=== PATIENT | female | born 1950 | race Caucasian/White ===

== ENCOUNTER 2019-05-01 14:57 | Emergency (ER) | payer MEDICARE ==
[~2019-05-01] VITALS: Ht 172.7 cm; Wt 107.0 kg
--- NOTE | 2019-05-01 15:51 | ED General ---
General Stated Complaint: ALTERED MENTAL STATUS Source of Information: Patient, Family Exam Limitations: Other (difficulty thinking of words) History of Present Illness Date Seen by Provider: May 01, 2019 Time Seen by Provider: 15:30 Initial Comments The patient is a very pleasant 68-year-old female who presents for evaluation of difficulty speaking and confusion. She states that her symptoms started yesterday morning. She states that she had an appointment with her PCP yesterday for the confusion. Today the patient had a phone call with her daughter who lives out of state and the daughter called the patient's sister who lives locally. The patient's sister had not seen the patient for about 2 or 3 weeks. The patient denies headache, acute visual changes, neck pain, nausea or vomiting, focal weakness or focal numbness, chest pain or shortness of breath, abdominal or back pain, difficulty walking, or syncope. The patient's sister noted some slurred speech at home but feels that it is better now. The patient is able to tell me her name and the year but she struggles to tell me the president's name and where she is. She appears frustrated and realizes that she is having difficulty with word finding. She mentions that she had a small stroke years ago but that there was no treatment recommended and that it was incidentally found. Severity: Moderate Associated Systoms: Denies Symptoms Allergies and Home Medications Patient Home Medication List Home Medication List Reviewed: Yes Review of Systems Review of Systems Constitutional: no symptoms reported EENTM: no symptoms reported Respiratory: no symptoms reported Cardiovascular: no symptoms reported Gastrointestinal: no symptoms reported Genitourinary: no symptoms reported Musculoskeletal: no symptoms reported Skin: no symptoms reported Psychiatric/Neurological: Other (confusion, difficulty speaking) Hematologic/Lymphatic: No Symptoms Reported Immunological/Allergic: no symptoms reported All Other Systems Reviewed Negative Unless Noted: Yes Past Klnklcj-Fwpjzp-Itpkno Hx Past Med/Social Hx: Reviewed Nursing Past Med/Soc Hx Physical Exam Vital Signs Capillary Refill : Height, Weight, BMI Height: '" Weight: lbs. oz. kg; BMI Method: General Appearance: No Apparent Distress, WD/WN Eyes: Bilateral Eye Normal Inspection, Bilateral Eye PERRL, Bilateral Eye EOMI HEENT: PERRL/EOMI, TMs Normal Neck: Full Range of Motion, Normal Inspection, Non Tender, Supple Respiratory: Chest Non Tender, Lungs Clear, Normal Breath Sounds, No Accessory Muscle Use, No Respiratory Distress Cardiovascular: Regular Rate, Rhythm, No Edema, No Murmur Gastrointestinal: Normal Bowel Sounds, No Organomegaly, No Pulsatile Mass, Soft Extremity: Normal Capillary Refill, Non Tender Neurologic/Psychiatric: Alert, Oriented x3, No Motor/Sensory Deficits, Normal Mood/Affect, 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 Norm as Tested, Other (no facial droop or dysphasia noted, excellent strength in all extremities, normal gait, difficulty finding words and mild confusion, NIH: 2 (aphasia, slurred speech)) Skin: Normal Color, Warm/Dry Progress/Results/Core Measures Suspected Sepsis SIRS Temperature: Pulse: Respiratory Rate: Laboratory Tests 05/01/19 16:24: White Blood Count 10.0 Blood Pressure / Mean: Laboratory Tests 05/01/19 16:24: Creatinine 0.90, INR Comment 1.0, Platelet Count 245, Total Bilirubin 0.2 Results/Orders Lab Results Laboratory Tests Test 05/01/19 16:24 Range/Units White Blood Count 10.0 4.3-11.0 10^3/uL Red Blood Count 4.11 L 4.35-5.85 10^6/uL Hemoglobin 13.4 11.5-16.0 G/DL Hematocrit 40 35-52 % Mean Corpuscular Volume 98 80-99 FL Mean Corpuscular Hemoglobin 33 25-34 PG Mean Corpuscular Hemoglobin Concent 33 32-36 G/DL Red Cell Distribution Width 12.8 10.0-14.5 % Platelet Count 245 130-400 10^3/uL Mean Platelet Volume 9.1 7.4-10.4 FL Neutrophils (%) (Auto) 58 42-75 % Lymphocytes (%) (Auto) 31 12-44 % Monocytes (%) (Auto) 8 0-12 % Eosinophils (%) (Auto) 2 0-10 % Basophils (%) (Auto) 1 0-10 % Neutrophils # (Auto) 5.8 1.8-7.8 X 10^3 Lymphocytes # (Auto) 3.1 1.0-4.0 X 10^3 Monocytes # (Auto) 0.8 0.0-1.0 X 10^3 Eosinophils # (Auto) 0.2 0.0-0.3 10^3/uL Basophils # (Auto) 0.1 0.0-0.1 10^3/uL Prothrombin Time 13.5 12.2-14.7 SEC INR Comment 1.0 0.8-1.4 Activated Partial Thromboplast Time 28 24-35 SEC Sodium Level 144 135-145 MMOL/L Potassium Level 4.1 3.6-5.0 MMOL/L Chloride Level 104 98-107 MMOL/L Carbon Dioxide Level 28 21-32 MMOL/L Anion Gap 12 5-14 MMOL/L Blood Urea Nitrogen 18 7-18 MG/DL Creatinine 0.90 0.60-1.30 MG/DL Estimat Glomerular Filtration Rate > 60 BUN/Creatinine Ratio 20 Glucose Level 139 H 70-105 MG/DL Calcium Level 8.9 8.5-10.1 MG/DL Corrected Calcium 8.8 8.5-10.1 MG/DL Magnesium Level 1.9 1.6-2.4 MG/DL Total Bilirubin 0.2 0.1-1.0 MG/DL Aspartate Amino Transf (AST/SGOT) 16 5-34 U/L Alanine Aminotransferase (ALT/SGPT) 10 0-55 U/L Alkaline Phosphatase 66 40-136 U/L Troponin I < 0.30 <0.30 NG/ML Total Protein 6.9 6.4-8.2 GM/DL Albumin 4.1 3.2-4.5 GM/DL My Orders Orders - LIZETH RUDOLPH DO Cbc With Automated Diff (05/01/19 15:28) Comprehensive Metabolic Panel (05/01/19 15:28) Creatine Kinase (05/01/19 15:28) Creatine Kinase Mb (05/01/19 15:28) Magnesium (05/01/19 15:28) Protime With Inr (05/01/19 15:28) Partial Thromboplastin Time (05/01/19 15:28) Ua Culture If Indicated (05/01/19 15:28) Ct Head Wo (05/01/19 15:28) Ekg Tracing (05/01/19 15:59) Troponin I (05/01/19 15:59) Therapy Coordinator (05/01/19 15:59) Vital Signs/I&O Capillary Refill : Progress Note : Progress Note @1710 - patient and family updated on lab and imaging results. I'm still convinced the patient is having stroke-like symptoms and feel that she needs additional imaging of her brain and possible MRI and neurologic workup and evaluation. The patient and her family agree. [facility] does not have an MRI or neurology ability so the patient was given a choice between the next closest hospitals and either [facility] or the [facility]. She prefers to go to [place]. Jennifer Baltazar's transfer line was called at this time. They will get a hospitalist on the line and call back. @1720 - Dr. Walter Lechuga at [facility] [place] accepts the pt for transfer. He is agreeable to private vehicle (as the patient originally preferred) or ambulance transport. ECG Comment @1625 - Sinus bradycardia., Rate of 54, no acute ischemic findings noted, no STEMI, reviewed and interpreted by myself Diagnostic Imaging Comments [facility], [place] NAME: PATRICIA CURRAN [facility] REC#: [id number] PT STATUS: REG ER : 1950 PHYSICIAN: LIZETH RUDOLPH DO ADMIT DATE: 05/01/19/ER FS Draft Date of Exam:05/01/19 CT HEAD WO PROCEDURE: CT head without contrast. TECHNIQUE: Multiple contiguous axial images were obtained through the brain without the use of intravenous contrast. Auto Exposure Controls were utilized during the CT exam to meet ALARA standards for radiation dose reduction. INDICATION: Altered mental status. Confusion. COMPARISON: None. FINDINGS: BRAIN: No parenchymal hemorrhage, midline shift, or mass effect. Focal hypodensities in the region of both caudate heads are compatible with old lacunar infarcts. Adrian-white matter differentiation is adequately preserved, without evidence of acute territorial infarct. Moderate periventricular and subcortical low-density white matter changes. Mild prominence of the ventricles and sulci consistent with cortical and cerebellar parenchymal volume loss. EXTRA-AXIAL SPACES: No subdural or epidural collections. ORBITS AND PARANASAL SINUSES: Visualized orbits and globes are intact. Visualized paranasal sinuses and mastoid air cells are clear. CALVARIUM AND SOFT TISSUES: The calvarium is intact. No fractures or suspicious bony lesions. The extracranial soft tissues are unremarkable. IMPRESSION: No acute intracranial pathology. Chronic changes consisting of old lacunar infarcts, age-related volume loss, and nonspecific white matter disease, most commonly attributed to small vessel ischemic change. Dictated on workstation # [id number] Dict: 05/01/19 1605 Trans: 05/01/19 1608 [id number] Interpreted by: MIGUEL MORENO DO Electronically signed by: Departure Impression Primary Impression: Stroke-like symptoms Additional Impressions: Aphasia Slurred speech Disposition: XFER SHT-TRM HOSP Condition: Stable Transfer Time Spoke to Accepting Phy: 17:[address] Walter Lechuga at [facility] accepts the transfer Transfer Time: 17:30 Transfer Facility: [facility] Departure-Patient Inst. Referrals: NO,LOCAL PHYSICIAN (PCP/Family) Primary Care Physician LIZETH RUDOLPH DO May 01, 2019 15:51
--- NOTE | 2019-05-01 16:09 | Diagnostic Imaging Report ---
PROCEDURE: CT head without contrast. TECHNIQUE: Multiple contiguous axial images were obtained through the brain without the use of intravenous contrast. Auto Exposure Controls were utilized during the CT exam to meet ALARA standards for radiation dose reduction. INDICATION: Altered mental status. Confusion. COMPARISON: None. FINDINGS: BRAIN: No parenchymal hemorrhage, midline shift, or mass effect. Focal hypodensities in the region of both caudate heads are compatible with old lacunar infarcts. Adrian-white matter differentiation is adequately preserved, without evidence of acute territorial infarct. Moderate periventricular and subcortical low-density white matter changes. Mild prominence of the ventricles and sulci consistent with cortical and cerebellar parenchymal volume loss. EXTRA-AXIAL SPACES: No subdural or epidural collections. ORBITS AND PARANASAL SINUSES: Visualized orbits and globes are intact. Visualized paranasal sinuses and mastoid air cells are clear. CALVARIUM AND SOFT TISSUES: The calvarium is intact. No fractures or suspicious bony lesions. The extracranial soft tissues are unremarkable. IMPRESSION: No acute intracranial pathology. Chronic changes consisting of old lacunar infarcts, age-related volume loss, and nonspecific white matter disease, most commonly attributed to small vessel ischemic change. Dictated by: Dictated on workstation # [id number]
[2019-05-01 16:32] LABS: BASOPHILS # (AUTO) 0.1 10^3/uL (0.0-0.1); BASOPHILS % (AUTO) 1 % (0-10); EOSINOPHILS # (AUTO) 0.2 10^3/uL (0.0-0.3); EOSINOPHILS % (AUTO) 2 % (0-10); HEMATOCRIT 40 % (35-52); HEMOGLOBIN 13.4 G/DL (11.5-16.0); LYMPHOCYTES # (AUTO) 3.1 X 10^3 (1.0-4.0); LYMPHOCYTES % (AUTO) 31 % (12-44); MEAN CORPUSCULAR HEMOGLOBIN 33 PG (25-34); MEAN CORPUSCULAR HGB CONC 33 G/DL (32-36); MEAN CORPUSCULAR VOLUME 98 FL (80-99); MEAN PLATELET VOLUME 9.1 FL (7.4-10.4); MONOCYTES # (AUTO) 0.8 X 10^3 (0.0-1.0); MONOCYTES % (AUTO) 8 % (0-12); NEUTROPHILS # (AUTO) 5.8 X 10^3 (1.8-7.8); NEUTROPHILS % (AUTO) 58 % (42-75); PLATELET COUNT 245 10^3/uL (130-400); RED CELL DISTRIBUTION WIDTH 12.8 % (10.0-14.5)
[2019-05-01 16:45] LABS: PROTHROMBIN TIME PATIENT 13.5 SEC (12.2-14.7)
[2019-05-01 16:52] LABS: SODIUM 144 MMOL/L (135-145)
[2019-05-01 16:53] LABS: ALANINE AMINOTRANSFERASE 10 U/L (0-55); ALKALINE PHOSPHATASE 66 U/L (40-136); BUN/CREATININE RATIO 20; CALCIUM 8.9 MG/DL (8.5-10.1); CARBON DIOXIDE 28 MMOL/L (21-32); CHLORIDE 104 MMOL/L (98-107); GFR ESTIMATED > 60; GLUCOSE 139 MG/DL (70-105); MAGNESIUM 1.9 MG/DL (1.6-2.4); POTASSIUM 4.1 MMOL/L (3.6-5.0); TOTAL PROTEIN 6.9 GM/DL (6.4-8.2)
[2019-05-01 16:54] LABS: ALBUMIN 4.1 GM/DL (3.2-4.5); BILIRUBIN,TOTAL 0.2 MG/DL (0.1-1.0)
[2019-05-01 18:20] VITALS: BP 122/71
[2019-05-02 09:25] LABS: CREATINE KINASE 64 U/L (29-168)
[2019-05-02 09:31] LABS: CREATINE KINASE MB 1.3 NG/ML (<6.6)
== END 2019-05-01 18:20 | disposition short-term general hospital (02) ==
LOC: EDUNIT# 14:57 → ER FS 14:58
DX: R29.818 Other symptoms and signs involving the nervous system (principal); R47.01 Aphasia; R47.81 Slurred speech; Z86.73 Personal history of transient ischemic attack (TIA), and cerebral infarction without residual deficits
CPT/HCPCS: 36415; 70450; 80053; 82550; 82553; 83735; 84484; 85025; 85610; 85730; 93005

== ENCOUNTER → 2020-02-18 | Outpatient (CLI) | payer MEDICARE ==
--- NOTE | 2020-02-18 16:26 | Diagnostic Imaging Report ---
EXAMINATION: CT Lung Screening. INDICATION: History of tobacco use with a 51 pack year history. Currently smoking one half pack to one pack a day. Cough and shortness of air. TECHNIQUE: Noncontrast, low-dose CT imaging performed according to lung cancer screening protocol. Auto Exposure Controls were utilized during the CT exam to meet ALARA standards for radiation dose reduction. COMPARISON: None. FINDINGS: HEART/MEDIASTINUM: The heart size normal. Scattered mildly prominent coronary artery calcification. Thoracic aortic contour appearing unremarkable with mild wall calcification. There are a few prominent mediastinal lymph nodes present. The majority of these have a short axis dimension of less than 1 cm. The largest in the right precarinal region measures 14 x 12 mm. LUNGS/MEASURED PULMONARY NODULES: There are scattered areas of peribronchial thickening. There are multiple areas of endobronchial filling defect. Marker lesions are as follow: Image 86 series 2, 8 mm endobronchial lesion, left upper lobe. Image 102 series 2, 3 mm filling defect in the superior segment of the left lower lobe. Image 135 series 2, 4 mm filling defect centrally in the left lower lobe. Image 149 series 2, central right lower lobe 6 mm filling defect. Image 166 series 2, 6 mm filling defect. There is a solid nodule along the undersurface of the right major fissure, right lower lobe. This measures 8 x 6 x 4 mm. OTHER: The visualized portions of the upper abdomen are unremarkable. The thoracic spine is with mildly advanced degenerative change. IMPRESSION: 1. Multiple endobronchial filling defects. Given additional scattered peribronchial thickening and multiplicity, these likely reflect mucus secretions, perhaps owing to chronic bronchitis. Developing true endobronchial nodules would not be excluded on this baseline study. 2. Nodular density along the fissure plane right lower lobe. Given location, this favors a likely benign process. 3. Scattered coronary artery calcification. LUNG-RADS CATEGORY: 4 A-S. LUNG SCREENING MANAGEMENT/RECOMMENDATIONS: 3 month followup low-dose CT study. Please note that this is a low dose CT examination, intended for lung cancer screening of high risk patients. As a technical result, the examination is limited in diagnostic quality compared to a conventional CT examination of the chest. Dictated by: Dictated on workstation # [id number]
== END ==
LOC: RAD 12:46
PROVIDERS: ATTEND Nurse Practitioner Family
DX: Z12.2 Encounter for screening for malignant neoplasm of respiratory organs (principal); F17.210 Nicotine dependence, cigarettes, uncomplicated; R91.8 Other nonspecific abnormal finding of lung field; I25.10 Atherosclerotic heart disease of native coronary artery without angina pectoris

== ENCOUNTER → 2020-06-02 | Outpatient (CLI) | payer MEDICARE | LOC: CARD 12:14 | PROVIDERS: ATTEND Internal Medicine Cardiovascular Disease | DX: I25.10 Atherosclerotic heart disease of native coronary artery without angina pectoris (principal); I10 Essential (primary) hypertension; E11.9 Type 2 diabetes mellitus without complications; E78.2 Mixed hyperlipidemia | CPT/HCPCS: 93306 ==

== ENCOUNTER → 2020-06-16 | Outpatient (CLI) | payer MEDICARE ==
[~2020-06-16] VITALS: Ht 175 cm; Wt 109.0 kg
[~2020-06-16] MED LIST: CATHETER FLUSH 10 ML SYR IV PRN; REGADENOSON 0.4 MG/5 ML SYR (LEXISCAN) IV ONE
[2020-06-16 10:50] VITALS: BP 174/94
== END ==
LOC: CARD 08:45
PROVIDERS: ATTEND Internal Medicine Cardiovascular Disease
DX: I25.10 Atherosclerotic heart disease of native coronary artery without angina pectoris (principal); E11.9 Type 2 diabetes mellitus without complications; I10 Essential (primary) hypertension; E78.2 Mixed hyperlipidemia
CPT/HCPCS: 78452; 93017; A9502

== ENCOUNTER 2020-06-23 13:00 | Day surgery (SDC) | payer MEDICARE ==
[~2020-06-23] VITALS: Ht 175 cm; Wt 109.0 kg
[2020-06-23] VITALS (12 sets, daily range): BP systolic 121–149; BP diastolic 53–87
[2020-06-23] MEDS ORDERED: NS IV 1000 ML 1,000 ML IV SCH ×2 (13:15→14:53)
[2020-06-23] MEDS ORDERED: HEParin (CATH LAB) 2,000 ML IV ONE (13:17)
[2020-06-23] MEDS ORDERED: NS IV 1000 ML 1,000 ML ONE (13:17)
[2020-06-23] MEDS ORDERED: LIDOCAINE 1% INJ 20 ML 20 ML VIAL ONE (13:17)
[2020-06-23 13:35] LABS: HEMOGLOBIN 14.2 g/dL (11.5-16.0); MEAN PLATELET VOLUME 9.1 fL (9.0-12.2)
--- NOTE | 2020-06-23 13:46 | Diagnostic Imaging Report ---
INDICATION: Coronary artery disease. EXAMINATION: Frontal chest obtained at 1:37 PM. FINDINGS: The heart is borderline in size. There is mild central vascular congestion. There are chronic appearing increased interstitial markings. There is no acute infiltrate, pneumothorax, or pleural fluid. IMPRESSION: Borderline cardiomegaly with central vascular prominence and chronic appearing increased markings. No acute infiltrate or pleural fluid. Dictated by: Dictated on workstation # [id number]
[2020-06-23 13:48] LABS: ALBUMIN 4.4 GM/DL (3.2-4.5); POTASSIUM 4.2 MMOL/L (3.6-5.0)
[2020-06-23 13:49] LABS: CALCIUM 9.6 MG/DL (8.5-10.1); PROTHROMBIN TIME PATIENT 13.3 SEC (12.2-14.7)
[2020-06-23 13:51] LABS: TOTAL PROTEIN 7.5 GM/DL (6.4-8.2)
[2020-06-23 13:52] LABS: BILIRUBIN,TOTAL 0.5 MG/DL (0.1-1.0)
[2020-06-23 13:54] LABS: CREATININE SERUM 0.93 MG/DL (0.60-1.30)
[2020-06-23] MEDS ORDERED: fentaNYL INJECTION 100 MCG/2 ML AMP ONE (14:03)
[2020-06-23] MEDS ORDERED: MIDAZOLAM 5 MG/5 ML (VERSED) VIAL ONE (14:03)
[2020-06-23] MEDS ORDERED: [UNRECOGNIZED DRUG - OTHER] PO (14:13)
[2020-06-23] MEDS ORDERED: METO-333 PO (14:13)
[2020-06-23] MEDS ORDERED: BIOT5000 PO (14:13)
[2020-06-23] MEDS ORDERED: ESTR1TAB24 PO (14:13)
[2020-06-23] MEDS ORDERED: ASPI-1238 PO (14:13)
[2020-06-23] MEDS ORDERED: FEXO-14 PO (14:13)
[2020-06-23] MEDS ORDERED: MULT-1029 PO (14:13)
[2020-06-23] MEDS ORDERED: LEVO125T6 PO (14:13)
[2020-06-23] MEDS ORDERED: ROSU20TA32 PO (14:13)
[2020-06-23] MEDS ORDERED: PRIM50TA33 PO (14:13)
[2020-06-23] MEDS ORDERED: BETA15CR4 TP (14:13)
[2020-06-23] MEDS ORDERED: CITA40TA11 PO (14:13)
[2020-06-23] MEDS ORDERED: CHOL100048 PO (14:13)
[2020-06-23] MEDS ORDERED: MELO15TA39 PO (14:13)
[2020-06-23] MEDS ORDERED: CYAN-23 PO (14:13)
[2020-06-23] MEDS ORDERED: METF-397 PO (14:13)
--- NOTE | 2020-06-23 14:14 | NUR ---
I SPOKE WITH THE PATIENT, WENT THROUGH HER MEDICATIONS BROUGHT FROM HOME AND SPOKE WITH APOLINAR IN [place] TO COMPLETE THIS MED REC. PRIMIDONE 50MG LAST FILLED 04/06/20 #90/90DS METFORMIN 500MG LAST FILLED 04/06/20 #180/90DS ROSUVASTATIN 20MG LAST FILLED 04/06/20 #90/90DS LEVOTHYROXINE 0.125MG LAST FILLED 04/06/20 #90/90DS CITALOPRAM 40MG LAST FILLED 06/07/20 #90/90DS MELOXICAM 15MG LAST FILLED 06/08/20 #90/90DS ESTRADIOL 1MG LAST FILLED 04/06/20 #90/90DS [id number] TARTRATE 25MG LAST FILLED 06/21/20 #90/90DS OTC: VITAMIN B-12 ASPIRIN EC 81MG COMPLETE KETO DIET PILL BIOTIN 5000MCG CENTRUM SILVER VITAMIN D3 [place]
--- NOTE | 2020-06-23 14:53 | Cardiac Procedure Note-CS/ASA ---
Pre-Procedure Note Pre-Op Procedure Note H&P Reviewed The H&P was reviewed, patient examined and no changes noted. Date H&P Reviewed: Jun 23, 2020 Time H&P Reviewed: 14:52 Conscious Sedation Pre-Proced Time 14:52 ASA Score 3 For ASA 3 and 4: Consider anesthesia and medical clearance. Also, for patients with a history of failed moderate sedation consider anesthesia. Airway Lungs Heart ASA score ASA 1: a normal healthy patient ASA 2: a patient with a mild systemic disease (mid diabetes, controlled hypertension, obesity x ASA 3: a patient with a severe systemic disease that limits activity (angina, COPD, prior Myocardial infarction) ASA 4: a patient with an incapacitating disease that is a constant threat to life (CHF, renal failure) ASA 5: a moribund patient not expected to survive 24 hrs. (ruptured aneurysm) ASA 6: a declared brain- patient whose organs are being harvested. For emergent operations, add the letter E after the classification Mallampati Classification Grade 3 Sedation Plan Analgesia, Amnesia, Plan communicated to team members, Discussed options with patient/fam, Discussed risks with patient/fam The patient is an appropriate candidate to undergo the planned procedure, sedation, and anesthesia. The patient immediately re-assessed prior to indication. YAIRTZA LOPEZ MD Jun 23, 2020 2:53 pm
--- NOTE | 2020-06-23 14:54 | Discharge Inst-Post CATH ---
Discharge Inst-CATH/EP Problems Reviewed?: Yes Post Cardiac Cath/EP D/C Inst Follow Up/Plan Appointment with Dr. Murrieta's office in 4 weeks <b>CARDIAC CATH/EP PROCEDURE DISCHARGE INSTRUCTIONS</b> ACTIVITY * Go Home directly and rest. * Limit activity of the leg (or wrist if it was used) for 7 days including aerobics, swimming, jogging, bicycling, etc. * Restrict stair-climbing for 7 days if possible, if not, climb up with your non-cath leg, then bring together on the same step. * Avoid lifting, pushing, pulling or excessive movement of the affected extremity for 7 days. * Customary sexual activity may be resumed after 2 days-use caution not to use a position that strains or causes pain to the affected extremity. * No driving for 24 hours. * NO SMOKING. * Avoid straining for bowel movements for 7 days. * Gentle walking on level ground is allowed. * Returning to work will depend on the type of procedure and the results. Your doctor will discuss this with you. CALL YOUR DOCTOR FOR ANY OF THE FOLLOWING: *If bleeding from the puncture site occurs- Apply gentle pressure to site with clean cloth and call your doctor or EMS. * If a knot or lump forms under the skin, increases in size, or causes pain. * If bruising appears to be worsening or moving further down your leg instead of disappearing. * Temperature above 101 F. CARE OF YOUR GROIN INCISION; * Bruising or purple discoloration of the skin near the puncture site is common. * You may shower only, no bathtub bathing for 5 days. Be careful to avoid slipping as your leg may feel stiff. * If a closure device was used on your femoral artery, please see the attached guide regarding care of the device and your leg. * Leave dressing on FOR 24 hours. CARE OF YOUR WRIST INCISION; * Bruising or purple discoloration of the skin near the puncture site is common. * You may shower. * DO NOT submerge wrist. * Leave dressing on FOR 24 hours. YARITZA MURRIETA MD Jun 23, 2020 2:54 pm
--- NOTE | 2020-06-23 14:58 | Cardiac Cath Report ---
Cardiac Cath Report Physician (s)/Software Publisher (s) Physician YARITZA LOPEZ MD Pre-Procedure Diagnosis Pre-Procedure Diagnosis: coronary artery disease Post-Procedure Note Procedure Start Date: Jun 23, 2020 Name of Procedure: Left heart catheterization Findings/Procedure Note PROCEDURE NOTE: 69 years old lady with history of hypertension, hyperlipidemia, has been having chest pain, had an abnormal stress test, recommended cardiac catheterization possible PTCA. After explaining the procedure to the patient, all pros and cons were explained, all questions were answered. The patient signed the consent and then she was placed on the cardiac catheterization laboratory. Groin was prepped SL fashion local anesthesia was used. Sheath placed in the right femoral artery. Eddy right and left catheter were used to access the coronary system. Pigtail was used to access the left ventricular cavity. Left ventriculogram was done At the end of the procedure the sheath was removed. Closure device was used FINDINGS: Hemodynamics LV 133/14, end-diastolic pressure 14 Aorta 144/47 mean of 82 ANATOMY: Left Main is free of obstructive disease Left Anterior Descending is tortuous with mild disease nonobstructive disease Left Circumflex has mild disease nonobstructive disease Right Coronory Artery is totally occluded at the midportion getting filled by collaterals from the left system LV Gram is prominent with akinesia of the inferior wall, systolic function is reduced estimated ejection fraction 40 percent CONCLUSION: 1. 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 Tortuous LAD with mild disease nonobstructive disease 3. Prominent left ventricle with akinesia of the inferior wall, ejection fraction 40 percent DISCUSSION AND RECOMMENDATION: Patient is asymptomatic at this time, medical therapy is recommended, if the patient becomes symptomatic we will consider high risk intervention at a tertiary care center for the right coronary artery Anesthesia Type: Conscious Sedation Estimated blood loss (mL): 25 ml Contrast Amount: 47 ml Total Radiation Dose: 594 mGy Post-Procedure Diagnosis Post-operative diagnosis: Coronary artery disease Congestive heart failure, chronic compensated left ventricular systolic dysfunction, ischemic cardiomyopathy Hypertension Hyperlipidemia YARITZA LOPEZ MD Jun 23, 2020 2:58 pm
[2020-06-23] MEDS ORDERED: PATIENT MAY USE OWN MEDS, ALL PO SCH (15:00)
== END 2020-06-23 18:30 | disposition home or self-care (01) ==
LOC: CATH 13:00
PROVIDERS: ATTEND Internal Medicine Cardiovascular Disease
DX: I25.10 Atherosclerotic heart disease of native coronary artery without angina pectoris (principal); I11.0 Hypertensive heart disease with heart failure; I50.22 Chronic systolic (congestive) heart failure; R94.39 Abnormal result of other cardiovascular function study; E78.2 Mixed hyperlipidemia; E11.9 Type 2 diabetes mellitus without complications; F17.210 Nicotine dependence, cigarettes, uncomplicated; Z79.899 Other long term (current) drug therapy; Z86.73 Personal history of transient ischemic attack (TIA), and cerebral infarction without residual deficits; Z88.2 Allergy status to sulfonamides; Z88.5 Allergy status to narcotic agent; Z82.3 Family history of stroke
CPT/HCPCS: 71045; 80053; 80061; 85027; 85610; 85730; 87081; 93458; C1760; C1894; 36415

== ENCOUNTER → 2020-08-03 | Outpatient (CLI) | payer MEDICARE ==
[~2020-08-03] MED LIST changes: +ASPI-1238 PO; +BETA15CR4 TP; +BIOT5000 PO; -CATHETER FLUSH 10 ML SYR IV PRN; +CHOL100048 PO; +CITA40TA11 PO; +CYAN-23 PO; +ESTR1TAB24 PO; +FEXO-14 PO; +LEVO125T6 PO; +MELO15TA39 PO; +METF-397 PO; +METO-333 PO; +MULT-1029 PO; +PRIM50TA33 PO; -REGADENOSON 0.4 MG/5 ML SYR (LEXISCAN) IV ONE; +ROSU20TA32 PO; +[UNRECOGNIZED DRUG - OTHER] PO
--- NOTE | 2020-08-03 15:30 | Diagnostic Imaging Report ---
EXAMINATION: CT Chest without contrast (lung screening). TECHNIQUE: Multiple contiguous axial images were obtained through the chest without the use of intravenous contrast according to lung cancer screening protocol. All CT scans use one or more of the following dose optimizing techniques: automated exposure control, MA and/or KvP adjustment based on a patient size and exam type, or iterative reconstruction. HISTORY: 51 pack year history of smoking. COMPARISON: None available. FINDINGS: There is no edema or pneumonia. No pleural effusion. No pneumothorax. Stable perifissural lymph node is seen along the major fissure on the right measuring 7 mm. Previously seen endobronchial filling defect in the lingula is resolved. A few areas of mucous plugging are seen. No suspicious nodules. There is no axillary or supraclavicular lymphadenopathy. There is no mediastinal lymphadenopathy. Heart size is normal. There are mild coronary artery calcifications. No pericardial effusion. Aorta is normal in caliber. Limited views of the upper abdomen are unremarkable. There are no suspicious osseus lesions. IMPRESSION: 1. No suspicious pulmonary nodules. LUNG-RADS CATEGORY: 2 MODIFIER: None. Dictated by: Dictated on workstation # [id number]
== END ==
LOC: RAD FS 12:53
PROVIDERS: ATTEND Nurse Practitioner Family
DX: R91.8 Other nonspecific abnormal finding of lung field (principal); Z87.891 Personal history of nicotine dependence
CPT/HCPCS: 71250

== ENCOUNTER 2020-11-21 13:17 | Emergency (ER) | payer MEDICARE ==
[2020-11-21 13:37] LABS: BASOPHILS % (AUTO) 1 % (0-10); EOSINOPHILS % (AUTO) 3 % (0-10); HEMATOCRIT 40 % (35-52); HEMOGLOBIN 13.7 G/DL (11.5-16.0); LYMPHOCYTES # (AUTO) 2.8 X 10^3 (1.0-4.0); LYMPHOCYTES % (AUTO) 30 % (12-44); MEAN CORPUSCULAR HEMOGLOBIN 32 PG (25-34); MEAN CORPUSCULAR HGB CONC 34 G/DL (32-36); MEAN CORPUSCULAR VOLUME 95 FL (80-99); MEAN PLATELET VOLUME 9.2 FL (7.4-10.4); MONOCYTES # (AUTO) 0.7 X 10^3 (0.0-1.0); MONOCYTES % (AUTO) 7 % (0-12); NEUTROPHILS # (AUTO) 5.4 X 10^3 (1.8-7.8); NEUTROPHILS % (AUTO) 59 % (42-75); PLATELET COUNT 245 10^3/uL (130-400); WHITE BLOOD COUNT 9.2 10^3/uL (4.3-11.0)
[2020-11-21 13:38] LABS: BASOPHILS # (AUTO) 0.1 10^3/uL (0.0-0.1); EOSINOPHILS # (AUTO) 0.3 10^3/uL (0.0-0.3)
[2020-11-21] MEDS ORDERED: ORPHENADRINE 60 MG/2 ML (NORFLEX) AMP (ED ONLY) IVP STA (13:39)
[2020-11-21] MEDS ORDERED: KETOROLAC 30 MG/ML VIAL IVP STA (13:39)
[2020-11-21 13:51] LABS: INR 0.9 (0.8-1.4); PROTHROMBIN TIME PATIENT 12.9 SEC (12.2-14.7)
[2020-11-21 13:55] LABS: SODIUM 136 MMOL/L (135-145)
--- NOTE | 2020-11-21 13:55 | ED Chest Pain ---
General Chief Complaint: Chest Pain Stated Complaint: CHEST PAIN | TINGLING IN ARMS | LIGHT HEADED Nursing Triage Note: Started having R sided chest pain earlier this morning. Is also dizzy and having neck. Also felt a little dizzy yesterday and had soreness in her chest. Nursing Sepsis Screen: No Definite Risk Source: patient, old records (heart cath Jun 2020) History of Present Illness Date Seen by Provider: Nov 21, 2020 Time Seen by Provider: 13:21 Initial Comments 70-year-old female presenting with complaints of right-sided chest pain since yesterday. She also feels that she is having some dizziness and pain going into her neck. She states that this started yesterday and she has not tried taking anything for pain. She was not doing anything when the pain came on. She denies any recent fall or injury. She states it feels like muscle pain in her chest. She is a smoker and has some wheezing. She does have an extensive cardiac history with a heart cath and June after an abnormal stress test showing that she had coronary artery disease that they decided to treat medically. However it was stated in the report that if she had need for further intervention she would need to go to a tertiary center as she might need bypass or something more than just a stent. She states that she was not having any pain or symptoms at the time of the heart cath. She denies having symptoms like this in her chest in the past. She felt that the pain was worse today so she came to the emergency department to be evaluated. Timing/Duration: getting worse, 1 day Severity/Quality: sharp (muscle pain right anterior chest wall) Radiation: neck (right side) Activities at Onset: none (reports sitting in chair) Prior CP/Workup: angina, cardiac cath, stress test ASA po MARINE CONSULTANT: Yes (81 mg) NTG SL MARINE CONSULTANT: No Associated Symptoms: No abdominal pain, No back pain, No diaphoresis; dizziness; No edema; fatigue; No fever/chills, No headache, No heartburn, No nausea/vomiting, No rash; shortness of breath (chronic); No swelling/lump in chest, No syncope, No weakness Allergies and Home Medications Allergies Coded Allergies: Sulfa (Sulfonamide Antibiotics) (Verified Allergy, Unknown, 05/01/19) aspirin (Verified Allergy, Unknown, 05/01/19) Home Medications Aspirin 81 Mg Tablet.dr, 81 MG PO DAILY, (Reported) Baclofen 5 Mg Tablet, 5 MG PO BID PRN for chest wall pain/muscle spasm Prescribed by: OMAR BACH on 11/21/20 151 Biotin 5,000 Mcg Tab.rapdis, 5,000 MCG PO HS, (Reported) Cholecalciferol (Vitamin D3) 25 Mcg Capsule, 25 MCG PO HS, (Reported) Citalopram Hydrobromide 40 Mg Tablet, 40 MG PO HS, (Reported) Cyanocobalamin (Vitamin B-12) 1,000 Mcg Capsule, 1,000 MCG PO HS, (Reported) Estradiol 1 Mg Tablet, 1 MG PO HS, (Reported) Fexofenadine HCl 60 Mg Tablet, 60 MG PO HS, (Reported) Levothyroxine Sodium 125 Mcg Tablet, 125 MCG PO DAILY, (Reported) TAKES 1 HOUR BEFORE EATING BREAKFAST Meloxicam 15 Mg Tablet, 15 MG PO HS, (Reported) Metformin HCl 500 Mg Tablet, 500 MG PO BID, (Reported) Metoprolol Tartrate 25 Mg Tablet, 25 MG PO DAILY, (Reported) Multivit-Min/FA/Lycopene/Lut 1 Each Tablet, 1 EACH PO DAILY, (Reported) Prednisone 20 Mg Tab, 40 MG PO DAILY Prescribed by: OMAR BACH on 11/21/201516 Primidone 50 Mg Tablet, 50 MG PO HS, (Reported) Rosuvastatin Calcium 20 Mg Tablet, 20 MG PO HS, (Reported) [Complete Keto] , 1 EA PO HS, (Reported) Patient Home Medication List Home Medication List Reviewed: Yes Review of Systems Review of Systems Constitutional: No chills, No diaphoresis; dizziness; No fever; malaise EENTM: No Symptoms Reported Respiratory: Cough (intermittent smoker's cough), Shortness of Air (tightness in chest) Cardiovascular: See HPI Gastrointestinal: Denies Abdominal Pain, Denies Nausea, Denies Vomiting Genitourinary: No Symptoms Reported Musculoskeletal: other (tender to palpation right parasternal chest wall pain) Skin: no symptoms reported Psychiatric/Neurological: Anxiety Endocrine: No Symptoms Reported Hematologic/Lymphatic: No Symptoms Reported Past Kbivzlq-Xwjnfc-Vxfsae Hx Past Med/Social Hx: Reviewed Nursing Past Med/Soc Hx Patient Social History Alcohol Use: Denies Use Number of Drinks Today: BB Alcohol Beverage of Choice: Beer, [place] Smoking Status: Current Everyday Smoker Type Used: Cigarettes 2nd Hand Smoke Exposure: No Recent Infectious Disease Expo: No Recent Hopitalizations: No Immunizations Up To Date Tetanus Booster (TDap): Unknown Seasonal Allergies Seasonal Allergies: No Past Medical History Surgeries: Yes (hernia repair; ) Hysterectomy, Orthopedic Respiratory: No Cardiac: Yes High Cholesterol, Hypertension Neurological: Yes Stroke Genitourinary: No Gastrointestinal: No Musculoskeletal: No Endocrine: Yes Diabetes, Non-Insulin dep HEENT: No Cancer: No Psychosocial: No Integumentary: No Physical Exam Vital Signs Vital Signs - First Documented 11/21/20 13:22 Temp 36.6 Pulse 62 Resp 16 B/P (MAP) 150/67 (94) Pulse Ox 97 Capillary Refill : Less Than 3 Seconds Height, Weight, BMI Height: 5'8.00" Weight: 236lbs. oz. [id number]; 35.59 BMI Method:Stated General Appearance: No Apparent Distress, WD/WN HEENT: Pharynx Normal Neck: Full Range of Motion, Non Tender, Supple; No Carotid Bruit Respiratory: Lungs Clear, No Accessory Muscle Use, No Respiratory Distress, Wheezing (end expiratory wheezing diffusely), Other (tender to palpation on right parasternal chest wall) Cardiovascular: Regular Rate, Rhythm, No Edema, No JVD, No Murmur, Normal Peripheral Pulses Gastrointestinal: Normal Bowel Sounds, No Pulsatile Mass, Non Tender, Soft Rectal: Deferred Extremity: Normal Capillary Refill, No Pedal Edema Neurologic/Psychiatric: Alert, Oriented x3, 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-XII Norm as Tested Skin: Normal Color, Warm/Dry Progress/Results/Core Measures Results/Orders Lab Results Laboratory Tests Test 11/21/20 13:30 Range/Units White Blood Count 9.2 4.3-11.0 10^3/uL Red Blood Count 4.23 L 4.35-5.85 10^6/uL Hemoglobin 13.7 11.5-16.0 G/DL Hematocrit 40 35-52 % Mean Corpuscular Volume 95 80-99 FL Mean Corpuscular Hemoglobin 32 25-34 PG Mean Corpuscular Hemoglobin Concent 34 32-36 G/DL Red Cell Distribution Width 12.6 10.0-14.5 % Platelet Count 245 130-400 10^3/uL Mean Platelet Volume 9.2 7.4-10.4 FL Immature Granulocyte % (Auto) 0 % Neutrophils (%) (Auto) 59 42-75 % Lymphocytes (%) (Auto) 30 12-44 % Monocytes (%) (Auto) 7 0-12 % Eosinophils (%) (Auto) 3 0-10 % Basophils (%) (Auto) 1 0-10 % Neutrophils # (Auto) 5.4 1.8-7.8 X 10^3 Lymphocytes # (Auto) 2.8 1.0-4.0 X 10^3 Monocytes # (Auto) 0.7 0.0-1.0 X 10^3 Eosinophils # (Auto) 0.3 0.0-0.3 10^3/uL Basophils # (Auto) 0.1 0.0-0.1 10^3/uL Immature Granulocyte # (Auto) 0.0 0.0-0.1 10^3/uL Prothrombin Time 12.9 12.2-14.7 SEC INR Comment 0.9 0.8-1.4 Activated Partial Thromboplast Time 29 24-35 SEC Sodium Level 136 135-145 MMOL/L Potassium Level 4.3 3.6-5.0 MMOL/L Chloride Level 102 98-107 MMOL/L Carbon Dioxide Level 26 21-32 MMOL/L Anion Gap 8 5-14 MMOL/L Blood Urea Nitrogen 17 7-18 MG/DL Creatinine 0.76 0.60-1.30 MG/DL Estimat Glomerular Filtration Rate > 60 BUN/Creatinine Ratio 22 Glucose Level 121 H 70-105 MG/DL Calcium Level 9.5 8.5-10.1 MG/DL Corrected Calcium 9.3 8.5-10.1 MG/DL Magnesium Level 1.7 1.6-2.4 MG/DL Total Bilirubin 0.2 0.1-1.0 MG/DL Aspartate Amino Transf (AST/SGOT) 14 5-34 U/L Alanine Aminotransferase (ALT/SGPT) 11 0-55 U/L Alkaline Phosphatase 68 40-136 U/L Troponin I < 0.30 <0.30 NG/ML Pro-B-Type Natriuretic Peptide 496.8 H <75.0 PG/ML Total Protein 7.1 6.4-8.2 GM/DL Albumin 4.3 3.2-4.5 GM/DL Lipase 61 8-78 U/L My Orders Orders - OMAR BACH MD Ekg Tracing (11/21/20 13:23) Cbc With Automated Diff (11/21/20 13:24) Magnesium (11/21/20 13:24) Chest 1 View Ap/Pa Only (11/21/20 13:24) Comprehensive Metabolic Panel (11/21/20 13:24) Protime With Inr (11/21/20 13:24) Partial Thromboplastin Time (11/21/20 13:24) O2 (11/21/20 13:24) Monitor-Rhythm Ecg Trace Only (11/21/20 13:24) Ed Iv/Invasive Line Start (11/21/20 13:24) Lipase (11/21/20 13:24) Troponin I Fs (11/21/20 13:24) Probnp Fs (11/21/20 13:24) Ketorolac Injection (Toradol Injection) (11/21/20 13:39) Orphenadrine Inj (Ed Only) (Norflex Inje (11/21/20 13:39) Vital Signs/I&O 11/21/20 11/21/20 13:22 15:33 Temp 36.6 Pulse 62 70 Resp 16 19 B/P (MAP) 150/67 (94) 156/64 Pulse Ox 97 97 Blood Pressure Mean: 94 Progress Progress Note #1: Progress Note Check labs, ECG, coags, CXR. 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 Initial telemetry monitoring shows sinus rhythm with a heart rate of 60 without ectopy. With her having some reproducible anterior chest wall pain we will try a dose of Toradol and Norflex. With her pain present since yesterday a single set of cardiac enzymes should be enough to tell if this is cardiac in nature since it would be over 6 hours of pain. Patient reports that she cannot take more than 81 mg of aspirin because of GI upset so she did not want to take more than the baby aspirin she is already taking at home. Differential diagnosis would include acute coronary syndrome, myocardial infarction, non-STEMI, chest wall pain, COPD exacerbation, GERD with esophageal spasms. Progress Note #2: Progress Note Initial electrocardiogram shows sinus rhythm without ST elevation. She does have some premature atrial complexes. Appears similar to prior tracing from 2019. Progress Note #3: Progress Note labs are all stable without acute significant abnormality and no elevation of troponin considering worse pain for over 6 hours today. Improved pain with treatment in ED. Will treat with 3 days steroid burst, baclofen for muscle relaxer and check with clinic for continued concerns. seems to be more musculoskeletal or chest wall instead of cardiac or pulmonary. Initial ECG Impression Date: Nov 21, 2020 Initial ECG Impression Time: 13:21 Initial ECG Rate: 61 Initial ECG Rhythm: Normal Sinus Initial ECG Comparisson: Unchanged Comment Sinus rhythm with a heart rate of 61 bpm. MI interval 178 ms. QT interval 459 ms with a QTc interval 463 ms. There are premature atrial complexes. Q waves in II, III, and aVF consistent with an old inferior infarct. No acute ST elevation. Appears similar to tracings from 2019. Diagnostic Imaging Diagonstic Imaging: Xray Plain Films/CT/US/NM/MRI: chest Comments [facility], [place] NAME: PATRICIA CURRAN [facility] REC#: [id number] PT STATUS: REG ER : 1950 PHYSICIAN: OMAR BACH MD ADMIT DATE: 11/21/20/ER FS Draft Date of Exam:11/21/20 CHEST 1 VIEW AP/PA ONLY Indication: Chest pain. Comparison made with prior CT chest 08/03/2020 and prior radiographs of the chest from 06/23/2020. Findings: There are some chronic interstitial changes within the lungs. There is flattening of the diaphragms suggesting air trapping. There is no new infiltrate or consolidation evident. There are no findings of an effusion or pneumothorax. Heart size prominent. The central pulmonary vascularity appears appropriate. IMPRESSION: Stable radiographic appearance of the chest. There are chronic pulmonary interstitial changes which are not appreciably changed from June 2020. There is no new infiltrate or consolidation evident. There is stable enlargement of the cardiac silhouette but pulmonary vascularity currently appears appropriate without evidence of edema or failure. Dictated on workstation # [id number] Dict: 11/21/20 1355 Trans: 11/21/20 1358 [facility] [id number] Interpreted by: NEETA QUINONEZ MD Electronically signed by: Departure Impression Primary Impression: Right-sided chest wall pain Additional Impressions: Non-cardiac chest pain Tobacco abuse Disposition: HOME, SELF-CARE Condition: Stable Departure-Patient Inst. Decision time for Depature: 15:17 Referrals: [facility] (PCP) Primary Care Physician GEO THAPA APRN (Family) Primary Care Physician YARITZA LOPEZ MD Patient Instructions: Drugs to Help You Stop Using Tobacco, Chest Pain That Is Not Caused by the Heart (DC), Costochondritis (DC) Add. Discharge Instructions: Try alternating hot and cold packs to the chest wall to help with your pain. Ice 15-20 minutes then in 2-3 hours you could do a hot pack or heating pack to chest wall. Take the medicine for muscle spasm and short course of steroid to help with inflammation. check with clinic this week for continued problems or if not improving. All discharge instructions reviewed with patient and/or family. Voiced understanding. Scripts Baclofen (Baclofen) 5 Mg Tablet 5 MG PO BID PRN for chest wall pain/muscle spasm for 3 Days, #6 TAB 0 Refills Prov: OMAR BACH MD 11/21/20 Prednisone (Prednisone) 20 Mg Tab 40 MG PO DAILY for chest wall inflammation for 3 Days, #6 TAB 0 Refills Prov: OMAR BACH MD 11/21/20 Images Torso/Trunk 1 - Tenderness (reproducible chest wall tenderness with palpation) OMAR BACH MD Nov 21, 2020 13:55
[2020-11-21 13:56] LABS: ALANINE AMINOTRANSFERASE 11 U/L (0-55); ALBUMIN 4.3 GM/DL (3.2-4.5); ALKALINE PHOSPHATASE 68 U/L (40-136); BILIRUBIN,TOTAL 0.2 MG/DL (0.1-1.0); BUN/CREATININE RATIO 22; CALCIUM 9.5 MG/DL (8.5-10.1); CARBON DIOXIDE 26 MMOL/L (21-32); CHLORIDE 102 MMOL/L (98-107); CREATININE SERUM 0.76 MG/DL (0.60-1.30); GFR ESTIMATED > 60; GLUCOSE 121 MG/DL (70-105); LIPASE 61 U/L (8-78); MAGNESIUM 1.7 MG/DL (1.6-2.4); POTASSIUM 4.3 MMOL/L (3.6-5.0); TOTAL PROTEIN 7.1 GM/DL (6.4-8.2)
--- NOTE | 2020-11-21 13:59 | Diagnostic Imaging Report ---
Indication: Chest pain. Comparison made with prior CT chest 08/03/2020 and prior radiographs of the chest from 06/23/2020. Findings: There are some chronic interstitial changes within the lungs. There is flattening of the diaphragms suggesting air trapping. There is no new infiltrate or consolidation evident. There are no findings of an effusion or pneumothorax. Heart size prominent. The central pulmonary vascularity appears appropriate. IMPRESSION: Stable radiographic appearance of the chest. There are chronic pulmonary interstitial changes which are not appreciably changed from June 2020. There is no new infiltrate or consolidation evident. There is stable enlargement of the cardiac silhouette but pulmonary vascularity currently appears appropriate without evidence of edema or failure. Dictated by: Dictated on workstation # [id number]
[2020-11-21] MEDS ORDERED: BACL5TAB PO (15:17)
[2020-11-21] MEDS ORDERED: PRD20T PO (15:17)
[2020-11-21 15:33] VITALS: BP 156/64
== END 2020-11-21 15:34 | disposition home or self-care (01) ==
LOC: EDUNIT# 13:17 → ER FS 13:19
DX: R07.89 Other chest pain (principal); F17.200 Nicotine dependence, unspecified, uncomplicated; I10 Essential (primary) hypertension; E78.00 Pure hypercholesterolemia, unspecified; E11.9 Type 2 diabetes mellitus without complications; F17.210 Nicotine dependence, cigarettes, uncomplicated; Z88.2 Allergy status to sulfonamides; Z88.8 Allergy status to other drugs, medicaments and biological substances; Z86.73 Personal history of transient ischemic attack (TIA), and cerebral infarction without residual deficits; Z95.9 Presence of cardiac and vascular implant and graft, unspecified; Z79.52 Long term (current) use of systemic steroids; Z79.82 Long term (current) use of aspirin; Z79.84 Long term (current) use of oral hypoglycemic drugs
CPT/HCPCS: 36415; 71045; 80053; 83690; 83735; 83880; 84484; 85025; 85610; 85730; 93005; 93041

== ENCOUNTER 2021-03-18 13:54 | Observation (INO) | payer MEDICARE ==
[~2021-03-18] VITALS: Ht 175 cm; Wt 110.1 kg
[~2021-03-18 13:54] MED LIST changes: +BACL5TAB PO; +PRD20T PO
[2021-03-18 14:19] VITALS: BP 150/74
--- NOTE | 2021-03-18 14:32 | ED Neurological Problem ---
General Chief Complaint: Neuro-Stroke Like Symptoms Stated Complaint: POSSIBLE STROKE Source: patient Exam Limitations: no limitations History of Present Illness Date Seen by Provider: Mar 18, 2021 Time Seen by Provider: 14:20 Initial Comments Brooke is a 70-year-old female who presents to the emergency room today with a chief complaint of left lower extremity weakness and subjective decrease in sensation. Patient states last night at around 4 AM she got up to go to the bathroom and noticed that her left leg was not working. She is having a hard time bearing weight on her left lower extremity. She states she feels dizzy and like she wants to fall. She states the dizziness is not room spinning and just off balance. She denies headache, visual changes, speech or swallowing difficulties. No decreased strength or sensation in her left upper extremity. Patient tells me that she has had a history of 2 or 3 prior strokes but cannot recall what deficit she had. She does have a history of diabetes, hypertension high cholesterol. She does continue to smoke cigarettes. She takes an aspirin daily. Patient denies any recent illnesses. She states that she is vaccinated for Covid. No sick contacts. No chest pain or shortness of breath. No history of coronary artery disease but her merchandising representative is Dr. Murrieta. All other review of systems reviewed and negative except as stated. Timing/Duration: other (10 to 12 hours) Severity: moderate Associated Symptoms: numbness in legs/feet (Left leg), trouble walking, weakness (Left leg) Allergies and Home Medications Allergies Coded Allergies: Sulfa (Sulfonamide Antibiotics) (Verified Allergy, Unknown, 05/01/19) aspirin (Verified Allergy, Unknown, 05/01/19) Home Medications Aspirin 81 Mg Tablet., 81 MG PO DAILY, (Reported) Baclofen 5 Mg Tablet, 5 MG PO BID PRN for chest wall pain/muscle spasm Prescribed by: OMAR BACH on 11/21/20 1517 Biotin 5,000 Mcg Tab.rapdis, 5,000 MCG PO HS, (Reported) Cholecalciferol (Vitamin D3) 25 Mcg Capsule, 25 MCG PO HS, (Reported) Citalopram Hydrobromide 40 Mg Tablet, 40 MG PO HS, (Reported) Cyanocobalamin (Vitamin B-12) 1,000 Mcg Capsule, 1,000 MCG PO HS, (Reported) Estradiol 1 Mg Tablet, 1 MG PO HS, (Reported) Fexofenadine HCl 60 Mg Tablet, 60 MG PO HS, (Reported) Levothyroxine Sodium 125 Mcg Tablet, 125 MCG PO DAILY, (Reported) TAKES 1 HOUR BEFORE EATING BREAKFAST Meloxicam 15 Mg Tablet, 15 MG PO HS, (Reported) Metformin HCl 500 Mg Tablet, 500 MG PO BID, (Reported) Metoprolol Tartrate 25 Mg Tablet, 25 MG PO DAILY, (Reported) Multivit-Min/FA/Lycopene/Lut 1 Each Tablet, 1 EACH PO DAILY, (Reported) Prednisone 20 Mg Tab, 40 MG PO DAILY Prescribed by: OMAR BACH on 11/21/20 1517 Primidone 50 Mg Tablet, 50 MG PO HS, (Reported) Rosuvastatin Calcium 20 Mg Tablet, 20 MG PO HS, (Reported) [Complete Keto] , 1 EA PO HS, (Reported) Patient Home Medication List Home Medication List Reviewed: Yes Review of Systems Review of Systems Constitutional: see HPI Eyes: No Symptoms Reported Ears, Nose, Mouth, Throat: no symptoms reported Respiratory: no symptoms reported Cardiovascular: no symptoms reported Gastrointestinal: no symptoms reported Genitourinary: no symptoms reported Musculoskeletal: no symptoms reported Skin: no symptoms reported Psychiatric/Neurological: Denies Headache; Numbness, Weakness (Left lower extremity) All Other Systems Reviewed Negative Unless Noted: Yes Past Ocukqaf-Ktlrlo-Jxqvvb Hx Immunizations Up To Date Tetanus Booster (TDap): Unknown Seasonal Allergies Seasonal Allergies: No Past Medical History Surgeries: Yes (hernia repair; ) Hysterectomy, Orthopedic Respiratory: No Cardiac: Yes High Cholesterol, Hypertension Neurological: Yes Stroke Genitourinary: No Gastrointestinal: No Musculoskeletal: No Endocrine: Yes Diabetes, Non-Insulin dep HEENT: No Cancer: No Psychosocial: No Integumentary: No Physical Exam Vital Signs Vital Signs - First Documented 03/18/21 14:19 Pulse 53 Resp 16 B/P (MAP) 150/74 Pulse Ox 93 O2 Delivery Room Air Capillary Refill : Height, Weight, BMI Height: 5'8.00" Weight: 236lbs. oz. 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, no motor/sensory deficits, alert, normal mood/affect, oriented x 3 Crainal Nerves: normal hearing, normal speech, PERRL Coordination/Gait: normal finger to nose, normal gait Motor/Sensory: no motor deficit, no sensory deficit, no pronator drift, negative Babinski's sign, other (NIH equals 0) Skin: normal color, warm/dry Progress/Results/Core Measures Results/Orders Lab Results Laboratory Tests Test 03/18/21 14:22 03/18/21 14:56 03/18/21 15:04 Range/Units White Blood Count 8.3 4.3-11.0 10^3/uL Red Blood Count 4.27 3.80-5.11 10^6/uL Hemoglobin 13.8 11.5-16.0 g/dL Hematocrit 41 35-52 % Mean Corpuscular Volume 97 80-99 fL Mean Corpuscular Hemoglobin 32 25-34 pg Mean Corpuscular Hemoglobin Concent 33 32-36 g/dL Red Cell Distribution Width 12.8 10.0-14.5 % Platelet Count 237 130-400 10^3/uL Mean Platelet Volume 9.2 9.0-12.2 fL Immature Granulocyte % (Auto) 0 % Neutrophils (%) (Auto) 61 42-75 % Lymphocytes (%) (Auto) 26 12-44 % Monocytes (%) (Auto) 9 0-12 % Eosinophils (%) (Auto) 3 0-10 % Basophils (%) (Auto) 1 0-10 % Neutrophils # (Auto) 5.0 1.8-7.8 10^3/uL Lymphocytes # (Auto) 2.2 1.0-4.0 10^3/uL Monocytes # (Auto) 0.7 0.0-1.0 10^3/uL Eosinophils # (Auto) 0.3 0.0-0.3 10^3/uL Basophils # (Auto) 0.1 0.0-0.1 10^3/uL Immature Granulocyte # (Auto) 0.0 0.0-0.1 10^3/uL Prothrombin Time 13.1 12.2-14.7 SEC INR Comment 1.0 0.8-1.4 Activated Partial Thromboplast Time 31 24-35 SEC D-Dimer 0.79 H 0.00-0.49 UG/ML Sodium Level 139 135-145 MMOL/L Potassium Level 4.4 3.6-5.0 MMOL/L Chloride Level 103 98-107 MMOL/L Carbon Dioxide Level 24 21-32 MMOL/L Anion Gap 12 5-14 MMOL/L Blood Urea Nitrogen 17 7-18 MG/DL Creatinine 0.85 0.60-1.30 MG/DL Estimat Glomerular Filtration Rate > 60 BUN/Creatinine Ratio 20 Glucose Level 98 70-105 MG/DL Calcium Level 9.5 8.5-10.1 MG/DL Corrected Calcium 9.3 8.5-10.1 MG/DL Total Bilirubin 0.4 0.1-1.0 MG/DL Aspartate Amino Transf (AST/SGOT) 26 5-34 U/L Alanine Aminotransferase (ALT/SGPT) 30 0-55 U/L Alkaline Phosphatase 71 40-136 U/L Troponin I 0.104 H <0.028 NG/ML Total Protein 7.2 6.4-8.2 GM/DL Albumin 4.2 3.2-4.5 GM/DL Urine Color YELLOW Urine Clarity CLEAR Urine pH 6.0 5-9 Urine Specific [place] 1.025 H 1.016-1.022 Urine Protein NEGATIVE NEGATIVE Urine Glucose (UA) NEGATIVE NEGATIVE Urine Ketones NEGATIVE NEGATIVE Urine Nitrite NEGATIVE NEGATIVE Urine Bilirubin NEGATIVE NEGATIVE Urine Urobilinogen 0.2 < = 1.0 MG/DL Urine Leukocyte Esterase NEGATIVE NEGATIVE Urine RBC (Auto) NEGATIVE NEGATIVE Urine RBC NONE /HPF Urine WBC NONE /HPF Urine Squamous Epithelial Cells RARE /HPF Urine Crystals NONE /LPF Urine Bacteria TRACE /HPF Urine Casts NONE /LPF Urine Mucus NEGATIVE /LPF Urine Culture Indicated NO Glucometer 92 70-110 MG/DL My Orders Orders - MERVIN FULTON MD Cbc With Automated Diff (03/18/21 14:29) Protime With Inr (03/18/21 14:29) Partial Thromboplastin Time (03/18/21 14:29) Comprehensive Metabolic Panel (03/18/21 14:29) Fibrin Degradation Products (03/18/21 14:29) Troponin I (03/18/21 14:29) Ua Culture If Indicated (03/18/21 14:29) Chest 1 View, Ap/Pa Only (03/18/21 14:29) Ekg Tracing (03/18/21 14:29) Nothing By Mouth (03/18/21 Lunch) Accucheck Stat ONCE (03/18/21 14:29) Ed Iv/Invasive Line Start (03/18/21 14:29) Ed Iv/Invasive Line Start (03/18/21 14:29) Vital Signs Stroke Patient Q15M (03/18/21 14:29) Ct Head Wo-R/O Stroke (03/18/21 14:29) O2 (03/18/21 14:29) Intake & Output 06,14,22 (03/18/21 14:29) Monitor-Rhythm Ecg Trace Only (03/18/21 14:29) Dysphagia Screening Tool (03/18/21 14:29) Post Thrombolytic Adminstratio (03/18/21 14:29) Lipid Panel (03/19/21 06:00) Us Venous Lower Ext Lt (03/18/21 15:54) Vital Signs/I&O 03/18/21 03/18/21 03/18/21 14:19 14:19 14:21 Pulse 53 53 Resp 16 16 B/P (MAP) 150/74 150/74 (99) Pulse Ox 93 94 94 O2 Delivery Room Air Room Air Progress Progress Note : Time: 15:41 Progress Note Reevaluated patient. She still feels like her left leg is heavy. Her troponin is noted to be detectable as is her D-dimer. Patient again states no chest pain or shortness of breath. Repeat EKG was done as nursing felt like she might be in atrial fibrillation on telemetry. She is still in normal sinus rhythm. 1645 Advised by medical imaging technologist than DVT study was negative Initial ECG Impression Date: Mar 18, 2021 Initial ECG Impression Time: 15:00 Initial ECG Rate: 52 Initial ECG Rhythm: Normal Sinus Initial ECG Impression: Normal Comment Q waves inferiorly lead III and aVF, no ectopy no ST segment changes Diagnostic Imaging Diagonstic Imaging: Xray Comments [facility] [place], [place] NAME: [facility] REC#: [id number] PT STATUS: REG ER : 1950 PHYSICIAN: MERVIN FULTON MD ADMIT DATE: 03/18/21/ER Draft Date of Exam:03/18/21 CT HEAD WO-R/O STROKE PROCEDURE: CT head w/o r/o stroke. TECHNIQUE: Multiple contiguous axial images were obtained through the brain without the use of intravenous contrast. Auto Exposure Controls were utilized during the CT exam to meet ALARA standards for radiation dose reduction. INDICATION: Weakness. COMPARISON: Prior head CT from 05/01/2019. Ventricular size and sulcal pattern are stable. There are extensive periventricular white matter changes consistent with chronic microvascular ischemia. There are old infarcts in the lindsay radiata, bilaterally, as well as the right caudate. No acute intra-axial or extra-axial hemorrhage is detected. Cisterns are patent. Visualized nasal sinuses are clear. IMPRESSION: Chronic changes. No acute intracranial process is detected. Dictated on workstation # [id number] Dict: 03/18/21 1447 Trans: 03/18/21 1456 PJE [id number] Interpreted by: BOBBY WALLER MD Electronically signed by: NAME: BROOKE [facility] REC#: [id number] PT STATUS: REG ER : 1950 PHYSICIAN: MERVIN FULTON MD ADMIT DATE: 03/18/21/ER Draft Date of Exam:03/18/21 CHEST 1 VIEW, AP/PA ONLY Indication: Weakness in the left foot. Time of exam: 3:23 PM Correlation is made with prior chest from 11/21/2020. The heart size is normal. The pulmonary vascularity is unremarkable. The lungs are clear. No infiltrate, effusion or pneumothorax is detected. Impression: No acute cardiopulmonary process is detected. Dictated on workstation # [id number] Dict: 03/18/21 1534 Trans: 03/18/21 1535 CVB [id number] Interpreted by: BOBBY WALLER MD Electronically signed by: [facility] [place], [place] NAME: BROOKE [facility] REC#: [id number] PT STATUS: REG ER : 1950 PHYSICIAN: MERVIN FULTON MD ADMIT DATE: 03/18/21/ER Signed Date of Exam:03/18/21 US VENOUS LOWER EXT LT EXAMINATION: US Lower Extremity Venous Duplex Left. TECHNIQUE: Multiple real-time grayscale images were obtained over the left lower extremity in various projections. Additional spectral analysis and color Doppler duplex images were also obtained. HISTORY: Swelling. COMPARISON: None available. FINDINGS: The left common femoral vein, deep femoral vein, superficial femoral vein and popliteal vein are patent with normal iraheta scale and doppler appearance. There is normal respiratory variation and augmentation. IMPRESSION: 1. No DVT of the left lower extremity. Dictated by: Dictated on workstation # [id number] Dict: 03/18/21 1651 Trans: 03/18/21 1653 [facility] [id number] Interpreted by: KATLIN PIERCE MD Electronically signed by: KATLIN PIERCE MD 03/18/21 1653 Departure Communication (Admissions) Time/Spoke to Admitting Phy: 16:[address] Horton Time/Spoke to Consulting Phy: 16:[address] Barakat Impression Primary Impression: Left leg weakness Additional Impression: Elevated troponin Disposition: ADMITTED INPATIENT Condition: Stable Admissions Decision to Admit Reason: Admit from ER (General) Decision to Admit/Date: Mar 18, 2021 Time/Decision to Admit Time: 16:00 Departure-Patient Inst. Referrals: [facility] (PCP) Primary Care Physician GEO THAPA APRN (Family) Primary Care Physician MERVIN FULTON MD Mar 18, 2021 14:32
[2021-03-18 14:37] LABS: BASOPHILS # (AUTO) 0.1 10^3/uL (0.0-0.1); BASOPHILS % (AUTO) 1 % (0-10); EOSINOPHILS # (AUTO) 0.3 10^3/uL (0.0-0.3); EOSINOPHILS % (AUTO) 3 % (0-10); HEMATOCRIT 41 % (35-52); HEMOGLOBIN 13.8 g/dL (11.5-16.0); LYMPHOCYTES # (AUTO) 2.2 10^3/uL (1.0-4.0); LYMPHOCYTES % (AUTO) 26 % (12-44); MEAN CORPUSCULAR HEMOGLOBIN 32 pg (25-34); MEAN CORPUSCULAR HGB CONC 33 g/dL (32-36); MEAN CORPUSCULAR VOLUME 97 fL (80-99); MEAN PLATELET VOLUME 9.2 fL (9.0-12.2); MONOCYTES # (AUTO) 0.7 10^3/uL (0.0-1.0); MONOCYTES % (AUTO) 9 % (0-12); NEUTROPHILS % (AUTO) 61 % (42-75); PLATELET COUNT 237 10^3/uL (130-400); WHITE BLOOD COUNT 8.3 10^3/uL (4.3-11.0)
[2021-03-18 14:44] LABS: ALBUMIN 4.2 GM/DL (3.2-4.5); CHLORIDE 103 MMOL/L (98-107); POTASSIUM 4.4 MMOL/L (3.6-5.0); SODIUM 139 MMOL/L (135-145)
[2021-03-18 14:45] LABS: CALCIUM 9.5 MG/DL (8.5-10.1); FIBRIN DEGRADATION PRODUCTS 0.79 UG/ML (0.00-0.49); PROTHROMBIN TIME PATIENT 13.1 SEC (12.2-14.7)
[2021-03-18 14:46] LABS: GLUCOSE 98 MG/DL (70-105)
[2021-03-18 14:47] LABS: TOTAL PROTEIN 7.2 GM/DL (6.4-8.2)
[2021-03-18 14:48] LABS: BILIRUBIN,TOTAL 0.4 MG/DL (0.1-1.0); CARBON DIOXIDE 24 MMOL/L (21-32)
[2021-03-18 14:50] LABS: ALKALINE PHOSPHATASE 71 U/L (40-136); CREATININE SERUM 0.85 MG/DL (0.60-1.30); GFR ESTIMATED > 60
[2021-03-18 14:51] LABS: BUN/CREATININE RATIO 20
[2021-03-18 14:53] LABS: ALANINE AMINOTRANSFERASE 30 U/L (0-55)
--- NOTE | 2021-03-18 14:56 | Diagnostic Imaging Report ---
PROCEDURE: CT head w/o r/o stroke. TECHNIQUE: Multiple contiguous axial images were obtained through the brain without the use of intravenous contrast. Auto Exposure Controls were utilized during the CT exam to meet ALARA standards for radiation dose reduction. INDICATION: Weakness. COMPARISON: Prior head CT from 05/01/2019. Ventricular size and sulcal pattern are stable. There are extensive periventricular white matter changes consistent with chronic microvascular ischemia. There are old infarcts in the lindsay radiata, bilaterally, as well as the right caudate. No acute intra-axial or extra-axial hemorrhage is detected. Cisterns are patent. Visualized nasal sinuses are clear. IMPRESSION: Chronic changes. No acute intracranial process is detected. Dictated by: Dictated on workstation # [id number]
[2021-03-18 15:08] LABS: BILIRUBIN,URINE NEGATIVE (NEGATIVE); CLARITY,URINE CLEAR; COLOR,URINE YELLOW; GLUCOSE, URINE (UA) NEGATIVE (NEGATIVE); KETONES,URINE NEGATIVE (NEGATIVE); LEUKOCYTE ESTERASE ,URINE NEGATIVE (NEGATIVE); NITRITE,URINE NEGATIVE (NEGATIVE); PROTEIN,URINE NEGATIVE (NEGATIVE)
[2021-03-18 15:24] LABS: BACTERIA,URINE TRACE /HPF; SQUAMOUS EPITHELIAL CELL,UR RARE /HPF
--- NOTE | 2021-03-18 15:35 | Diagnostic Imaging Report ---
Indication: Weakness in the left foot. Time of exam: 3:23 PM Correlation is made with prior chest from 11/21/2020. The heart size is normal. The pulmonary vascularity is unremarkable. The lungs are clear. No infiltrate, effusion or pneumothorax is detected. Impression: No acute cardiopulmonary process is detected. Dictated by: Dictated on workstation # [id number]
--- NOTE | 2021-03-18 16:32 | Consultation-Cardiology ---
HPI-Cardiology Cardiology Consultation: Date of Consultation 03/18/21 Date of Admission 03/18/2021 Attending Physician Admitting Physician [place] Consulting Physician YOUSIF NATION JR, MD HPI: Time Seen by a Provider: 16:29 Chief Complaint: Reason for consultation: Elevated troponin in the setting of known coronary artery disease. I had the pleasure of seeing Brooke in the emergency room this afternoon. She has a history of coronary artery disease with a chronic total occlusion of the right coronary artery identified at cardiac catheterization in June 2020, a previous cerebrovascular accident from which she improved/recovered, hypertension, hyperlipidemia, type 2 diabetes mellitus, obstructive sleep apnea, cigarette smoking, and obesity among a few other less clinically significant issues. She was in her usual state of health until this morning when she went to get up out of bed and her left leg was extremely weak. She tried to walk into the bathroom but due to the leg weakness, she ended up falling on the floor in the bathroom. She laid on the floor for almost 2 hours. She was banging on the bathtub trying to get the attention of her sister who is in town visiting the patient. She eventually got the attention of her sister who then contacted the patient's daughter. By that time, her leg weakness had started to improve but had not completely returned to normal. Therefore, her sister and daughter helped her get into the car and they came to the emergency room for further evaluation. She is in the emergency room being evaluated for a stroke. During her laboratory testing, a troponin was drawn which was elevated. As such, a cardiology consultation was requested. When I spoke to the patient, she denied any chest discomfort. She states she has chronic dyspnea on exertion related to her cigarette smoking. There has been no recent change in her shortness of breath. Sometimes when she stands up quickly, she will get lightheaded. How ever, she denies any syncope. She denies any paroxysmal nocturnal dyspnea, orthopnea, palpitations, or lower extremity edema. Review of Systems-Cardiology Review of Systems Other comments Review of 10 organ systems is as per the history of present illness, otherwise negative. All Other Systems Reviewed Negative Unless Noted: Yes NHB-Dmwfjv-Grbkuk Hx Patient Social History 2nd Hand Smoke Exposure: No Have you traveled recently?: No Immunizations Up To Date Tetanus Booster (TDap): Unknown Past Medical History PMH As described under Assessment. Family Medical History Family Medical History: She does not report any family history of premature coronary artery disease. Allergies and Home Medications Allergies Coded Allergies: Sulfa (Sulfonamide Antibiotics) (Verified Allergy, Unknown, 05/01/19) aspirin (Verified Allergy, Unknown, 05/01/19) Home Medications Aspirin 81 Mg Tablet.dr, 81 MG PO DAILY, (Reported) Baclofen 5 Mg Tablet, 5 MG PO BID PRN for chest wall pain/muscle spasm Prescribed by: OMAR BACH on 11/21/201516 Biotin 5,000 Mcg Tab.rapdis, 5,000 MCG PO HS, (Reported) Cholecalciferol (Vitamin D3) 25 Mcg Capsule, 25 MCG PO HS, (Reported) Citalopram Hydrobromide 40 Mg Tablet, 40 MG PO HS, (Reported) Cyanocobalamin (Vitamin B-12) 1,000 Mcg Capsule, 1,000 MCG PO HS, (Reported) Estradiol 1 Mg Tablet, 1 MG PO HS, (Reported) Fexofenadine HCl 60 Mg Tablet, 60 MG PO HS, (Reported) Levothyroxine Sodium 125 Mcg Tablet, 125 MCG PO DAILY, (Reported) TAKES 1 HOUR BEFORE EATING BREAKFAST Meloxicam 15 Mg Tablet, 15 MG PO HS, (Reported) Metformin HCl 500 Mg Tablet, 500 MG PO BID, (Reported) Metoprolol Tartrate 25 Mg Tablet, 25 MG PO DAILY, (Reported) Multivit-Min/FA/Lycopene/Lut 1 Each Tablet, 1 EACH PO DAILY, (Reported) Prednisone 20 Mg Tab, 40 MG PO DAILY Prescribed by: OMAR CRUZRT on 11/21/201516 Primidone 50 Mg Tablet, 50 MG PO HS, (Reported) Rosuvastatin Calcium 20 Mg Tablet, 20 MG PO HS, (Reported) [Complete Keto] , 1 EA PO HS, (Reported) Patient Home Medication List Home Medication List Reviewed: Yes Exam Vital Signs Vital Signs Date Time Temp Pulse Resp B/P (MAP) Pulse Ox O2 Delivery O2 Flow Rate FiO2 03/18/21 14:21 53 16 150/74 (99) 94 Room Air Physical Exam General: Alert. No acute distress. Well nourished and appears stated age.She is obese. Eye: Extraocular movements are intact. Conjunctivae are clear. There are no xanthelasma. HENT: Normocephalic. Atraumatic. Carotid pulsations 2/2 without bruits. Neck: Jugular venous pressure does not appear elevated. No thyromegaly appreciated. Respiratory: Lungs Have scattered inspiratory wheezes. Respirations are non-labored. Breath sounds are equal. Symmetrical chest wall expansion. Cardiovascular: Normal rate. Regular rhythm. No murmur. No gallop. Point of maximal impulse is not appear displaced. Good pulses equal in all extremities. No edema. Gastrointestinal: Soft. Normal bowel sounds. Skin: Skin turgor is normal. There is no pallor. Musculoskeletal: No kyphosis or scoliosis appreciated. Neurologic: Alert and oriented to person, place, time. Cranial nerves 3-12 appear grossly intact. The patient has good motor tone strength in the upper extremities bilaterally. Her left leg is weak. Her right leg has good motor tone and strength. Psychiatric: Cooperative. Appropriate mood & affect. Labs Laboratory Tests Test 03/18/21 14:22 03/18/21 14:56 03/18/21 15:04 Range/Units White Blood Count 8.3 4.3-11.0 10^3/uL Red Blood Count 4.27 3.80-5.11 10^6/uL Hemoglobin 13.8 11.5-16.0 g/dL Hematocrit 41 35-52 % Mean Corpuscular Volume 97 80-99 fL Mean Corpuscular Hemoglobin 32 25-34 pg Mean Corpuscular Hemoglobin Concent 33 32-36 g/dL Red Cell Distribution Width 12.8 10.0-14.5 % Platelet Count 237 130-400 10^3/uL Mean Platelet Volume 9.2 9.0-12.2 fL Immature Granulocyte % (Auto) 0 % Neutrophils (%) (Auto) 61 42-75 % Lymphocytes (%) (Auto) 26 12-44 % Monocytes (%) (Auto) 9 0-12 % Eosinophils (%) (Auto) 3 0-10 % Basophils (%) (Auto) 1 0-10 % Neutrophils # (Auto) 5.0 1.8-7.8 10^3/uL Lymphocytes # (Auto) 2.2 1.0-4.0 10^3/uL Monocytes # (Auto) 0.7 0.0-1.0 10^3/uL Eosinophils # (Auto) 0.3 0.0-0.3 10^3/uL Basophils # (Auto) 0.1 0.0-0.1 10^3/uL Immature Granulocyte # (Auto) 0.0 0.0-0.1 10^3/uL Prothrombin Time 13.1 12.2-14.7 SEC INR Comment 1.0 0.8-1.4 Activated Partial Thromboplast Time 31 24-35 SEC D-Dimer 0.79 H 0.00-0.49 UG/ML Sodium Level 139 135-145 MMOL/L Potassium Level 4.4 3.6-5.0 MMOL/L Chloride Level 103 98-107 MMOL/L Carbon Dioxide Level 24 21-32 MMOL/L Anion Gap 12 5-14 MMOL/L Blood Urea Nitrogen 17 7-18 MG/DL Creatinine 0.85 0.60-1.30 MG/DL Estimat Glomerular Filtration Rate > 60 BUN/Creatinine Ratio 20 Glucose Level 98 70-105 MG/DL Calcium Level 9.5 8.5-10.1 MG/DL Corrected Calcium 9.3 8.5-10.1 MG/DL Total Bilirubin 0.4 0.1-1.0 MG/DL Aspartate Amino Transf (AST/SGOT) 26 5-34 U/L Alanine Aminotransferase (ALT/SGPT) 30 0-55 U/L Alkaline Phosphatase 71 40-136 U/L Troponin I 0.104 H <0.028 NG/ML Total Protein 7.2 6.4-8.2 GM/DL Albumin 4.2 3.2-4.5 GM/DL Urine Color YELLOW Urine Clarity CLEAR Urine pH 6.0 5-9 Urine Specific [place] 1.025 H 1.016-1.022 Urine Protein NEGATIVE NEGATIVE Urine Glucose (UA) NEGATIVE NEGATIVE Urine Ketones NEGATIVE NEGATIVE Urine Nitrite NEGATIVE NEGATIVE Urine Bilirubin NEGATIVE NEGATIVE Urine Urobilinogen 0.2 < = 1.0 MG/DL Urine Leukocyte Esterase NEGATIVE NEGATIVE Urine RBC (Auto) NEGATIVE NEGATIVE Urine RBC NONE /HPF Urine WBC NONE /HPF Urine Squamous Epithelial Cells RARE /HPF Urine Crystals NONE /LPF Urine Bacteria TRACE /HPF Urine Casts NONE /LPF Urine Mucus NEGATIVE /LPF Urine Culture Indicated NO Glucometer 92 70-110 MG/DL Radiology CARDIAC CATHETERIZATION (06/23/2020): 1. 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 Tortuous LAD with mild disease nonobstructive disease 3. Prominent left ventricle with akinesia of the inferior wall, ejection fraction 40% ECHOCARDIOGRAM (06/08/2020): 1. Normal left ventricular chamber size, wall thickness and systolic function with an estimated ejection fraction of 50-55%. 2. Normal left ventricular diastolic parameters. 3. The estimated pulmonary artery pressure is 30-35 mmHg. 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 No acute ST changes. Diagnosis/Problems Diagnosis/Problems (1) Troponin level elevated Assessment & Plan: She did not report any chest discomfort to me. 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 This may be a type II non-ST elevation myocardial infarction related to her possible stroke and also laying on the floor for 2 hours. I recommend she continue on the present guideline directed medical therapy and obtain serial troponins. At this point in time, I do not see any indication for a cardiac catheterization. (2) Coronary artery disease without angina pectoris Assessment & Plan: As above, she does not appear to be having any unstable angina at this time. I recommend she continue on her regular outpatient guideline directed medical therapy with aspirin, beta-ethel, and statin medication. Given her cardiac history, a previous stroke, and possibly now with a new stroke, I would recommend she stop her estrogen. (3) Acute left-sided weakness Assessment & Plan: Her head CT did not show any acute changes. She will likely need an MRI for further evaluation. We may also want to consider a carotid ultrasound. Depending upon the results of the MRI, she may need prolonged screening for atrial fibrillation. (4) Essential hypertension Assessment & Plan: Resume her outpatient antihypertensive medication and follow her blood pressures closely. (5) Mixed hyperlipidemia Assessment & Plan: Continue statin medication. If she does not fact have an acute stroke, we may need to intensify her antilipemic therapy. (6) Cigarette smoker Assessment & Plan: Smoking cessation was strongly encouraged to the patient. YOUSIF NATION JR, MD Mar 18, 2021 16:32
--- NOTE | 2021-03-18 16:53 | Diagnostic Imaging Report ---
EXAMINATION: US Lower Extremity Venous Duplex Left. TECHNIQUE: Multiple real-time grayscale images were obtained over the left lower extremity in various projections. Additional spectral analysis and color Doppler duplex images were also obtained. HISTORY: Swelling. COMPARISON: None available. FINDINGS: The left common femoral vein, deep femoral vein, superficial femoral vein and popliteal vein are patent with normal iraheta scale and doppler appearance. There is normal respiratory variation and augmentation. IMPRESSION: 1. No DVT of the left lower extremity. Dictated by: Dictated on workstation # [id number]
[2021-03-18] MEDS ORDERED: ONDANSETRON 4 MG (ZOFRAN) ORAL DISSOLVE TAB PO PRN (22:00)
[2021-03-18] MEDS ORDERED: polyethylene glycoL POWDER 17 GM (MIRALAX) PACK PO PRN (22:00)
[2021-03-18] MEDS ORDERED: MELATONIN 3 MG TABLET PO PRN (22:00)
[2021-03-18] MEDS ORDERED: ANTACID SUSP 30 ML UDC (MYLANTA) PO PRN (22:00)
[2021-03-18] MEDS ORDERED: ONDANSETRON 4 MG/2 ML (SDV) Z0FRAN IV PRN (22:00)
[2021-03-18] MEDS ORDERED: ACETAMINOPHEN 325 MG TABLET PO PRN (22:00)
[2021-03-18] MEDS: ENOXAPARIN 40 MG/0.4 ML (LOVENOX) SYR SC SCH (22:30)
[2021-03-18 23:54] VITALS: BP 150/74
[2021-03-19] MEDS ORDERED: RT-ALBUTEROL/IPRATROPIUM 3 ML (DUONEB) VIAL INH PRN (00:15)
--- NOTE | 2021-03-19 10:54 | Occupational Therapy Eval ---
OT Evaluation-General/PLF Medical Diagnosis Admission Date Mar 18, 2021 at 15:56 Medical Diagnosis: Left LE weakness, Decreased sensation LE Onset Date: Mar 18, 2021 Therapy Diagnosis Therapy Diagnosis: Decreased ADL skills Height/Weight Height (Feet): 5 Height (Inches): 8.00 Weight (Pounds): 236 Precautions Precautions/Isolations: Fall Prevention, Standard Precautions Weight Bear Status Weight Bearing Restriction: Weight Bearing/Tolerated Referral Physician: Dr. Horton Referral Reason: Activity Tolerance, Self Care, Evaluation/Treatment, Strengthening/ROM Medical History Pertinent Medical History: CAD, CVA, DM, HTN Additional Medical History Apnea Current History Pt. states that she has been having multiple falls at home. She states that her left LE just "gives out" and she doesn't know why. Pt. can't articulate how long this has been happening, or if it is a specific area, such as her knee, hip, etc. She fell and laid for 2 hours. Reviewed History: Yes Social History Current Living Status: Alone Entry Into Home: Level Entry ADL-Prior Level of Function SCALE: Activities may be completed with or without assistive devices. 6-Rfolvphgqm-lzujinq completes the activity by him/herself with no assistance from a helper. 5-Set-up or Clean-up Assistance-helper sets up or cleans up; patient completes activity. [place] assists only prior to or following the activity. 4-Supervision or Touching Assistance-helper provides verbal cues and/or touching/steadying and/or contact guard assistance as patient completes activ ity. Assistance may be provided throughout the activity or intermittently. 3-Partial/Moderate Assistance-helper does LESS THAN HALF the effort. [place] lifts, holds or supports trunk or limbs, but provides less than half the effort. 2-Substantial/Maximal Assistance-helper does MORE THAN HALF the effort. [place] lifts or holds trunk or limbs and provides more than half the effort. 8-Rpdaqfywr-nmnetx does ALL the effort. Patient does none of the effort to complete the activity. Or, the assistance of 2 or more helpers is required for the patient to complete the activity. If activity was not attempted, code reason: 7-Patient Refused. 9-Not Applicable-not attempted and the patient did not perform the activity before the current illness, exacerbation or injury. 10-Not Attempted due to Environmental Limitations-(lack of equipment, weather restraints, etc.). 88-Not Attempted due to Medical Conditions or Safety Concerns. ADL PLOF Comments Pt. is somewhat poor historian. She states that she lives in [facility] alone. Pt. is unable to state exactly how long she has had issues with her specific situation, or how she got to the hospital. She does report that she is independent with daily skills, and driving. She states that she does not use an assistive device at home. Pt. has difficulty reporting her support system, but does mention her daughter and a sister. A CT scan did not show evidence of CVA. Self Care: Unknown Functional Cognition: Unknown DME/Equipment: Tub/Shower Drive Self: Yes (per pt) OT Current Status Subjective Pt. indicates that she is very thirsty, but nursing states pt. NPO per arboreal scientist. No pain reported. Appearance Pt. in bed. Keeps eyes closed on and off throughout session. Mental Status/Objective Patient Orientation: Person Current Glasses/Contacts: Yes Hand Dominance: Right Upper Extremity ROM WFL Upper Extremity Strength Pt. demonstrates slight increased weakness in left UE more proximal than distal than right, approximately 3/5 left. 4/5 bilateral hand strength. ADL-Treatment Eating (QC): 88 On/Off Footwear (QC): 4 (SBA and increased time to don slipper socks while seated on EOB. Pt. brings feet up to her by turning sideways on bed.) Toileting Hygiene (QC): 2 Other Treatments Pt. supine in bed. Poor historian at times, but able to answer other questions as well. Pt. does report that her memory "isn't good." Transfers supine-sit with min assist. Reports having restless leg syndrome that is uncomfortable. Pt. seems to demonstrate nor report no visual issues or dizziness. PT comes in to assist with balance and transfers due to reported LE weakness in stance during functional assessment. Pt. requires mod/max x 2 for sit-stand at bedside with walker. Pt. does not take steps first time, and only stands approximately 30-45 seconds. States that she has to sit quickly, and sits abruptly on bed. Pt. unable to identify what is wrong, but reports, "I just feel weak." Pt. stands again at walker, and is able to take steps toward HOB with min x 2. Sits again. While sitting, BP taken and is 143/114. OT/PT assist pt. to bed with mod assist and BP taken in supine. It is 165/90. HR is 58 and 02 sats are 96%. Nursing notified immediately. Pt. states that she has to use the bathroom. Due to high BP, pt. placed on bedpan. OT asks if she knew she had to use the bathroom while she was up. She states that she knew before she ever even got up, but forgot. Reported to nursing pts memory and that she would like to stay on bed chavez longer. Pt. with call light and rails up. All needs met. Education OT Patient Education: Correct positioning, Modified ADL techniques, Progress toward Goal/Update tx plan, Purpose of tx/functional activities, Reviewed precautions, Rehab process, Transfer techniques Teaching Recipient: Patient Teaching Methods: Demonstration, Discussion Response to Teaching: Verbalize Understanding, Return Demonstration OT Short Term Goals Short Term Goals Time Frame: Apr 02, 2021 Eatin Oral hygiene: 4 Toileting hygiene: 3 Shower/bathe self: 3 Upper body dressin Lower body dressin Putting on/taking off footwear: 4 OT Casino Surveillance Officer Goals Long-Term Goals Time Frame: Apr 16, 2021 Eating (QC): 6 Oral Hygiene (QC): 6 Toileting Hygiene (QC): 6 Shower/Bathe Self (QC): 4 Upper Body Dressing (QC): 5 Lower Body Dressing (QC): 5 On/Off Footwear (QC): 6 Additional Goals: 1-Demonstrate ADL Tasks, 2-Verbalize Understanding, 3-ImproveStrength/Kris 1=Demonstrate adherence to instructed precautions during ADL tasks. 2=Patient will verbalize/demonstrate understanding of assistive devices/modifications for ADL. 3=Patient will improve strength/tolerance for activity to enable patient to perform ADL's. OT Education/Plan Problem List/Assessment Assessment: Decreased Activ Tolerance, Dependent Transfers, Impaired Bed Mobility, Impaired Cognition, Impaired Funct Balance, Impaired I ADL's, Impaired Self-Care Skills Discharge Recommendations Plan/Recommendations: Continue POC Therapy Discharge Recommendati: Post Acute OT Treatment Plan/Plan of Care Treatment,Training & Education: Yes Patient would benefit from OT for education, treatment and training to promote independence in ADL's, mobility, safety and/or upper extremity function for ADL's. Plan of Care: ADL Retraining, Functional Mobility, UE Funct Exercise/Act Treatment Duration: Apr 16, 2021 Frequency: 5 times per week Estimated Hrs Per Day: .25 hour per day Agreement: Yes Rehab Potential: Fair Time/GCodes Start Time: 09:35 Stop Time: 10:10 Total Time Billed (hr/min): 35 Billed Treatment Time 0125-1065- 1, EVH x 15minutes 1570-3570 FA x 20minutes- Co-treat with PT BROCK BELLA OT Mar 19, 2021 10:54
--- NOTE | 2021-03-19 11:00 | Physical Therapy Evaluation ---
PT Evaluation-General Medical Diagnosis Admission Date Mar 18, 2021 at 15:56 Medical Diagnosis: LEFT LEG WEAKNESS, ELEVATED TROPONIN Onset Date: Mar 18, 2021 Therapy Diagnosis Therapy Diagnosis: LLE weakness Height/Weight Height (Feet): 5 Height (Inches): 8.00 Weight (Pounds): 236 Precautions Precautions/Isolations: Fall Prevention, Standard Precautions Weight Bear Status Full Weight Bearing Full Weight Bearing Referral Physician: Clifford Reason for Referral: Evaluation/Treatment Medical History Pertinent Medical History: CAD, DM, HTN, Smoking Current History Pt presents to ED via personal car, with c/o LLE weakness, fell at home and laid in bathroom x 2 hours prior to getting help up. Social History Home: Single Level Current Living Status: Alone Prior Prior Level of Function SCALE: Activities may be completed with or without assistive devices. 8-Gngacooqcf-qfcjwbm completes the activity by him/herself with no assistance from a helper. 5-Set-up or Clean-up Assistance-helper sets up or cleans up; patient completes activity. [place] assists only prior to or following the activity. 4-Supervision or Touching Assistance-helper provides verbal cues and/or touching/steadying and/or contact guard assistance as patient completes activity. Assistance may be provided throughout the activity or intermittently. 3-Partial/Moderate Assistance-helper does LESS THAN HALF the effort. [place] lifts, holds or supports trunk or limbs, but provides less than half the effort. 2-Substantial/Maximal Assistance-helper does MORE THAN HALF the effort. [place] lifts or holds trunk or limbs and provides more than half the effort. 5-Mjskaljrt-kafoum does ALL the effort. Patient does none of the effort to complete the activity. Or, the assistance of 2 or more helpers is required for the patient to complete the activity. If activity was not attempted, code reason: 7-Patient Refused. 9-Not Applicable-not attempted and the patient did not perform the activity before the current illness, exacerbation or injury. 10-Not Attempted due to Environmental Limitations-(lack of equipment, weather restraints, etc.). 88-Not Attempted due to Medical Conditions or Safety Concerns. Bed Mobility: 6 Transfers (B,C,W/C): 6 Gait: 6 Stairs: 6 Pt is a poor historian, denies any use of AD, unsure of steps into or within the home. Reports she drives. PT Evaluation-Current Subjective Pt presents supine in bed with OT present in the room upon arrival, agreeable to PT evaluation this time. She denies any pain. Pt/Family Goals Following session, pt supine in bed, on bed chavez with call light in reach. RN notified pt on bed chavez at this time. Objective Patient Orientation: Confused ROM/Strength ROM Lower Extremities WFL Strength Lower Extremities Hip Flexion: R: 4+/5 L: 4/5 Knee ext: R: 5/5 L: 4+/5 Ankle DF: R: 5/5 L: 4+/5 Integumentary/Posture Integumentary refer to nursing notes Neuromuscular (Tone, Coordination, Reflexes) grossly intact Sensory Vision: Functional Hearing: Functional Sensation Right Lower Extremit: Intact Sensation Left Lower Extremity: Impaired Transfers Sit to Stand (QC): 3 min-mod A for sit to stand, requires verbal cueing for hand placement.Pt only able to stand approx 20-30s before needing to sit due to LE fatigue. Pt stood at EOB x 2, and able to take small side steps towards head of bed to reposition. Balance Sitting Static: Fair Sitting Dynamic: Fair Treatment After sit to stand and small side steps, BP taken in sitting at EOB: 143/114. Pt placed in supine and reassessed BP: 165/90 and HR 58 bpm. O2 sats remained >95% throughout session Assessment/Needs Pt presents with decreased lower extremity strength, decreased sensation, decreased activity tolerance, and decreased safety awareness which impact her overall functional mobility. Previous mentioned limitations increase pts risk of falls. Pt would benefit from skilled PT to address pervious mentioned limitations and ensure safety upon DC from hospital. Rehab Potential: Fair PT Short Term Goals Short Term Goals Time Frame: Apr 02, 2021 Roll Left & Right: 6 Sit to lyin Lying to sitting on side of be: 6 Sit to stand: 6 Chair/xmn-zd-appvs transfer: 6 Walk 10 feet: 6 Walk 50 feet with two turns: 6 Walk 150 feet: 6 PT Plan Problem List Problem List: Activity Tolerance, Functional Strength, Safety, Balance, Gait, Transfer, Bed Mobility, ROM Treatment/Plan Treatment Plan: Continue Plan of Care Treatment Plan: Bed Mobility, Education, Functional Activity Kris, Functional Strength, Gait, Safety, Therapeutic Exercise, Transfers Treatment Duration: Apr 09, 2021 Frequency: 6 times per week Estimated Hrs Per Day: .25 hour per day Patient and/or Family Agrees t: Yes Time/GCodes Time In: 951 Time Out: 1014 Total Billed Treatment 1 [facility] (20') NEGRITA GAFFNEY PT Mar 19, 2021 11:00
[2021-03-19] MEDS ORDERED: hydrALAZINE (APESOLINE) 20 MG/ML VIAL IV PRN (11:30)
[2021-03-19] MEDS ORDERED: LEVOTHYROXINE 125 MCG (LEVOTHROID) TABLET PO ONE (11:30)
--- NOTE | 2021-03-19 11:31 | History & Physical-Hospitalist ---
History of Present Illness HPI/Chief Complaint Brooke De La Cruz is a 70-year-old female with past medical history of hypertension, hyperlipidemia, coronary artery disease, history of stroke, tobacco abuse, who presented with left leg weakness. She says this started yesterday morning. She said that her family also thought that she was slurring her speech. She denies any numbness or weakness in her upper extremities. She denies any fevers or chills. She denies any headache or vision changes. She denies any chest pain or palpitations. She denies any shortness of breath or cough. She denies any abdominal pain, nausea, vomiting, diarrhea, or constipation. She denies any dysuria or urinary symptoms. She is a current smoker. Source: patient Exam Limitations: no limitations Date Seen 03/19/21 Time Seen by a Provider: 09:45 Attending Physician Rae Mcmahan MD PCP Mariana Bowers Aprn Referring Physician Date of Admission Mar 18, 2021 at 15:56 Home Medications & Allergies Home Medications Reviewed patient Home Medication Reconciliation performed by pharmacy medication reconciliations processing technician and/or nursing. Patients Allergies have been reviewed. Allergies Allergies Coded Allergies Sulfa (Sulfonamide Antibiotics) (Verified Allergy, Unknown, 05/01/19) Past Gyjzljw-Abveyc-Ufzhvo Hx Patient Social History Tobacco Use?: Yes Tobacco type used: Cigarettes Smoking Status: Current Everyday Smoker Use of E-Cig and/or Vaping dev: No Substance use?: No Alcohol Use?: No Pt feels they are or have been: No Immunizations Up To Date First/Initial COVID19 Vaccinat: THIS SPRING-UNSURE OF DATE Second COVID19 Vaccination Saul: THIS SPRING-UNSURE OF DATE Tetanus Booster (TDap): Unknown Seasonal Allergies Seasonal Allergies: No Current Status status: No status: No Advance Directives: No Communicates: Verbally Primary Language: Fijian Preferred Spoken Language: Fijian Is interpretation needed?: No Sensory deficits: Vision impairment Implanted or Applied Medical D: None Past Medical History Surgeries: Hysterectomy, Orthopedic High Cholesterol, Hypertension Stroke Diabetes, Non-Insulin dep Family Medical History No Pertinent Family Hx Review of Systems Constitutional: weakness EENTM: no symptoms reported Respiratory: no symptoms reported Cardiovascular: no symptoms reported Gastrointestinal: no symptoms reported Genitourinary: no symptoms reported Musculoskeletal: back pain Skin: no symptoms reported Psychiatric/Neurological: No Symptoms Reported Physical Exam Physical Exam Vital Signs Vital Signs - First Documented 03/18/21 03/18/21 14:19 23:54 Pulse 53 Resp 16 B/P (MAP) 150/74 Pulse Ox 93 O2 Delivery Room Air FiO2 21 Capillary Refill : Less Than 3 Seconds Height, Weight, BMI Height: 5'8.00" Weight: 236lbs. oz. 107.694109rr; 34.57 BMI Method:Stated General Appearance: No Apparent Distress, Obese HEENT: PERRL/EOMI, Pharynx Normal Neck: Normal Inspection, Supple Respiratory: Lungs Clear, Normal Breath Sounds, No Respiratory Distress Cardiovascular: Regular Rate, Rhythm, No Edema, No Murmur Gastrointestinal: Normal Bowel Sounds, Non Tender, Soft Extremity: Normal Inspection, Non Tender, No Pedal Edema Neurologic/Psychiatric: Alert, Oriented x3, Normal Mood/Affect, Other (Dysmetria left lower extremity greater than right) Skin: Normal Color, Warm/Dry Lymphatic: No Adenopathy Results Results/Procedures Labs Laboratory Tests 03/18/21 14:22 Patient resulted labs reviewed. Imaging: Reviewed Imaging Report Assessment/Plan Admission Diagnosis Left leg weakness Admission Status: Observation Assessment and Plan Left leg weakness Possible stroke History of stroke CT unremarkable MRI ordered, not available until Sunday Carotid ultrasound ordered Continue aspirin and Crestor PT/OT Elevated troponin Coronary artery disease Troponin mildly elevated EKG without ischemic changes Cardiology consulted, appreciate assistance Hypertension Hyperlipidemia Hypothyroidism Continue home meds Obesity Clinically significant, no acute management needs DVT prophylaxis: Lovenox Diagnosis/Problems Diagnosis/Problems (1) Left leg weakness Status: Acute (2) Elevated troponin Status: Acute (3) Coronary artery disease without angina pectoris Status: Chronic (4) Essential hypertension Status: Chronic (5) Mixed hyperlipidemia Status: Chronic (6) Obesity Status: Chronic (7) Tobacco abuse Status: Chronic Clinical Quality Measures Stroke: Date of last known well: Mar 18, 2021 RAE MCMAHAN MD Mar 19, 2021 11:31
[2021-03-19] MEDS: DOCUSATE SODIUM 100 MG (COLACE) CAP PO SCH ×2 (11:36→20:00)
[2021-03-19] MEDS: ASPIRIN E.C. 81 MG (ECOTRIN) TAB PO SCH (11:36)
[2021-03-19] MEDS: SENNOSIDES 8.6 MG (SENOKOT) TAB PO SCH ×2 (11:36→20:00)
--- NOTE | 2021-03-19 12:43 | Cardiology Progress Note ---
Progress Note-Cardiology Events since last exam Date Seen by Provider: Mar 19, 2021 Time Seen by Provider: 12:38 Events since last exam We are seeing her due to elevated troponin level in the setting of a possible stroke. She is on the cardiac stepdown unit. When I saw her she was laying in bed. She states her left leg is still weak. She denies any chest pain, dyspnea at rest, palpitations, syncope, or ankle edema. She did get up earlier today with physical therapy but shortly after standing, she said she needed to sit back down. Certain portions of this document may have been dictated utilizing voice recognition technology. Inherent to this technology, typographical and grammatical errors may exist. As much as I am diligent to identify and correct these mistakes, some errors may remain in the document. Vitals Last set of Vitals Signs Vital Signs 03/18/21 23:54 FiO2 21 Labs Labs Laboratory Tests 03/18/21 14:22 Exam Vital Signs Vital Signs Date Time Temp Pulse Resp B/P (MAP) Pulse Ox O2 Delivery O2 Flow Rate FiO2 03/19/21 11:05 36.6 53 14 163/84 (110) 94 Room Air 03/18/21 23:54 21 Physical Exam General: Alert. No acute distress. She is obese. Eye: No xanthelasma. HENT: Normocephalic. Neck: Jugular venous pressure does not appear elevated. Respiratory: Lungs are clear to auscultation. Respirations are non-labored. Breath sounds are equal. Symmetrical chest wall expansion. Cardiovascular: Normal rate. Regular rhythm. No murmur. No gallop. No edema. Gastrointestinal: Soft. Normal bowel sounds. Skin: Warm. Dry. Neurologic: Alert and oriented to person, place, time. Cranial nerves 3-11 grossly intact. Left leg seems to be weak. Psychiatric: Cooperative. Flat affect. Labs Laboratory Tests Test 03/18/21 14:22 03/18/21 14:56 03/18/21 15:04 03/18/21 21:35 Range/Units White Blood Count 8.3 4.3-11.0 10^3/uL Red Blood Count 4.27 3.80-5.11 10^6/uL Hemoglobin 13.8 11.5-16.0 g/dL Hematocrit 41 35-52 % Mean Corpuscular Volume 97 80-99 fL Mean Corpuscular Hemoglobin 32 25-34 pg Mean Corpuscular Hemoglobin Concent 33 32-36 g/dL Red Cell Distribution Width 12.8 10.0-14.5 % Platelet Count 237 130-400 10^3/uL Mean Platelet Volume 9.2 9.0-12.2 fL Immature Granulocyte % (Auto) 0 % Neutrophils (%) (Auto) 61 42-75 % Lymphocytes (%) (Auto) 26 12-44 % Monocytes (%) (Auto) 9 0-12 % Eosinophils (%) (Auto) 3 0-10 % Basophils (%) (Auto) 1 0-10 % Neutrophils # (Auto) 5.0 1.8-7.8 10^3/uL Lymphocytes # (Auto) 2.2 1.0-4.0 10^3/uL Monocytes # (Auto) 0.7 0.0-1.0 10^3/uL Eosinophils # (Auto) 0.3 0.0-0.3 10^3/uL Basophils # (Auto) 0.1 0.0-0.1 10^3/uL Immature Granulocyte # (Auto) 0.0 0.0-0.1 10^3/uL Prothrombin Time 13.1 12.2-14.7 SEC INR Comment 1.0 0.8-1.4 Activated Partial Thromboplast Time 31 24-35 SEC D-Dimer 0.79 H 0.00-0.49 UG/ML Sodium Level 139 135-145 MMOL/L Potassium Level 4.4 3.6-5.0 MMOL/L Chloride Level 103 98-107 MMOL/L Carbon Dioxide Level 24 21-32 MMOL/L Anion Gap 12 5-14 MMOL/L Blood Urea Nitrogen 17 7-18 MG/DL Creatinine 0.85 0.60-1.30 MG/DL Estimat Glomerular Filtration Rate > 60 BUN/Creatinine Ratio 20 Glucose Level 98 70-105 MG/DL Calcium Level 9.5 8.5-10.1 MG/DL Corrected Calcium 9.3 8.5-10.1 MG/DL Total Bilirubin 0.4 0.1-1.0 MG/DL Aspartate Amino Transf (AST/SGOT) 26 5-34 U/L Alanine Aminotransferase (ALT/SGPT) 30 0-55 U/L Alkaline Phosphatase 71 40-136 U/L Troponin I 0.104 H 0.110 H <0.028 NG/ML Total Protein 7.2 6.4-8.2 GM/DL Albumin 4.2 3.2-4.5 GM/DL Urine Color YELLOW Urine Clarity CLEAR Urine pH 6.0 5-9 Urine Specific [place] 1.025 H 1.016-1.022 Urine Protein NEGATIVE NEGATIVE Urine Glucose (UA) NEGATIVE NEGATIVE Urine Ketones NEGATIVE NEGATIVE Urine Nitrite NEGATIVE NEGATIVE Urine Bilirubin NEGATIVE NEGATIVE Urine Urobilinogen 0.2 < = 1.0 MG/DL Urine Leukocyte Esterase NEGATIVE NEGATIVE Urine RBC (Auto) NEGATIVE NEGATIVE Urine RBC NONE /HPF Urine WBC NONE /HPF Urine Squamous Epithelial Cells RARE /HPF Urine Crystals NONE /LPF Urine Bacteria TRACE /HPF Urine Casts NONE /LPF Urine Mucus NEGATIVE /LPF Urine Culture Indicated NO Glucometer 92 70-110 MG/DL Test 03/19/21 05:30 Range/Units Troponin I 0.119 H <0.028 NG/ML Triglycerides Level 130 <150 MG/DL Cholesterol Level 120 < 200 MG/DL LDL Cholesterol Direct 60 1-129 MG/DL VLDL Cholesterol 26 5-40 MG/DL HDL Cholesterol 42 40-60 MG/DL Diagnosis/Problems Diagnosis/Problems (1) Troponin level elevated Assessment & Plan: She did not report any chest discomfort to me. 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 Her troponin levels are essentially flat. 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 This may be a type II non-ST elevation myocardial infarction related to her possible stroke and also laying on the floor for 2 hours. I recommend she continue on the present guideline directed medical therapy with aspirin, beta-ethel and statin medication. I would hold off on giving her clopidogrel until she has the MRI of her brain on Sunday.. At this point in time, I do not see any indication for a cardiac catheterization. (2) Coronary artery disease without angina pectoris Status: Chronic Assessment & Plan: As above, she does not appear to be having any unstable angina at this time. As above, I recommend continuing guideline directed medical therapy. Given her extensive history of vascular disease, she should stop her estrogen replacement therapy. (3) Acute left-sided weakness Assessment & Plan: Her head CT did not show any acute changes. She has an MRI of the brain pending for Sunday. If she has evidence of ischemic/embolic strokes on her MRI, then she may need prolonged monitoring for atrial fibrillation. I typically will start with a 30-day event recorder and if this is unrevealing, tiffani kennedy I will proceed with an implanted loop recorder. (4) Essential hypertension Status: Chronic Assessment & Plan: Her blood pressures are intermittently elevated. I will take the liberty of doubling her dose of metoprolol succinate. (5) Mixed hyperlipidemia Status: Chronic Assessment & Plan: Continue statin medication. Her LDL is at target. If she does not fact have an acute stroke, we may need to intensify her antilipemic therapy. (6) Cigarette smoker Assessment & Plan: She was again encouraged to quit smoking. YOUSIF NATION JR, MD Mar 19, 2021 12:43
[2021-03-19] MEDS ORDERED: HYDR-3820 PO (17:56)
[2021-03-19] MEDS ORDERED: CYCL5TAB PO (17:56)
[2021-03-19] MEDS ORDERED: [UNRECOGNIZED DRUG - CODE] MC (17:56)
[2021-03-19] MEDS ORDERED: PREG50CA65 PO (17:56)
[2021-03-19] MEDS ORDERED: LACT-228 PO (17:56)
[2021-03-19] MEDS ORDERED: MTP25TSR PO (18:03)
[2021-03-19] MEDS ORDERED: [UNRECOGNIZED DRUG - OTHER] PO (18:03)
[2021-03-19] MEDS: ROSUVASTATIN 20 MG (CRESTOR) TABLET PO SCH (20:00)
[2021-03-19] MEDS: NICOTINE 21 MG (NICODERM) PATCH TD SCH (20:59)
[2021-03-19] MEDS: ENOXAPARIN 40 MG/0.4 ML (LOVENOX) SYR SC SCH (21:00)
[2021-03-20] MEDS: LEVOTHYROXINE 125 MCG (LEVOTHROID) TABLET PO SCH (05:50)
--- NOTE | 2021-03-20 06:42 | Progress Note - Hospitalist ---
Subjective HPI/CC On Admission Date Seen by Provider: Mar 20, 2021 Time Seen by Provider: 10:00 Brooke De La Cruz is a 70-year-old female with past medical history of hypertension, hyperlipidemia, coronary artery disease, history of stroke, tobacco abuse, who presented with left leg weakness. She says this started yesterday morning. She said that her family also thought that she was slurring her speech. She denies any numbness or weakness in her upper extremities. She denies any fevers or chills. She denies any headache or vision changes. She denies any chest pain or palpitations. She denies any shortness of breath or cough. She denies any abdominal pain, nausea, vomiting, diarrhea, or constipation. She denies any dysuria or urinary symptoms. She is a current smoker. Subjective/Events-last exam Patient doing about the same Left leg is much improved Having some dysphagia Bowels are moving Transferring is improved May need inpatient rehab MRI pending until Sunday Check meds and labs Review of Systems General: Fatigue HEENT: Dysphasia Neurological: Weakness, Incoordination Objective Exam Vital Signs Vital Signs Date Time Temp Pulse Resp B/P (MAP) Pulse Ox O2 Delivery O2 Flow Rate FiO2 03/21/21 03:54 35.9 51 14 164/89 (114) 94 NIV CPAP 03/18/21 23:54 21 Capillary Refill : Less Than 3 Seconds General Appearance: No Apparent Distress, WD/WN, Chronically ill, Obese Respiratory: Lungs Clear Cardiovascular: Regular Rate, Rhythm Neurologic/Psychiatric: Alert, Oriented x3, No Motor/Sensory Deficits, Depressed Affect, Motor Weakness (Slight left foot and leg weakness 4/5) Results/Procedures Lab Laboratory Tests 03/20/21 07:53 Patient resulted labs reviewed. Imaging: Reviewed Imaging Report Assessment/Plan Assessment and Plan Assess & Plan/Chief Complaint Assessment: Left leg weakness MRI pending Sunday Possible CVA History of CVA Elevated troponin CAD Hypertension Hyperlipidemia Hypothyroidism Obesity Plan: PT and OT MRI Rehab Clinical Quality Measures Stroke: Date of last known well: Mar 18, 2021 JOSÉ MARIE DO Mar 20, 2021 06:42
[2021-03-20 08:00] LABS: BASOPHILS # (AUTO) 0.1 10^3/uL (0.0-0.1); BASOPHILS % (AUTO) 1 % (0-10); EOSINOPHILS # (AUTO) 0.3 10^3/uL (0.0-0.3); EOSINOPHILS % (AUTO) 4 % (0-10); HEMATOCRIT 43 % (35-52); LYMPHOCYTES # (AUTO) 2.1 10^3/uL (1.0-4.0); LYMPHOCYTES % (AUTO) 32 % (12-44); MEAN CORPUSCULAR HEMOGLOBIN 32 pg (25-34); MEAN CORPUSCULAR HGB CONC 33 g/dL (32-36); MEAN CORPUSCULAR VOLUME 98 fL (80-99); MEAN PLATELET VOLUME 8.9 fL (9.0-12.2); MONOCYTES # (AUTO) 0.6 10^3/uL (0.0-1.0); MONOCYTES % (AUTO) 10 % (0-12); NEUTROPHILS # (AUTO) 3.4 10^3/uL (1.8-7.8); NEUTROPHILS % (AUTO) 53 % (42-75); PLATELET COUNT 227 10^3/uL (130-400); WHITE BLOOD COUNT 6.4 10^3/uL (4.3-11.0)
[2021-03-20 08:16] LABS: ALBUMIN 4.1 GM/DL (3.2-4.5)
[2021-03-20 08:17] LABS: CHLORIDE 105 MMOL/L (98-107); POTASSIUM 4.3 MMOL/L (3.6-5.0); SODIUM 143 MMOL/L (135-145)
[2021-03-20 08:18] LABS: CALCIUM 9.4 MG/DL (8.5-10.1)
[2021-03-20 08:19] LABS: GLUCOSE 113 MG/DL (70-105); TOTAL PROTEIN 7.1 GM/DL (6.4-8.2)
[2021-03-20 08:20] LABS: CARBON DIOXIDE 29 MMOL/L (21-32)
[2021-03-20 08:21] LABS: BILIRUBIN,TOTAL 0.5 MG/DL (0.1-1.0)
[2021-03-20 08:22] LABS: ALKALINE PHOSPHATASE 64 U/L (40-136)
[2021-03-20 08:23] LABS: CREATININE SERUM 0.91 MG/DL (0.60-1.30); GFR ESTIMATED > 60
[2021-03-20 08:24] LABS: BUN/CREATININE RATIO 16
[2021-03-20 08:26] LABS: ALANINE AMINOTRANSFERASE 31 U/L (0-55)
[2021-03-20] MEDS: NICOTINE 21 MG (NICODERM) PATCH TD SCH (09:26)
[2021-03-20] MEDS: DOCUSATE SODIUM 100 MG (COLACE) CAP PO SCH ×2 (09:26→20:07)
[2021-03-20] MEDS: SENNOSIDES 8.6 MG (SENOKOT) TAB PO SCH ×2 (09:26→20:07)
[2021-03-20] MEDS: NICOTINE PATCH REMOVAL TP SCH (09:26)
[2021-03-20] MEDS: ASPIRIN E.C. 81 MG (ECOTRIN) TAB PO SCH (09:26)
[2021-03-20] MEDS: meTOproloL SUCCINATE 50 MG (TOPROL XL) TAB PO SCH (09:26)
--- NOTE | 2021-03-20 14:13 | Cardiology Progress Note ---
Progress Note-Cardiology Events since last exam Date Seen by Provider: Mar 20, 2021 Time Seen by Provider: 14:08 Events since last exam We are seeing her due to elevated troponin level. She has transfer orders to the medical/surgical floor. When I saw her, she was sitting up in bed. Her spirits seemed much better. She denies chest pain, palpitations, or syncope. No change in her chronic, mild shortness of breath at rest. She can now move her left leg and states she can stand up on her own although she did need assist when using the bedside commode. Vitals Last set of Vitals Signs Vital Signs 03/18/21 03/20/21 03/20/21 03/20/21 23:54 08:40 12:33 12:45 Temp 36.3 Pulse 52 Resp 16 B/P (MAP) 130/71 (90) Pulse Ox 95 O2 Delivery Room Air FiO2 21 Labs Labs Laboratory Tests 03/20/21 07:53 Exam Vital Signs Vital Signs Date Time Temp Pulse Resp B/P (MAP) Pulse Ox O2 Delivery O2 Flow Rate FiO2 03/20/21 12:45 52 03/20/21 12:33 Room Air 03/20/21 08:40 36.3 16 130/71 (90) 95 03/18/21 23:54 21 Physical Exam General: Alert. No acute distress. Eye: No xanthelasma. HENT: Normocephalic. Neck: Jugular venous pressure does not appear elevated. Respiratory: Lungs have diffusely decreased breath sounds with scattered wheezes. Respirations are non-labored. Breath sounds are equal. Symmetrical chest wall expansion. Cardiovascular: Normal rate. Regular rhythm. No murmur. No gallop. Trace erin ateral pretibial edema. Gastrointestinal: Soft. Normal bowel sounds. Skin: Warm. Dry. Neurologic: Alert and oriented to person, place, time. Cranial nerves 3-11 grossly intact. Psychiatric: Cooperative. Appropriate mood & affect. Labs Laboratory Tests Test 03/20/21 07:53 Range/Units White Blood Count 6.4 4.3-11.0 10^3/uL Red Blood Count 4.38 3.80-5.11 10^6/uL Hemoglobin 14.0 11.5-16.0 g/dL Hematocrit 43 35-52 % Mean Corpuscular Volume 98 80-99 fL Mean Corpuscular Hemoglobin 32 25-34 pg Mean Corpuscular Hemoglobin Concent 33 32-36 g/dL Red Cell Distribution Width 12.6 10.0-14.5 % Platelet Count 227 130-400 10^3/uL Mean Platelet Volume 8.9 L 9.0-12.2 fL Immature Granulocyte % (Auto) 0 % Neutrophils (%) (Auto) 53 42-75 % Lymphocytes (%) (Auto) 32 12-44 % Monocytes (%) (Auto) 10 0-12 % Eosinophils (%) (Auto) 4 0-10 % Basophils (%) (Auto) 1 0-10 % Neutrophils # (Auto) 3.4 1.8-7.8 10^3/uL Lymphocytes # (Auto) 2.1 1.0-4.0 10^3/uL Monocytes # (Auto) 0.6 0.0-1.0 10^3/uL Eosinophils # (Auto) 0.3 0.0-0.3 10^3/uL Basophils # (Auto) 0.1 0.0-0.1 10^3/uL Immature Granulocyte # (Auto) 0.0 0.0-0.1 10^3/uL Sodium Level 143 135-145 MMOL/L Potassium Level 4.3 3.6-5.0 MMOL/L Chloride Level 105 98-107 MMOL/L Carbon Dioxide Level 29 21-32 MMOL/L Anion Gap 9 5-14 MMOL/L Blood Urea Nitrogen 15 7-18 MG/DL Creatinine 0.91 0.60-1.30 MG/DL Estimat Glomerular Filtration Rate > 60 BUN/Creatinine Ratio 16 Glucose Level 113 H 70-105 MG/DL Calcium Level 9.4 8.5-10.1 MG/DL Corrected Calcium 9.3 8.5-10.1 MG/DL Total Bilirubin 0.5 0.1-1.0 MG/DL Aspartate Amino Transf (AST/SGOT) 24 5-34 U/L Alanine Aminotransferase (ALT/SGPT) 31 0-55 U/L Alkaline Phosphatase 64 40-136 U/L Total Protein 7.1 6.4-8.2 GM/DL Albumin 4.1 3.2-4.5 GM/DL Diagnosis/Problems Diagnosis/Problems (1) Troponin level elevated Assessment & Plan: She has not reported any chest discomfort. 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 Her troponin levels are essentially flat. 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 This may be a type II non-ST elevation myocardial infarction related to her possible stroke and also laying on the floor for 2 hours. I recommend she continue on the present guideline directed medical therapy with aspirin, beta-ethel and statin medication. I would hold off on giving her clopidogrel until she has the MRI of her brain on Sunday. Once we have the results of the MRI, I will decide whether or not we should continue with medical therapy versus a noninvasive or invasive ischemic evaluation. (2) Coronary artery disease without angina pectoris Status: Chronic Assessment & Plan: As above, she does not appear to be having any unstable angina at this time. As above, I recommend continuing guideline directed medical therapy. Given her extensive history of vascular disease, she should stop her estrogen replacement therapy. (3) Acute left-sided weakness Assessment & Plan: Her head CT did not show any acute changes. Her weakness has improved. She denies any recurrent neurologic complaints. She has an MRI of the brain and carotid ultrasound scheduled for tomorrow. If she has evidence of ischemic/embolic strokes on her MRI, then she may need prolonged monitoring for atrial fibrillation. I typically will start with a 30-day event recorder and if this is unrevealing, then I will proceed with an implanted loop recorder. (4) Essential hypertension Status: Chronic Assessment & Plan: Her blood pressures are improved after I doubled her dose of metoprolol succinate. (5) Mixed hyperlipidemia Status: Chronic Assessment & Plan: Continue statin medication. Her LDL is at target. If she does not fact have an acute stroke, we may need to intensify her antilipemic therapy. (6) Cigarette smoker Assessment & Plan: She was again encouraged to quit smoking. YOUSIF NATION JR, MD Mar 20, 2021 14:13
[2021-03-20] MEDS: ROSUVASTATIN 20 MG (CRESTOR) TABLET PO SCH (20:07)
[2021-03-20] MEDS: ENOXAPARIN 40 MG/0.4 ML (LOVENOX) SYR SC SCH (20:45)
[2021-03-21 01:15] VITALS: BP 177/84
[2021-03-21] MEDS: PREGABALIN 50 MG (LYRICA) CAP PO SCH ×4 (02:07→20:58)
--- NOTE | 2021-03-21 05:53 | Progress Note - Hospitalist ---
Subjective HPI/CC On Admission Date Seen by Provider: Mar 21, 2021 Time Seen by Provider: 10:00 Brooke De La Cruz is a 70-year-old female with past medical history of hypertension, hyperlipidemia, coronary artery disease, history of stroke, tobacco abuse, who presented with left leg weakness. She says this started yesterday morning. She said that her family also thought that she was slurring her speech. She denies any numbness or weakness in her upper extremities. She denies any fevers or chills. She denies any headache or vision changes. She denies any chest pain or palpitations. She denies any shortness of breath or cough. She denies any abdominal pain, nausea, vomiting, diarrhea, or constipation. She denies any dysuria or urinary symptoms. She is a current smoker. Subjective/Events-last exam Pt doing pretty well Daughter from [facility] is here on leave from her work Daughter is concerned about dementia MRI was scheduled but then she could not withstand it due to claustrophobia Home meds were restarted along with restless leg syndrome meds of Lyrica Carotid ultrasound completed Inpatient rehab order placed PT and OT will continue to work with her Review of Systems General: Fatigue, Malaise Neurological: Confusion Objective Exam Vital Signs Vital Signs Date Time Temp Pulse Resp B/P (MAP) Pulse Ox O2 Delivery O2 Flow Rate FiO2 03/22/21 04:29 36.2 53 20 113/57 (75) 93 NIV CPAP 03/18/21 23:54 21 Capillary Refill : Less Than 3 Seconds General Appearance: No Apparent Distress, WD/WN, Chronically ill, Obese Respiratory: Lungs Clear, Normal Breath Sounds Cardiovascular: Regular Rate, Rhythm Neurologic/Psychiatric: Alert, Oriented x3, Normal Mood/Affect Results/Procedures Lab Laboratory Tests 03/21/21 06:29 Patient resulted labs reviewed. Imaging: Reviewed Imaging Report Assessment/Plan Assessment and Plan Assess & Plan/Chief Complaint Assessment: Left leg weakness MRI pending Sunday Possible CVA History of CVA Elevated troponin CAD Hypertension Hyperlipidemia Hypothyroidism Obesity Plan: PT and OT MRI Rehab 03/21/2021: Canceled MRI due to claustrophobia Transfer to fourth floor Monitor closely Likely will need skilled care or rehab depending on bed availability Clinical Quality Measures Stroke: Date of last known well: Mar 18, 2021 JOSÉ MARIE DO Mar 21, 2021 05:53
[2021-03-21] MEDS: LEVOTHYROXINE 125 MCG (LEVOTHROID) TABLET PO SCH (06:38)
[2021-03-21 06:39] LABS: BASOPHILS % (AUTO) 1 % (0-10); EOSINOPHILS # (AUTO) 0.2 10^3/uL (0.0-0.3); EOSINOPHILS % (AUTO) 4 % (0-10); HEMATOCRIT 43 % (35-52); HEMOGLOBIN 14.3 g/dL (11.5-16.0); LYMPHOCYTES # (AUTO) 2.3 10^3/uL (1.0-4.0); LYMPHOCYTES % (AUTO) 36 % (12-44); MEAN CORPUSCULAR HEMOGLOBIN 32 pg (25-34); MEAN CORPUSCULAR HGB CONC 33 g/dL (32-36); MEAN CORPUSCULAR VOLUME 96 fL (80-99); MEAN PLATELET VOLUME 9.3 fL (9.0-12.2); MONOCYTES # (AUTO) 0.7 10^3/uL (0.0-1.0); MONOCYTES % (AUTO) 11 % (0-12); NEUTROPHILS # (AUTO) 3.2 10^3/uL (1.8-7.8); NEUTROPHILS % (AUTO) 49 % (42-75); PLATELET COUNT 231 10^3/uL (130-400); WHITE BLOOD COUNT 6.5 10^3/uL (4.3-11.0)
[2021-03-21 07:00] LABS: ALBUMIN 4.1 GM/DL (3.2-4.5); CHLORIDE 105 MMOL/L (98-107); SODIUM 139 MMOL/L (135-145)
[2021-03-21 07:02] LABS: CALCIUM 9.1 MG/DL (8.5-10.1)
[2021-03-21 07:03] LABS: GLUCOSE 110 MG/DL (70-105); TOTAL PROTEIN 7.1 GM/DL (6.4-8.2)
[2021-03-21 07:04] LABS: CARBON DIOXIDE 25 MMOL/L (21-32)
[2021-03-21 07:05] LABS: BILIRUBIN,TOTAL 0.4 MG/DL (0.1-1.0)
[2021-03-21 07:06] LABS: ALKALINE PHOSPHATASE 59 U/L (40-136); GFR ESTIMATED > 60
[2021-03-21 07:07] LABS: BUN/CREATININE RATIO 19
[2021-03-21 07:09] LABS: ALANINE AMINOTRANSFERASE 31 U/L (0-55)
[2021-03-21] MEDS: NICOTINE 21 MG (NICODERM) PATCH TD SCH (09:07)
[2021-03-21] MEDS: meTOproloL SUCCINATE 50 MG (TOPROL XL) TAB PO SCH (09:07)
[2021-03-21] MEDS: DOCUSATE SODIUM 100 MG (COLACE) CAP PO SCH ×2 (09:07→20:58)
[2021-03-21] MEDS: ASPIRIN E.C. 81 MG (ECOTRIN) TAB PO SCH (09:07)
[2021-03-21] MEDS: SENNOSIDES 8.6 MG (SENOKOT) TAB PO SCH ×2 (09:07→20:58)
[2021-03-21] MEDS: NICOTINE PATCH REMOVAL TP SCH (09:07)
--- NOTE | 2021-03-21 09:36 | Cardiology Progress Note ---
Progress Note-Cardiology Events since last exam Date Seen by Provider: Mar 21, 2021 Time Seen by Provider: 09:31 Events since last exam We are seeing her due to an elevated troponin level in the presence of known coronary artery disease. She feels as though her left leg is back to normal. She denies chest discomfort, change in her chronic shortness of breath, palpitations, syncope, or ankle edema. Vitals Last set of Vitals Signs Vital Signs 03/18/21 03/21/21 23:54 08:55 Temp 36.2 Pulse 56 Resp 19 B/P (MAP) 159/95 (116) Pulse Ox 96 O2 Delivery Room Air FiO2 21 Labs Labs Laboratory Tests 03/21/21 06:29 Exam Vital Signs Vital Signs Date Time Temp Pulse Resp B/P (MAP) Pulse Ox O2 Delivery O2 Flow Rate FiO2 03/21/21 08:55 36.2 56 19 159/95 (116) 96 Room Air 03/18/21 23:54 21 Physical Exam General: Alert. No acute distress. She is obese. Eye: No xanthelasma. HENT: Normocephalic. Neck: Jugular venous pressure does not appear elevated. Respiratory: Lungs have diffusely decreased breath sounds with scattered wheez es. Respirations are non-labored. Breath sounds are equal. Symmetrical chest wall expansion. Cardiovascular: Normal rate. Regular rhythm. No murmur. No gallop. Trace bilateral pretibial edema. Gastrointestinal: Soft. Normal bowel sounds. Skin: Warm. Dry. Neurologic: Alert and oriented to person, place, time. Cranial nerves 3-11 grossly intact. Psychiatric: Cooperative. Appropriate mood & affect. Labs Laboratory Tests Test 03/21/21 06:29 Range/Units White Blood Count 6.5 4.3-11.0 10^3/uL Red Blood Count 4.46 3.80-5.11 10^6/uL Hemoglobin 14.3 11.5-16.0 g/dL Hematocrit 43 35-52 % Mean Corpuscular Volume 96 80-99 fL Mean Corpuscular Hemoglobin 32 25-34 pg Mean Corpuscular Hemoglobin Concent 33 32-36 g/dL Red Cell Distribution Width 12.4 10.0-14.5 % Platelet Count 231 130-400 10^3/uL Mean Platelet Volume 9.3 9.0-12.2 fL Immature Granulocyte % (Auto) 0 % Neutrophils (%) (Auto) 49 42-75 % Lymphocytes (%) (Auto) 36 12-44 % Monocytes (%) (Auto) 11 0-12 % Eosinophils (%) (Auto) 4 0-10 % Basophils (%) (Auto) 1 0-10 % Neutrophils # (Auto) 3.2 1.8-7.8 10^3/uL Lymphocytes # (Auto) 2.3 1.0-4.0 10^3/uL Monocytes # (Auto) 0.7 0.0-1.0 10^3/uL Eosinophils # (Auto) 0.2 0.0-0.3 10^3/uL Basophils # (Auto) 0.0 0.0-0.1 10^3/uL Immature Granulocyte # (Auto) 0.0 0.0-0.1 10^3/uL Sodium Level 139 135-145 MMOL/L Potassium Level 4.0 3.6-5.0 MMOL/L Chloride Level 105 98-107 MMOL/L Carbon Dioxide Level 25 21-32 MMOL/L Anion Gap 9 5-14 MMOL/L Blood Urea Nitrogen 15 7-18 MG/DL Creatinine 0.80 0.60-1.30 MG/DL Estimat Glomerular Filtration Rate > 60 BUN/Creatinine Ratio 19 Glucose Level 110 H 70-105 MG/DL Calcium Level 9.1 8.5-10.1 MG/DL Corrected Calcium 9.0 8.5-10.1 MG/DL Total Bilirubin 0.4 0.1-1.0 MG/DL Aspartate Amino Transf (AST/SGOT) 25 5-34 U/L Alanine Aminotransferase (ALT/SGPT) 31 0-55 U/L Alkaline Phosphatase 59 40-136 U/L Total Protein 7.1 6.4-8.2 GM/DL Albumin 4.1 3.2-4.5 GM/DL Diagnosis/Problems Diagnosis/Problems (1) Troponin level elevated Assessment & Plan: She has not reported any chest discomfort prior to or during her hospitalization. She has an old inferior infarct on her resting e lectrocardiogram with no ischemic changes at rest. Her troponin levels are essentially flat. 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 This may be a type II non-ST elevation myocardial infarction related to her possible stroke and also laying on the floor for 2 hours. Her echocardiogram from this morning shows a normal ejection fraction with no wall motion abnormalities. I recommend she continue on the present guideline directed medical therapy with aspirin, beta-ethel and statin medication. Depending upon the results of the MRI of the brain, I will decide whether or not to start her on clopidogrel. Once we have the results of the MRI, I will also decide whether or not we should continue with medical therapy versus a noninvasive or invasive ischemic evaluation. (2) Coronary artery disease without angina pectoris Status: Chronic Assessment & Plan: As above, she does not appear to be having any unstable angina at this time. As above, I recommend continuing guideline directed medical therapy. Given her extensive history of vascular disease, her estrogen replacement therapy has been discontinued. I would recommend she not resume this medication when she is discharged. (3) Acute left-sided weakness Assessment & Plan: Her head CT did not show any acute changes. Her weakness has improved. She denies any recurrent neurologic complaints.She will be undergoing an MRI of the brain and carotid ultrasound today. If she has evidence of ischemic/embolic strokes on her MRI, then she may need prolonged monitoring for atrial fibrillation. I typically will start with a 30-day event recorder and if this is unrevealing, then I will proceed with an implanted loop recorder. (4) Essential hypertension Status: Chronic Assessment & Plan: Her blood pressures are still elevated at times after I doubled her dose of metoprolol succinate. I will add low-dose losartan. (5) Mixed hyperlipidemia Status: Chronic Assessment & Plan: Continue statin medication. Her LDL is at target. If she does not fact have an acute stroke, we may need to intensify her antilipemic therapy. (6) Cigarette smoker Assessment & Plan: She was again encouraged to quit smoking. YOUSIF NATION JR, MD Mar 21, 2021 09:36
[2021-03-21] MEDS ORDERED: LOSARTAN 25 MG (COZAAR) TAB PO ONE (09:45)
--- NOTE | 2021-03-21 09:51 | Diagnostic Imaging Report ---
PROCEDURE: US carotid duplex, bilateral. TECHNIQUE: Multiple real-time grayscale images were obtained over the carotid arteries in various projections, bilaterally. Additional spectral analysis and color Doppler duplex images were also obtained. INDICATION: Left leg weakness. FINDINGS: There is no pathological elevation of either internal carotid artery. There is elevation of the right greater than left ICA to CCA percent ratios measuring 1.7 right and 1.5 left. Scattered bilateral areas of intimal thickening and calcified as well as noncalcified plaques of somewhat greater left than right. Normal color Doppler laminar blood flow is preserved and no findings of acute or other significant degree of stenosis. The vertebrals were never confidently visualized with color Doppler. IMPRESSION: Left greater than right calcified carotid plaques but no findings of a hemodynamically significant degree of stenosis. Vertebrals could not be evaluated on a technical basis, they may be too small to be sonographically demonstrated. Patency and directional flow however could not be addressed at Doppler. Parameters based on the consensus panel Adrian-Scale and Doppler ultrasound criteria published July 2003, Radiology, Volume 229. DOPPLER (peak systolic velocity M/S Right Left CCA .40 0.68 ICA Proximal .43 .66 ICA Mid .45 1.01 ICA Distal .70 .66 RATIO 1.73 1.48 ECA .78 .69 VERT NOT WELL SEEN NOT WELL SEEN Dictated by: Dictated on workstation # [id number]
--- NOTE | 2021-03-21 10:50 | Physical Therapy Daily Note ---
PT Daily Note-Current Subjective Patient in restroom pre tx, agrees to PT, has no complaints of pain, states her left leg feels much stronger. Appearance Patient in recliner post tx, will continue with nursing to change gown and get underwear on. Mental Status Patient Orientation: Person, Place, Situation Transfers SCALE: Activities may be completed with or without assistive devices. 3-Kaumzfsabj-jhjnwdr completes the activity by him/herself with no assistance from a helper. 5-Set-up or Clean-up Assistance-helper sets up or cleans up; patient completes activity. Dodson assists only prior to or following the activity. 4-Supervision or Touching Assistance-helper provides verbal cues and/or touching/steadying and/or contact guard assistance as patient completes activity. Assistance may be provided throughout the activity or intermittently. 3-Partial/Moderate Assistance-helper does LESS THAN HALF the effort. Dodson lifts, holds or supports trunk or limbs, but provides less than half the effort. 2-Substantial/Maximal Assistance-helper does MORE THAN HALF the effort. Dodson lifts or holds trunk or limbs and provides more than half the effort. 5-Wwqgrywlf-jjerwj does ALL the effort. Patient does none of the effort to complete the activity. Or, the assistance of 2 or more helpers is required for the patient to complete the activity. If activity was not attempted, code reason: 7-Patient Refused. 9-Not Applicable-not attempted and the patient did not perform the activity before the current illness, exacerbation or injury. 10-Not Attempted due to Environmental Limitations-(lack of equipment, weather restraints, etc.). 88-Not Attempted due to Medical Conditions or Safety Concerns. Sit to Stand (QC): 4 Chair/Lhc-pn-Qpavc Xfer(QC): 4 SBA Weight Bearing Full Weight Bearing Full Weight Bearing Gait Training Distance: 200' Walk 10 feet (QC): 4 Walk 50 ft with 2 Turns(QC): 4 Walk 150 ft (QC): 4 Gait Persons Needed: 1 Gait Assistive Device: FWW SBA, slow but steady ambulation, slumped posture Treatments transfers, ambulation Assessment Current Status: Fair Progress improving strength and endurance, patient did not have any SOB during ambulation PT Short Term Goals Short Term Goals Time Frame: Apr 02, 2021 Roll Left & Right: 6 Sit to lyin Lying to sitting on side of be: 6 Sit to stand: 6 Chair/mkx-td-whqxi transfer: 6 Walk 10 feet: 6 Walk 50 feet with two turns: 6 Walk 150 feet: 6 PT Plan Problem List Problem List: Activity Tolerance, Functional Strength, Safety, Balance, Gait, Transfer, Bed Mobility, ROM Treatment/Plan Treatment Plan: Continue Plan of Care Treatment Plan: Bed Mobility, Education, Functional Activity Kris, Functional Strength, Gait, Safety, Therapeutic Exercise, Transfers Treatment Duration: Apr 09, 2021 Frequency: 6 times per week Estimated Hrs Per Day: .25 hour per day Patient and/or Family Agrees t: Yes Safety Risks/Education Patient Education: Gait Training, Transfer Techniques, Correct Positioning, Safety Issues Teaching Recipient: Patient Teaching Methods: Demonstration, Discussion Response to Teaching: Reinforcement Needed Time/GCodes Time In: 1018 Time Out: 1030 Total Billed Treatment Time: 12 Total Billed Treatment 1 visit GT 12' CRUZ CORDON PT Mar 21, 2021 10:50
--- NOTE | 2021-03-21 11:15 | Progress Note ---
ANNIE SUERO MED STUDENT 03/21/21 1115: Progress Note CC: No complaints today. Eating/drinking well, able to use the restroom. PE: general: well-appearing, no distress respiratory: Lungs CTA, no respiratory distress CV: bradycardia, no edema abdomen: abdomen soft/nontender extremity: no LE swelling/tenderness psych: alert, normal mood/affect Assessment/Plan: left-sided weakness PT/OT IRF evaluation possible CVA MRI today carotid US showed left greater than right plaques, but no acute findings or significant degree of stenosis elevated troponin Dr. Barakat consulted RLS restart Lyrica hx CVA HTN HLD CAD hypothyroidism obesity tobacco abuse Restart home medications Lovenox for DVT prophylaxis KELLY MARIE DO 03/21/212116: Supervisory-Addendum Brief Verification & Attestation Participated in pt care: history, MDM, physical Personally performed: exam, history, MDM, supervision of care Care discussed with: Medical Student Procedures: n/a Results interpretation: Verified all documentation Verification and Attestation of Medical Student E/M Service A medical student performed and documented this service in my presence. I reviewed and verified all information documented by the medical student and made modifications to such information, when appropriate. I personally performed the physical exam and medical decision making. Kelly Marie, Mar 21, 2021,21:17 ANNIE SUERO MED STUDENT Mar 21, 2021 11:15 KELLY MARIE DO Mar 21, 2021 21:17
--- NOTE | 2021-03-21 14:56 | Occupational Ther Daily Note ---
OT Current Status-Daily Note Subjective No pain reported. Appearance Pt. up in chair. Daughter in room. Pt. and daughter talking and laughing. Mental Status/Objective Patient Orientation: Person ADL-Treatment Therapy Code Descriptions/Definitions Functional [place] Measure: 0=Not Assessed/NA 4=Minimal Assistance 1=Total Assistance 5=Supervision or Setup 2=Maximal Assistance 6=Modified [place] 3=Moderate Assistance 7=Complete IndependenceSCALE: Activities may be completed with or without assistive devices. 6-Ekncdvqvya-mzwpeuy completes the activity by him/herself with no assistance from a helper. 5-Set-up or Clean-up Assistance-helper sets up or cleans up; patient completes activity. [place] assists only prior to or following the activity. 4-Supervision or Touching Assistance-helper provides verbal cues and/or touching/steadying and/or contact guard assistance as patient completes activity. Assistance may be provided throughout the activity or intermittently. 3-Partial/Moderate Assistance-helper does LESS THAN HALF the effort. Mobile lifts, holds or supports trunk or limbs, but provides less than half the effort. 2-Substantial/Maximal Assistance-helper does MORE THAN HALF the effort. Mobile lifts or holds trunk or limbs and provides more than half the effort. 4-Vygeajvoh-jhxcfw does ALL the effort. Patient does none of the effort to complete the activity. Or, the assistance of 2 or more helpers is required for the patient to complete the activity. If activity was not attempted, code reason: 7-Patient Refused. 9-Not Applicable-not attempted and the patient did not perform the activity before the current illness, exacerbation or injury. 10-Not Attempted due to Environmental Limitations-(lack of equipment, weather restraints, etc.). 88-Not Attempted due to Medical Conditions or Safety Concerns. On/Off Footwear: 4 Other Treatment Pt. up in chair. She is alert and carrying on appropriate conversation with daughter. OT re-introduces self, as pt. was confused on Sunday. Pt. is able to stand from chair with SBA, with use of walker. Indicates that her balance feels okay, but after sitting, pt. indicates she is light headed and OT takes BP and it is 146/89. Pt states that she is taking BP medication for it. Light headedness resolves. Pt. able to bring bilateral feet up to her and doff/don slipper socks with effort. OT educates pt. and daughter about previous session, pt.'s confusion, and OT goals. Daughter indicates that pt. has had some confusion and memory problems since her last stroke a year ago. Pt. indicates that she declined having an MRI due to claustrophobia. Pt. states that she is feeling much better than when she came in. Speech therapy to assess cognition. Pt. ambulated with PT in [place] this date, and did well. OT educates pt. and daughter that goals will be to continue gaining strength with daily tasks for safe and independent return home. No further ADLs at this time as pt. would like to facetime great grandson. All needs met. Education OT Patient Education: Correct positioning, Modified ADL techniques, Progress toward Goal/Update tx plan, Purpose of tx/functional activities, Reviewed precautions, Rehab process, Transfer techniques Teaching Recipient: Patient OT Short Term Goals Short Term Goals Time Frame: Apr 02, 2021 Eatin Oral hygiene: 4 Toileting hygiene: 3 Shower/bathe self: 3 Upper body dressin Lower body dressin Putting on/taking off footwear: 4 OT Teacher [employer] Goals Prison Goals Time Frame: Apr 16, 2021 Eating (QC): 6 Oral Hygiene (QC): 6 Toileting Hygiene (QC): 6 Shower/Bathe Self (QC): 4 Upper Body Dressing (QC): 5 Lower Body Dressing (QC): 5 On/Off Footwear (QC): 6 Additional Goals: 1-Demonstrate ADL Tasks, 2-Verbalize Understanding, 3- ImproveStrength/Kris 1=Demonstrate adherence to instructed precautions during ADL tasks. 2=Patient will verbalize/demonstrate understanding of assistive devices/modifications for ADL. 3=Patient will improve strength/tolerance for activity to enable patient to perform ADL's. OT Education/Plan Problem List/Assessment Assessment: Decreased Activ Tolerance, Impaired I ADL's Discharge Recommendations Plan/Recommendations: Continue POC Therapy Discharge Recommendati: Post Acute OT Treatment Plan/Plan of Care Treatment,Training & Education: Yes Patient would benefit from OT for education, treatment and training to promote independence in ADL's, mobility, safety and/or upper extremity function for ADL's. Plan of Care: ADL Retraining, Functional Mobility, UE Funct Exercise/Act Treatment Duration: Apr 16, 2021 Frequency: 5 times per week Estimated Hrs Per Day: .25 hour per day Agreement: Yes Rehab Potential: Fair Time/GCodes Start Time: 13:50 Stop Time: 14:05 Total Time Billed (hr/min): 15 Billed Treatment Time 1, ADL BROCK BELLA OT Mar 21, 2021 14:56
--- NOTE | 2021-03-21 15:21 | ST Cognitive Linguistic Eval ---
Speech Evaluation-General Medical Diagnosis LEFT LEG WEAKNESS, ELEVATED TROPONIN Onset Date: Mar 18, 2021 Therapy Diagnosis Therapy Diagnosis: Cognitive-communication Referral Referring Physician: Dr. Card Medical History Pertinent Medical History: CAD, DM, HTN, Smoking Reviewed History: Yes Social History Current Living Status: Alone Speech PLF-Current Status Prior Level of Function Patient lives alone where she receives some assistance with her daily needs. She also has family who assist her. Subjective Patient was pleasant and cooperative with the cognitive assessment. Language Eval: Auditory Comprehends Simple Yes/No Ques: Functional Indent/Objects Multiple [place]: Functional Ident/Pics in Multiple [place]: Functional Follows 1-Step Commands: Functional Follows Complex Directions: Mild Follows General Conversations: Mild Language Eval: Verbal Language Completes Spontaneous Greeting: Functional Produces Auto, Serial Info: Functional Imitates Simple Words/Phrases: Mild Word Finding: Mild Requests Basic Needs: Functional States Basic Personal Info: Functional Expresses Complex Ideas: Mild Objective Cognitive Domain Attention: Mild Memory: Mild Problem Solving: Mild Executive Functions: Mild Composite Severity Rating: Mild Objective Formal/Standardized Tests [facility] Mental Status (UMS), subtests, informal speech tasks, patient interview, patient chart review Results Patient demonstrates cognitive/memory deficits within mild to moderate range of function. Oral Motor/Speech Production Within Normal Limits Impression Patient was admitted to the hospital due to weakness and decreased cognitive s tatus. Patient is at a mild to moderate deficit range of function. Patient's level of function based on evaluation procedures and patient interview. The patient's daughter was present for the assessment and voiced concerns about dementia and increasing difficulty with memory. The patient will receive skilled ST services with focus on safety awareness and independence. Speech Short Term Goals Short Term Goals Short Term Goals 1) The patient will complete memory tasks related to her daily needs at 80% or greater with minimal cues. 2) The patient will complete safety awareness tasks related to her daily needs at 80% or greater with minimal cues. 3) The patient will complete problem solving tasks related to her daily needs at 80% or greater with minimal cues. Speech Ensemble Member Goals [facility] Goals The patient will be able to demonstrate improved cognitive-communication abilities for decreased need for assistance. Speech-Plan Patient/Family Goals Patient/Family Goals: Patient plans on returning to her home where she lives alone. She will receive in home assistance for home needs and personal needs. Patient also has family available for assistance. Treatment Plan Speech Therapy Treatment Plan: Continue Plan of Care Treatment Duration: Mar 25, 2021 Frequency: 3 times per week Estimated Hrs Per Day: .25 hour per day Rehab Potential: Fair Barriers to Learning: Patient's decreased cognitive deficits, decline in health Pt/Family Agrees to Plan: Yes Safety Risks/Education Teaching Recipient: Patient, Family Teaching Methods: Discussion Response to Teaching: Verbalize Understanding Education Topics Provided: Safety within her room, communication of wants/needs Time Speech Therapy Time In: 15:00 Speech Therapy Time Out: 15:15 Total Billed Time: 15 Billed Treatment Time 1, LEANDER ROACH [facility] ST Mar 21, 2021 15:21
[2021-03-21] MEDS: metFORMIN 500 MG (GLUCOPHAGE) TAB PO SCH (18:21)
[2021-03-21] MEDS: ROSUVASTATIN 20 MG (CRESTOR) TABLET PO SCH (20:58)
[2021-03-21] MEDS: PRIMIDONE 50 MG TAB (MYSOLINE) PO SCH (21:01)
[2021-03-21] MEDS: ENOXAPARIN 40 MG/0.4 ML (LOVENOX) SYR SC SCH (21:02)
[2021-03-22] MEDS: LEVOTHYROXINE 125 MCG (LEVOTHROID) TABLET PO SCH (06:10)
[2021-03-22 06:42] LABS: BASOPHILS # (AUTO) 0.1 10^3/uL (0.0-0.1); BASOPHILS % (AUTO) 1 % (0-10); EOSINOPHILS # (AUTO) 0.3 10^3/uL (0.0-0.3); EOSINOPHILS % (AUTO) 4 % (0-10); HEMATOCRIT 42 % (35-52); HEMOGLOBIN 13.8 g/dL (11.5-16.0); LYMPHOCYTES # (AUTO) 2.9 10^3/uL (1.0-4.0); LYMPHOCYTES % (AUTO) 39 % (12-44); MEAN CORPUSCULAR HEMOGLOBIN 32 pg (25-34); MEAN CORPUSCULAR HGB CONC 33 g/dL (32-36); MEAN CORPUSCULAR VOLUME 97 fL (80-99); MEAN PLATELET VOLUME 9.4 fL (9.0-12.2); MONOCYTES # (AUTO) 0.7 10^3/uL (0.0-1.0); MONOCYTES % (AUTO) 9 % (0-12); NEUTROPHILS # (AUTO) 3.5 10^3/uL (1.8-7.8); NEUTROPHILS % (AUTO) 47 % (42-75); PLATELET COUNT 207 10^3/uL (130-400); WHITE BLOOD COUNT 7.4 10^3/uL (4.3-11.0)
[2021-03-22 06:56] LABS: CHLORIDE 103 MMOL/L (98-107); POTASSIUM 4.1 MMOL/L (3.6-5.0); SODIUM 138 MMOL/L (135-145)
[2021-03-22 06:57] LABS: CALCIUM 9.2 MG/DL (8.5-10.1)
[2021-03-22 06:58] LABS: GLUCOSE 108 MG/DL (70-105)
[2021-03-22 06:59] LABS: TOTAL PROTEIN 6.9 GM/DL (6.4-8.2)
[2021-03-22 07:00] LABS: BILIRUBIN,TOTAL 0.4 MG/DL (0.1-1.0); CARBON DIOXIDE 24 MMOL/L (21-32)
[2021-03-22 07:02] LABS: ALKALINE PHOSPHATASE 66 U/L (40-136); CREATININE SERUM 0.82 MG/DL (0.60-1.30); GFR ESTIMATED > 60
[2021-03-22 07:03] LABS: BUN/CREATININE RATIO 23
[2021-03-22 07:05] LABS: ALANINE AMINOTRANSFERASE 30 U/L (0-55)
--- NOTE | 2021-03-22 08:49 | Occupational Ther Daily Note ---
OT Current Status-Daily Note Subjective Pt AxO, agrees to tx while supine in bed. Pt denies pain, states somewhat fatigued. Pt denies dizziness, agrees to get up to the chair for feeding, denies toileting. Mental Status/Objective Patient Orientation: Person, Place, Situation, Normal For Age ADL-Treatment Therapy Code Descriptions/Definitions Functional [place] Measure: 0=Not Assessed/NA 4=Minimal Assistance 1=Total Assistance 5=Supervision or Setup 2=Maximal Assistance 6=Modified [place] 3=Moderate Assistance 7=Complete IndependenceSCALE: Activities may be completed with or without assistive devices. 4-Fhrbauxwwt-kiqvydy completes the activity by him/herself with no assistance from a helper. 5-Set-up or Clean-up Assistance-helper sets up or cleans up; patient completes activity. [place] assists only prior to or following the activity. 4-Supervision or Touching Assistance-helper provides verbal cues and/or touching/steadying and/or contact guard assistance as patient completes activity. Assistance may be provided throughout the activity or intermittently. 3-Partial/Moderate Assistance-helper does LESS THAN HALF the effort. [place] lifts, holds or supports trunk or limbs, but provides less than half the effort. 2-Substantial/Maximal Assistance-helper does MORE THAN HALF the effort. [place] lifts or holds trunk or limbs and provides more than half the effort. 7-Tgedqcpef-farzab does ALL the effort. Patient does none of the effort to complete the activity. Or, the assistance of 2 or more helpers is required for the patient to complete the activity. If activity was not attempted, code reason: 7-Patient Refused. 9-Not Applicable-not attempted and the patient did not perform the activity before the current illness, exacerbation or injury. 10-Not Attempted due to Environmental Limitations-(lack of equipment, weather restraints, etc.). 88-Not Attempted due to Medical Conditions or Safety Concerns. Eating (QC): 6 Oral Hygiene (QC): 7 On/Off Footwear: 4 (SBA EOB with increased time.) Toileting Hygiene (QC): 7 Toilet Transfer (QC): 7 Other Treatment Pt supine to sit with good ability. Pt sits, dons socks EOB. Pt sit to stand, denying walker use, and ambulates to chair (~4 steps) with smooth/ steady/ slow steps. Pt sits, food placed in front of pt. Pt's BP assessed in sit post activity: 165/95 with 56 BPM HR. Nursing notified. Pt expresses she does not recall/ pay attention to her BP readings. Due to high BP, pt is encouraged to complete AROM only in chair rather than resistance ex. Pt agrees, all needs met, call light in reach. Education OT Patient Education: Correct positioning, Exercise program, Home exercise program, Progress toward Goal/Update tx plan, Safety issues Teaching Recipient: Patient Teaching Methods: Demonstration, Discussion Response to Teaching: Verbalize Understanding, Return Demonstration OT Short Term Goals Short Term Goals Time Frame: Apr 02, 2021 Eatin Oral hygiene: 4 Toileting hygiene: 3 Shower/bathe self: 3 Upper body dressin Lower body dressin Putting on/taking off footwear: 4 OT [facility] Goals [employer] Operator Goals Time Frame: Apr 16, 2021 Eating (QC): 6 Oral Hygiene (QC): 6 Toileting Hygiene (QC): 6 Shower/Bathe Self (QC): 4 Upper Body Dressing (QC): 5 Lower Body Dressing (QC): 5 On/Off Footwear (QC): 6 Additional Goals: 1-Demonstrate ADL Tasks, 2-Verbalize Understanding, 3-ImproveStrength/Kris 1=Demonstrate adherence to instructed precautions during ADL tasks. 2=Patient will verbalize/demonstrate understanding of assistive devices/modifications for ADL. 3=Patient will improve strength/tolerance for activity to enable patient to per form ADL's. OT Education/Plan Problem List/Assessment Assessment: Decreased Activ Tolerance, Impaired Funct Balance, Impaired I ADL's, Impaired Self-Care Skills Discharge Recommendations Plan/Recommendations: Continue POC Therapy Discharge Recommendati: Home & Family Treatment Plan/Plan of Care Treatment,Training & Education: Yes Patient would benefit from OT for education, treatment and training to promote independence in ADL's, mobility, safety and/or upper extremity function for ADL's. Plan of Care: ADL Retraining, Functional Mobility, UE Funct Exercise/Act Treatment Duration: Apr 16, 2021 Frequency: 5 times per week Estimated Hrs Per Day: .25 hour per day Agreement: Yes Rehab Potential: Fair Time/GCodes Start Time: 08:04 Stop Time: 08:13 Total Time Billed (hr/min): 9 Billed Treatment Time 1, FA (9) DANA BARAKAT OTR Mar 22, 2021 08:48
[2021-03-22] MEDS: DOCUSATE SODIUM 100 MG (COLACE) CAP PO SCH ×2 (09:09→20:28)
[2021-03-22] MEDS: metFORMIN 500 MG (GLUCOPHAGE) TAB PO SCH ×2 (09:09→17:35)
[2021-03-22] MEDS: ASPIRIN E.C. 81 MG (ECOTRIN) TAB PO SCH (09:10)
[2021-03-22] MEDS: NICOTINE PATCH REMOVAL TP SCH (09:16)
[2021-03-22] MEDS: SENNOSIDES 8.6 MG (SENOKOT) TAB PO SCH ×2 (09:16→20:28)
[2021-03-22] MEDS: NICOTINE 21 MG (NICODERM) PATCH TD SCH (09:18)
[2021-03-22] MEDS ORDERED: BUPR150T24 PO (09:28)
[2021-03-22] MEDS ORDERED: LOSA25TA41 PO (09:28)
[2021-03-22] MEDS ORDERED: METF-865 PO (09:28)
[2021-03-22] MEDS ORDERED: RT-ALBUINH INH (09:28)
--- NOTE | 2021-03-22 09:51 | Cardiology Progress Note ---
Progress Note-Cardiology Events since last exam Date Seen by Provider: Mar 22, 2021 Time Seen by Provider: 09:49 Events since last exam We are seeing her for elevated troponin level. She walked around the unit this morning with physical therapy. Her left leg is still a little weak. She got short of breath walking in the adair. She denies chest pain, palpitations, syncope, ankle edema. Vitals Last set of Vitals Signs Vital Signs 03/18/21 03/22/21 03/22/21 03/22/21 23:54 07:38 16:00 17:47 Temp 36.2 Pulse 54 Resp 20 B/P (MAP) 142/68 (92) Pulse Ox 95 O2 Delivery Room Air O2 Flow Rate 0.00 FiO2 21 Labs Labs Laboratory Tests 03/22/21 06:18 Exam Vital Signs Vital Signs Date Time Temp Pulse Resp B/P (MAP) Pulse Ox O2 Delivery O2 Flow Rate FiO2 03/22/21 17:47 Room Air 03/22/21 16:00 36.2 54 20 142/68 (92) 95 03/22/21 07:38 0.00 03/18/21 23:54 21 Physical Exam General: Alert. No acute distress. She is obese. Eye: No xanthelasma. HENT: Normocephalic. Neck: Jugular venous pressure does not appear elevated. Respiratory: Lungs have scattered by lateral wheezes but improving. Respirations are non-labored. Breath sounds are equal. Symmetrical chest wall expansion. Cardiovascular: Normal rate. Regular rhythm. No murmur. No gallop. No edema. Gastrointestinal: Soft. Normal bowel sounds. Skin: Warm. Dry. Neurologic: Alert and oriented to person, place, time. Cranial nerves 3-11 grossly intact. Left leg weakness. Psychiatric: Cooperative. Appropriate mood & affect. Labs Laboratory Tests Test 03/22/21 06:18 03/22/21 09:15 Range/Units White Blood Count 7.4 4.3-11.0 10^3/uL Red Blood Count 4.29 3.80-5.11 10^6/uL Hemoglobin 13.8 11.5-16.0 g/dL Hematocrit 42 35-52 % Mean Corpuscular Volume 97 80-99 fL Mean Corpuscular Hemoglobin 32 25-34 pg Mean Corpuscular Hemoglobin Concent 33 32-36 g/dL Red Cell Distribution Width 12.6 10.0-14.5 % Platelet Count 207 130-400 10^3/uL Mean Platelet Volume 9.4 9.0-12.2 fL Immature Granulocyte % (Auto) 0 % Neutrophils (%) (Auto) 47 42-75 % Lymphocytes (%) (Auto) 39 12-44 % Monocytes (%) (Auto) 9 0-12 % Eosinophils (%) (Auto) 4 0-10 % Basophils (%) (Auto) 1 0-10 % Neutrophils # (Auto) 3.5 1.8-7.8 10^3/uL Lymphocytes # (Auto) 2.9 1.0-4.0 10^3/uL Monocytes # (Auto) 0.7 0.0-1.0 10^3/uL Eosinophils # (Auto) 0.3 0.0-0.3 10^3/uL Basophils # (Auto) 0.1 0.0-0.1 10^3/uL Immature Granulocyte # (Auto) 0.0 0.0-0.1 10^3/uL Sodium Level 138 135-145 MMOL/L Potassium Level 4.1 3.6-5.0 MMOL/L Chloride Level 103 98-107 MMOL/L Carbon Dioxide Level 24 21-32 MMOL/L Anion Gap 11 5-14 MMOL/L Blood Urea Nitrogen 19 H 7-18 MG/DL Creatinine 0.82 0.60-1.30 MG/DL Estimat Glomerular Filtration Rate > 60 BUN/Creatinine Ratio 23 Glucose Level 108 H 70-105 MG/DL Calcium Level 9.2 8.5-10.1 MG/DL Corrected Calcium 9.2 8.5-10.1 MG/DL Total Bilirubin 0.4 0.1-1.0 MG/DL Aspartate Amino Transf (AST/SGOT) 25 5-34 U/L Alanine Aminotransferase (ALT/SGPT) 30 0-55 U/L Alkaline Phosphatase 66 40-136 U/L Total Protein 6.9 6.4-8.2 GM/DL Albumin 4.0 3.2-4.5 GM/DL Glucometer 156 H 70-110 MG/DL Diagnosis/Problems Diagnosis/Problems (1) Troponin level elevated Assessment & Plan: She has not reported any chest discomfort prior to or during her hospitalization. 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 Her troponin levels are essentially flat. 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 This is probably a type II non-ST elevation myocardial infarction related to her possible stroke and also laying on the floor for 2 hours. Her echocardiogram from this admission showed a normal ejection fraction with no wall motion abnormalities. I recommend she continue on the present guideline directed medical therapy with aspirin, beta-ethel and statin medication. Given that her repeat head CT from today did not show any recent cerebral infarct, I will start her on clopidogrel. At some point, we may need to consider an ischemic evaluation. (2) Coronary artery disease without angina pectoris Status: Chronic Assessment & Plan: As above, she does not appear to be having any unstable angina at this time. As above, I recommend continuing guideline directed medical therapy. Given her extensive history of vascular disease, her estrogen replacement therapy has been discontinued. I would recommend she not resume this medication when she is discharged. (3) Acute left-sided weakness Assessment & Plan: Her initial and follow up head CTs did not show any acute changes. Her weakness has improved. She denies any recurrent neurologic complaints.She did not want to do the MRI due to claustrophobia. I will ask my office to set her up for a 30 day event recorder after discharge. (4) Essential hypertension Status: Chronic Assessment & Plan: Her blood pressures are better after adjusting her medications. (5) Mixed hyperlipidemia Status: Chronic Assessment & Plan: Continue statin medication. Her LDL is at target. If she does not fact have an acute stroke, we may need to intensify her antilipemic therapy. (6) Cigarette smoker Assessment & Plan: She was again encouraged to quit smoking. YOUSIF NATION JR, MD Mar 22, 2021 09:51
[2021-03-22] MEDS: PREGABALIN 50 MG (LYRICA) CAP PO SCH ×2 (09:54→20:29)
[2021-03-22] MEDS: LOSARTAN 25 MG (COZAAR) TAB PO SCH (09:55)
[2021-03-22] MEDS: meTOproloL SUCCINATE 50 MG (TOPROL XL) TAB PO SCH (09:55)
--- NOTE | 2021-03-22 10:01 | Physical Therapy Daily Note ---
PT Daily Note-Current Subjective Patient in recliner pre tx, agrees to PT, has no complaints of pain but is very drowsy. Appearance Patient in bed post tx with nurse call, phone, tray, all needs met, bed alarm on, patient notified to use nurse call if she needs to get out of bed. Mental Status Patient Orientation: Person, Place, Situation Transfers SCALE: Activities may be completed with or without assistive devices. 0-Dpzjjmcskz-yqrwqkh completes the activity by him/herself with no assistance from a helper. 5-Set-up or Clean-up Assistance-helper sets up or cleans up; patient completes activity. [place] assists only prior to or following the activity. 4-Supervision or Touching Assistance-helper provides verbal cues and/or touching/steadying and/or contact guard assistance as patient completes activity. Assistance may be provided throughout the activity or intermittently. 3-Partial/Moderate Assistance-helper does LESS THAN HALF the effort. [place] lifts, holds or supports trunk or limbs, but provides less than half the effort. 2-Substantial/Maximal Assistance-helper does MORE THAN HALF the effort. [place] lifts or holds trunk or limbs and provides more than half the effort. 3-Vzefmghwn-huaubc does ALL the effort. Patient does none of the effort to complete the activity. Or, the assistance of 2 or more helpers is required for the patient to complete the activity. If activity was not attempted, code reason: 7-Patient Refused. 9-Not Applicable-not attempted and the patient did not perform the activity be fore the current illness, exacerbation or injury. 10-Not Attempted due to Environmental Limitations-(lack of equipment, weather restraints, etc.). 88-Not Attempted due to Medical Conditions or Safety Concerns. Roll Left & Right (QC): 6 Sit to Lying (QC): 6 Sit to Stand (QC): 4 Chair/Gjq-yg-Fjrwo Xfer(QC): 4 Weight Bearing Full Weight Bearing Full Weight Bearing Gait Training Distance: 500' Walk 10 feet (QC): 4 Walk 50 ft with 2 Turns(QC): 4 Walk 150 ft (QC): 4 Gait Persons Needed: 1 Gait Assistive Device: FWW Initially patient started out being CGA with ambulation and had decreased foot clearance on the left side, she improved slightly during ambulation and was SBA and foot clearance improved slightly but was still impaired. Treatments gait training Assessment Current Status: Fair Progress improved endurance PT Short Term Goals Short Term Goals Time Frame: Apr 02, 2021 Roll Left & Right: 6 Sit to lyin Lying to sitting on side of be: 6 Sit to stand: 6 Chair/bkj-yo-jenqv transfer: 6 Walk 10 feet: 6 Walk 50 feet with two turns: 6 Walk 150 feet: 6 PT Plan Problem List Problem List: Activity Tolerance, Functional Strength, Safety, Balance, Gait, Transfer, Bed Mobility, ROM Treatment/Plan Treatment Plan: Continue Plan of Care Treatment Plan: Bed Mobility, Education, Functional Activity Kris, Functional Strength, Gait, Safety, Therapeutic Exercise, Transfers Treatment Duration: Apr 09, 2021 Frequency: 6 times per week Estimated Hrs Per Day: .25 hour per day Patient and/or Family Agrees t: Yes Safety Risks/Education Patient Education: Gait Training, Transfer Techniques, Correct Positioning, Safety Issues Teaching Recipient: Patient Teaching Methods: Demonstration, Discussion Response to Teaching: Reinforcement Needed Time/GCodes Time In: 817 Time Out: 09 Total Billed Treatment Time: 23 Total Billed Treatment 1 visit GT 23' CRUZ CORDON PT Mar 22, 2021 10:01
[2021-03-22] MEDS ORDERED: MELA5TAB14 PO (10:30)
--- NOTE | 2021-03-22 11:23 | Progress Note - Hospitalist ---
Subjective HPI/CC On Admission Date Seen by Provider: Mar 22, 2021 Time Seen by Provider: 10:00 Brooke De La Cruz is a 70-year-old female with past medical history of hypertension, hyperlipidemia, coronary artery disease, history of stroke, tobacco abuse, who presented with left leg weakness. She says this started yesterday morning. She said that her family also thought that she was slurring her speech. She denies any numbness or weakness in her upper extremities. She denies any fevers or chills. She denies any headache or vision changes. She denies any chest pain or palpitations. She denies any shortness of breath or cough. She denies any abdominal pain, nausea, vomiting, diarrhea, or constipation. She denies any dysuria or urinary symptoms. She is a current smoker. Subjective/Events-last exam Pt doing about the same today Left leg is dragging a little more today Could not do the MRI due to claustrophobia Bradycardia noted but Dr. Barakat is monitoring that, no issues Review of Systems General: Fatigue, Malaise Neurological: Weakness, Incoordination Objective Exam Vital Signs Vital Signs Date Time Temp Pulse Resp B/P (MAP) Pulse Ox O2 Delivery O2 Flow Rate FiO2 03/23/21 04:06 36.6 51 20 114/59 (77) 94 NIV CPAP 03/22/21 07:38 0.00 03/18/21 23:54 21 Capillary Refill : Less Than 3 Seconds General Appearance: No Apparent Distress, WD/WN, Chronically ill Respiratory: Lungs Clear Cardiovascular: Regular Rate, Rhythm Neurologic/Psychiatric: Alert, Oriented x3, Depressed Affect Results/Procedures Lab Laboratory Tests 03/22/21 06:18 Patient resulted labs reviewed. Imaging: Reviewed Imaging Report Assessment/Plan Assessment and Plan Assess & Plan/Chief Complaint Assessment: Left leg weakness MRI pending Sunday Possible CVA History of CVA Elevated troponin CAD Hypertension Hyperlipidemia Hypothyroidism Obesity Plan: PT and OT MRI Rehab 03/21/2021: Canceled MRI due to claustrophobia Transfer to fourth floor Monitor closely Likely will need skilled care or rehab depending on bed availability 03/22/2021: Skilled care will be needed Continue aggressive therapy Clinical Quality Measures Stroke: Date of last known well: Mar 18, 2021 JOSÉ MARIE DO Mar 22, 2021 11:23
--- NOTE | 2021-03-22 13:34 | Diagnostic Imaging Report ---
EXAMINATION: CT head without contrast. TECHNIQUE: Multiple contiguous axial images were obtained through the brain without the use of intravenous contrast. All CT scans use one or more of the following dose optimizing techniques: automated exposure control, MA and/or KvP adjustment based on patient size and exam type or iterative reconstruction. HISTORY: Left leg weakness for 4 days. Concern for stroke. COMPARISON: 03/18/2021. FINDINGS: No large acute territorial ischemia, mass, or hemorrhage. No midline shift or mass effect. Old infarcts are seen in the bilateral basal ganglia. Decreased attenuation is seen in the periventricular and subcortical white matter. The ventricles and cortical sulci are prominent. The basilar cisterns are patent and unremarkable. The orbits are normal. Paranasal sinuses are normal. Mastoid air cells are clear. No soft tissue abnormality is seen. No osseus lesions or fractures are seen. IMPRESSION: 1. No large acute territorial ischemia, mass, or hemorrhage. 2. Old lacunar infarcts in the bilateral basal ganglia. 3. Generalized parenchymal volume loss with chronic microvascular disease. Dictated by: Dictated on workstation # [id number]
--- NOTE | 2021-03-22 14:10 | Speech Therapy Daily Note ---
Speech Daily Progress Note Subjective Date Seen by Provider: Mar 22, 2021 Time Seen by Provider: 00:30 Patient was resting in her bed when I entered her room. She recognized me when I entered her room. She states she is feeling much better. Objective Patient completed memory tasks at 80% with minimal cuing. Assessment Assessment Current Status: Good Progress Treatment Plan Continue Plan of Care Speech Short Term Goals Short Term Goals Short Term Goals 1) The patient will complete memory tasks related to her daily needs at 80% or greater with minimal cues. 2) The patient will complete safety awareness tasks related to her daily needs at 80% or greater with minimal cues. 3) The patient will complete problem solving tasks related to her daily needs at 80% or greater with minimal cues. Speech Dance Critic Goals Dance Critic Goals The patient will be able to demonstrate improved cognitive-communication abilities for decreased need for assistance. Speech-Plan Patient/Family Goals Patient/Family Goals: Patient plans on returning to her home with family support. Treatment Plan Speech Therapy Treatment Plan: Continue Plan of Care Treatment Duration: Mar 25, 2021 Frequency: 3 times per week Estimated Hrs Per Day: .25 hour per day Rehab Potential: Fair Barriers to Learning: Patient's recent decline in health, cognitive deficits, confusion however is resolving well Pt/Family Agrees to Plan: Yes Safety Risks/Education Teaching Recipient: Patient Teaching Methods: Demonstration, Discussion Response to Teaching: Verbalize Understanding, Return Demonstration Education Topics Provided: Continued safety and communication Time Speech Therapy Time In: 13:00 Speech Therapy Time Out: 13:15 Total Billed Time: 15 Billed Treatment Time 1, LUZ Gutierrez Mar 22, 2021 14:10
[2021-03-22] MEDS ORDERED: CATHETER FLUSH 10 ML SYR IV PRN (16:30)
[2021-03-22] MEDS ORDERED: CLOPIDOGREL 75 MG (PLAVIX) TABLET PO NR (18:15)
[2021-03-22] MEDS: ROSUVASTATIN 20 MG (CRESTOR) TABLET PO SCH (20:28)
[2021-03-22] MEDS: PRIMIDONE 50 MG TAB (MYSOLINE) PO SCH (20:28)
[2021-03-22] MEDS: ENOXAPARIN 40 MG/0.4 ML (LOVENOX) SYR SC SCH (21:36)
[2021-03-22] MEDS: CATHETER FLUSH 10 ML SYR IV SCH (21:36)
[2021-03-23] MEDS: LEVOTHYROXINE 125 MCG (LEVOTHROID) TABLET PO SCH (06:02)
[2021-03-23] MEDS: CATHETER FLUSH 10 ML SYR IV SCH ×3 (06:03→19:56)
--- NOTE | 2021-03-23 06:06 | Progress Note - Hospitalist ---
Subjective HPI/CC On Admission Date Seen by Provider: Mar 23, 2021 Time Seen by Provider: 10:00 Brooke De La Cruz is a 70-year-old female with past medical history of hypertension, hyperlipidemia, coronary artery disease, history of stroke, tobacco abuse, who presented with left leg weakness. She says this started yesterday morning. She said that her family also thought that she was slurring her speech. She denies any numbness or weakness in her upper extremities. She denies any fevers or chills. She denies any headache or vision changes. She denies any chest pain or palpitations. She denies any shortness of breath or cough. She denies any abdominal pain, nausea, vomiting, diarrhea, or constipation. She denies any dysuria or urinary symptoms. She is a current smoker. Subjective/Events-last exam Pt doing pretty well Dragging the left leg Really wants to go home but I think itd be best if she had skilled care Family at the bedside feels like that will be the best place for her Dementia is moderate Later in the day insurance declined assisted placement and patient did not really want to go either considering a family reunion this weekend so we will plan on discharging tomorrow on home health Review of Systems General: Fatigue, Malaise Neurological: Weakness, Incoordination Objective Exam Vital Signs Vital Signs Date Time Temp Pulse Resp B/P (MAP) Pulse Ox O2 Delivery O2 Flow Rate FiO2 03/24/21 04:28 36.0 58 18 130/61 (84) 94 NIV CPAP 03/22/21 07:38 0.00 03/18/21 23:54 21 Capillary Refill : Less Than 3 Seconds General Appearance: No Apparent Distress, WD/WN, Chronically ill, Obese Respiratory: Lungs Clear, Normal Breath Sounds Cardiovascular: Regular Rate, Rhythm Neurologic/Psychiatric: Alert, Oriented x3 Results/Procedures Lab Laboratory Tests 03/23/21 05:49 Patient resulted labs reviewed. Imaging: Reviewed Imaging Report Assessment/Plan Assessment and Plan Assess & Plan/Chief Complaint Assessment: Left leg weakness MRI pending Sunday Possible CVA History of CVA Elevated troponin CAD Hypertension Hyperlipidemia Hypothyroidism Obesity Plan: PT and OT MRI Rehab 03/21/2021: Canceled MRI due to claustrophobia Transfer to fourth floor Monitor closely Likely will need skilled care or rehab depending on bed availability 03/22/2021: Skilled care will be needed Continue aggressive therapy 03/23/2021: Discharge tomorrow on home health Clinical Quality Measures Stroke: Date of last known well: Mar 18, 2021 JOSÉ MARIE DO Mar 23, 2021 06:06
[2021-03-23 06:08] LABS: BASOPHILS # (AUTO) 0.1 10^3/uL (0.0-0.1); BASOPHILS % (AUTO) 1 % (0-10); EOSINOPHILS # (AUTO) 0.2 10^3/uL (0.0-0.3); EOSINOPHILS % (AUTO) 4 % (0-10); HEMATOCRIT 42 % (35-52); HEMOGLOBIN 13.5 g/dL (11.5-16.0); LYMPHOCYTES # (AUTO) 1.1 10^3/uL (1.0-4.0); LYMPHOCYTES % (AUTO) 17 % (12-44); MEAN CORPUSCULAR HEMOGLOBIN 32 pg (25-34); MEAN CORPUSCULAR HGB CONC 33 g/dL (32-36); MEAN CORPUSCULAR VOLUME 97 fL (80-99); MEAN PLATELET VOLUME 9.3 fL (9.0-12.2); MONOCYTES # (AUTO) 0.6 10^3/uL (0.0-1.0); MONOCYTES % (AUTO) 9 % (0-12); NEUTROPHILS # (AUTO) 4.4 10^3/uL (1.8-7.8); NEUTROPHILS % (AUTO) 69 % (42-75); PLATELET COUNT 213 10^3/uL (130-400); WHITE BLOOD COUNT 6.4 10^3/uL (4.3-11.0)
[2021-03-23 06:31] LABS: CHLORIDE 104 MMOL/L (98-107); POTASSIUM 4.1 MMOL/L (3.6-5.0); SODIUM 140 MMOL/L (135-145)
[2021-03-23 06:32] LABS: CALCIUM 9.2 MG/DL (8.5-10.1)
[2021-03-23 06:33] LABS: GLUCOSE 103 MG/DL (70-105); TOTAL PROTEIN 6.7 GM/DL (6.4-8.2)
[2021-03-23 06:34] LABS: CARBON DIOXIDE 26 MMOL/L (21-32)
[2021-03-23 06:35] LABS: BILIRUBIN,TOTAL 0.4 MG/DL (0.1-1.0)
[2021-03-23 06:36] LABS: ALKALINE PHOSPHATASE 65 U/L (40-136)
[2021-03-23 06:37] LABS: CREATININE SERUM 0.87 MG/DL (0.60-1.30); GFR ESTIMATED > 60
[2021-03-23 06:38] LABS: BUN/CREATININE RATIO 21
[2021-03-23 06:39] LABS: ALANINE AMINOTRANSFERASE 30 U/L (0-55)
[2021-03-23] MEDS: NICOTINE 21 MG (NICODERM) PATCH TD SCH (08:32)
[2021-03-23] MEDS: ASPIRIN E.C. 81 MG (ECOTRIN) TAB PO SCH (08:32)
[2021-03-23] MEDS: PREGABALIN 50 MG (LYRICA) CAP PO SCH ×2 (08:32→19:53)
[2021-03-23] MEDS: buPROPion SR 150 MG (WELLBUTRIN SR) TAB PO SCH (08:32)
[2021-03-23] MEDS: metFORMIN 500 MG (GLUCOPHAGE) TAB PO SCH ×2 (08:33→17:57)
[2021-03-23] MEDS: CLOPIDOGREL 75 MG (PLAVIX) TABLET PO SCH (08:33)
[2021-03-23] MEDS: SENNOSIDES 8.6 MG (SENOKOT) TAB PO SCH ×2 (08:33→19:53)
[2021-03-23] MEDS: LOSARTAN 25 MG (COZAAR) TAB PO SCH ×2 (08:33→08:35)
[2021-03-23] MEDS: DOCUSATE SODIUM 100 MG (COLACE) CAP PO SCH ×2 (08:33→19:53)
[2021-03-23] MEDS: NICOTINE PATCH REMOVAL TP SCH (08:36)
[2021-03-23] MEDS: meTOproloL SUCCINATE 50 MG (TOPROL XL) TAB PO SCH (08:36)
--- NOTE | 2021-03-23 09:27 | Physical Therapy Daily Note ---
PT Daily Note-Current Subjective Patient sitting EOB pre tx, agrees to PT, has no complaints of pain. Appearance Patient sitting EOB post tx with nurse call, phone, tray, visiting with family in room. Mental Status Patient Orientation: Normal For Age Transfers SCALE: Activities may be completed with or without assistive devices. 2-Iumjpgmeql-mllvfng completes the activity by him/herself with no assistance from a helper. 5-Set-up or Clean-up Assistance-helper sets up or cleans up; patient completes activity. [place] assists only prior to or following the activity. 4-Supervision or Touching Assistance-helper provides verbal cues and/or touching/steadying and/or contact guard assistance as patient completes activity. Assistance may be provided throughout the activity or intermittently. 3-Partial/Moderate Assistance-helper does LESS THAN HALF the effort. [place] lifts, holds or supports trunk or limbs, but provides less than half the effort. 2-Substantial/Maximal Assistance-helper does MORE THAN HALF the effort. [place] lifts or holds trunk or limbs and provides more than half the effort. 2-Uifsntatw-vzjltt does ALL the effort. Patient does none of the effort to complete the activity. Or, the assistance of 2 or more helpers is required for the patient to complete the activity. If activity was not attempted, code reason: 7-Patient Refused. 9-Not Applicable-not attempted and the patient did not perform the activity before the current illness, exacerbation or injury. 10-Not Attempted due to Environmental Limitations-(lack of equipment, weather restraints, etc.). 88-Not Attempted due to Medical Conditions or Safety Concerns. Sit to Stand (QC): 4 Chair/Sfg-zp-Uejko Xfer(QC): 4 SBA Weight Bearing Full Weight Bearing Full Weight Bearing Gait Training Distance: 1000' Walk 10 feet (QC): 4 Walk 50 ft with 2 Turns(QC): 4 Walk 150 ft (QC): 4 Gait Assistive Device: FWW SBA, slow but steady ambulation, still has decreased foot clearance on the left side but doesn't necessarily slide her foot. Treatments transfers, ambulation Assessment Current Status: Fair Progress improving endurance, now is SBA with mobility PT Short Term Goals Short Term Goals Time Frame: Apr 02, 2021 Roll Left & Right: 6 Sit to lyin Lying to sitting on side of be: 6 Sit to stand: 6 Chair/oxg-qf-ammdl transfer: 6 Walk 10 feet: 6 Walk 50 feet with two turns: 6 Walk 150 feet: 6 PT Plan Problem List Problem List: Activity Tolerance, Functional Strength, Safety, Balance, Gait, Transfer, Bed Mobility Treatment/Plan Treatment Plan: Continue Plan of Care Treatment Plan: Bed Mobility, Education, Functional Activity Kris, Functional Strength, Gait, Safety, Therapeutic Exercise, Transfers Treatment Duration: Apr 09, 2021 Frequency: 6 times per week Estimated Hrs Per Day: .25 hour per day Patient and/or Family Agrees t: Yes Safety Risks/Education Patient Education: Gait Training, Transfer Techniques, Correct Positioning, Safety Issues Teaching Recipient: Patient Teaching Methods: Demonstration, Discussion Response to Teaching: Reinforcement Needed Time/GCodes Time In: 0847 Time Out: 906 Total Billed Treatment Time: 20 Total Billed Treatment 1 visit GT 20' CRUZ CORDON PT Mar 23, 2021 09:27
--- NOTE | 2021-03-23 09:59 | Cardiology Progress Note ---
Progress Note-Cardiology Events since last exam Date Seen by Provider: Mar 23, 2021 Time Seen by Provider: 09:58 Events since last exam We are seeing her due to elevated troponin and possible stroke. Her left leg continues to be weak. If she is not careful when she is walking, her foot will drag. On the other hand, she has been walking in the hallways a fair amount. Her breathing is about baseline. She denies chest discomfort, palpitations, or syncope. No change in her chronic, mild ankle edema. Vitals Last set of Vitals Signs Vital Signs 03/18/21 03/22/21 03/23/21 23:54 07:38 15:58 Temp 36.7 Pulse 57 Resp 18 B/P (MAP) 139/60 (86) Pulse Ox 94 O2 Delivery Room Air O2 Flow Rate 0.00 FiO2 21 Labs Labs Laboratory Tests 03/23/21 05:49 Exam Vital Signs Vital Signs Date Time Temp Pulse Resp B/P (MAP) Pulse Ox O2 Delivery O2 Flow Rate FiO2 03/23/21 15:58 36.7 57 18 139/60 (86) 94 Room Air 03/22/21 07:38 0.00 03/18/21 23:54 21 Physical Exam General: Alert. No acute distress. She is obese. Eye: No xanthelasma. HENT: Normocephalic. Neck: Jugular venous pressure does not appear elevated. Respiratory: Lungs have scattered wheezes but improving. Respirations are non- labored. Breath sounds are equal. Symmetrical chest wall expansion. Cardiovascular: Normal rate. Regular rhythm. No murmur. No gallop. No edema. Gastrointestinal: Soft. Normal bowel sounds. Skin: Warm. Dry. Neurologic: Alert and oriented to person, place, time. Cranial nerves 3-11 grossly intact. Left leg weakness, particularly below the knee. Psychiatric: Cooperative. Appropriate mood & affect. Labs Laboratory Tests Test 03/23/21 05:49 Range/Units White Blood Count 6.4 4.3-11.0 10^3/uL Red Blood Count 4.26 3.80-5.11 10^6/uL Hemoglobin 13.5 11.5-16.0 g/dL Hematocrit 42 35-52 % Mean Corpuscular Volume 97 80-99 fL Mean Corpuscular Hemoglobin 32 25-34 pg Mean Corpuscular Hemoglobin Concent 33 32-36 g/dL Red Cell Distribution Width 12.5 10.0-14.5 % Platelet Count 213 130-400 10^3/uL Mean Platelet Volume 9.3 9.0-12.2 fL Immature Granulocyte % (Auto) 0 % Neutrophils (%) (Auto) 69 42-75 % Lymphocytes (%) (Auto) 17 12-44 % Monocytes (%) (Auto) 9 0-12 % Eosinophils (%) (Auto) 4 0-10 % Basophils (%) (Auto) 1 0-10 % Neutrophils # (Auto) 4.4 1.8-7.8 10^3/uL Lymphocytes # (Auto) 1.1 1.0-4.0 10^3/uL Monocytes # (Auto) 0.6 0.0-1.0 10^3/uL Eosinophils # (Auto) 0.2 0.0-0.3 10^3/uL Basophils # (Auto) 0.1 0.0-0.1 10^3/uL Immature Granulocyte # (Auto) 0.0 0.0-0.1 10^3/uL Sodium Level 140 135-145 MMOL/L Potassium Level 4.1 3.6-5.0 MMOL/L Chloride Level 104 98-107 MMOL/L Carbon Dioxide Level 26 21-32 MMOL/L Anion Gap 10 5-14 MMOL/L Blood Urea Nitrogen 18 7-18 MG/DL Creatinine 0.87 0.60-1.30 MG/DL Estimat Glomerular Filtration Rate > 60 BUN/Creatinine Ratio 21 Glucose Level 103 70-105 MG/DL Calcium Level 9.2 8.5-10.1 MG/DL Corrected Calcium 9.2 8.5-10.1 MG/DL Total Bilirubin 0.4 0.1-1.0 MG/DL Aspartate Amino Transf (AST/SGOT) 23 5-34 U/L Alanine Aminotransferase (ALT/SGPT) 30 0-55 U/L Alkaline Phosphatase 65 40-136 U/L Total Protein 6.7 6.4-8.2 GM/DL Albumin 4.0 3.2-4.5 GM/DL Diagnosis/Problems Diagnosis/Problems (1) Troponin level elevated Assessment & Plan: She has not reported any chest discomfort prior to or during her hospitalization. 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 Her troponin levels are essentially flat. 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 This is probably a type II non-ST elevation myocardial infarction related to her possible stroke and also laying on the floor for 2 hours. Her echocardiogram from this admission showed a normal ejection fraction with no wall motion abnormalities. I recommend she continue on the present guideline directed medical therapy with aspirin, clopidogrel, beta-ethel and statin medication. (2) Coronary artery disease without angina pectoris Status: Chronic Assessment & Plan: As above, she does not appear to be having any unstable angina at this time. As above, I recommend continuing guideline directed medical therapy. Given her extensive history of vascular disease, her estrogen replacement therapy has been discontinued. I would recommend she not resume this medication when she is discharged. (3) Acute left-sided weakness Assessment & Plan: Her initial and follow up head CTs did not show any acute changes. Her weakness has improved. She denies any recurrent neurologic complaints. She did not want to do the MRI due to claustrophobia. I will have my office set her up for a 30 day event recorder after discharge. (4) Essential hypertension Status: Chronic Assessment & Plan: Her blood pressures are better after adjusting her medications. I would rather let her blood pressure run a little high for the time being given her possible stroke/TIA. (5) Mixed hyperlipidemia Status: Chronic Assessment & Plan: Continue statin medication. Her LDL is at target. (6) Cigarette smoker Assessment & Plan: She was again encouraged to quit smoking. YOUSIF NATION JR, MD Mar 23, 2021 09:59
--- NOTE | 2021-03-23 14:15 | Occupational Ther Daily Note ---
OT Current Status-Daily Note Subjective No pain reported. Mental Status/Objective Patient Orientation: Person, Place ADL-Treatment Therapy Code Descriptions/Definitions Functional [place] Measure: 0=Not Assessed/NA 4=Minimal Assistance 1=Total Assistance 5=Supervision or Setup 2=Maximal Assistance 6=Modified [place] 3=Moderate Assistance 7=Complete IndependenceSCALE: Activities may be completed with or without assistive devices. 1-Esugfsxley-tkeniyf completes the activity by him/herself with no assistance from a helper. 5-Set-up or Clean-up Assistance-helper sets up or cleans up; patient completes activity. [place] assists only prior to or following the activity. 4-Supervision or Touching Assistance-helper provides verbal cues and/or touching/steadying and/or contact guard assistance as patient completes activity. Assistance may be provided throughout the activity or intermittently. 3-Partial/Moderate Assistance-helper does LESS THAN HALF the effort. [place] lifts, holds or supports trunk or limbs, but provides less than half the effort. 2-Substantial/Maximal Assistance-helper does MORE THAN HALF the effort. [place] lifts or holds trunk or limbs and provides more than half the effort. 4-Xpbqjpruz-ulhpci does ALL the effort. Patient does none of the effort to complete the activity. Or, the assistance of 2 or more helpers is required for the patient to complete the activity. If activity was not attempted, code reason: 7-Patient Refused. 9-Not Applicable-not attempted and the patient did not perform the activity before the current illness, exacerbation or injury. 10-Not Attempted due to Environmental Limitations-(lack of equipment, weather restraints, etc.). 88-Not Attempted due to Medical Conditions or Safety Concerns. Eating (QC): 6 Oral Hygiene (QC): 6 (Reported by pt.) Shower/Bathe Self (QC): 5 (Pt. had just finished shower. Daughter and pt's sister in room. Both state pt. independently showered after set up.) Upper Body Dressing (QC): 5 (Pt. donned shirt after set up. (Shirt retreived for her.)) Lower Body Dressing (QC): 5 (OT observed pt. don pants after they were retrieved for her.) On/Off Footwear: 6 Toileting Hygiene (QC): 6 (Reported by pt.) Toilet Transfer (QC): 4 (SBA for safety) Other Treatment Pt. had just finished showering and was dressing self when OT entered room. Spoke with pt., daughter, and pt's sister regarding return home and specific needs, safety concerns. Daughter reports that she will be staying with pt. for at least a month at discharge. Pt. and family educated in techniques/strategies to make return home safer when this does occur. Educated in removing all throw rugs and tripping hazards. Pt. educated to keep phone on her at all times, including possibly wearing a greta pack. Daughter reports that she thought abou t buying a runners pouch for this very reason for pt. to wear and keep phone. Pt. educated about grocery delivery, and family to explore possible delivery options in pt's town. OT suggests using night lights for safety at night when using the bathroom, but pt. does not want this, as she won't sleep well. Sister suggests wearing eye covering to keep out the light, or utilizing her lamp. Pt.'s daughter does state that her main concern is that pt. does not have much room in her bedroom between her wall and her bed. She suggested to pt. to get small bed. Pt. currently has Jarred. OT educates that this can be good and bad thing. Bad being less space for maneuvering in room, and good being that no space to fall if she were to have issues getting up in night. Daughter to observe this at discharge. Pt. currently demonstrating ability to don clothing, bathe self, and likely is at baseline level with functional ADLs. No further OT needs at this time in hospital setting. Education OT Patient Education: Correct positioning, Modified ADL techniques, Progress toward Goal/Update tx plan, Purpose of tx/functional activities, Reviewed precautions, Rehab process, Transfer techniques Teaching Recipient: Patient, Family Teaching Methods: Demonstration, Discussion Response to Teaching: Verbalize Understanding, Return Demonstration OT Short Term Goals Short Term Goals Time Frame: Apr 02, 2021 Eatin Oral hygiene: 4 Toileting hygiene: 3 Shower/bathe self: 3 Upper body dressin Lower body dressin Putting on/taking off footwear: 4 OT Machinist 2Nd Shift Goals Prison Goals Time Frame: Apr 16, 2021 Eating (QC): 6 Oral Hygiene (QC): 6 Toileting Hygiene (QC): 6 Shower/Bathe Self (QC): 4 Upper Body Dressing (QC): 5 Lower Body Dressing (QC): 5 On/Off Footwear (QC): 6 Additional Goals: 1-Demonstrate ADL Tasks, 2-Verbalize Understanding, 3- ImproveStrength/Kris 1=Demonstrate adherence to instructed precautions during ADL tasks. 2=Patient will verbalize/demonstrate understanding of assistive devices/modifications for ADL. 3=Patient will improve strength/tolerance for activity to enable patient to perform ADL's. OT Education/Plan Problem List/Assessment Assessment: Decreased Activ Tolerance Discharge Recommendations Plan/Recommendations: Discontinue OT Therapy Discharge Recommendati: Home & Family Treatment Plan/Plan of Care Plan of Care: OTHER Treatment Duration: Mar 23, 2021 Frequency: 1 time per week Estimated Hrs Per Day: .25 hour per day Agreement: Yes Rehab Potential: Good Time/GCodes Start Time: 10:40 Stop Time: 10:54 Total Time Billed (hr/min): 14 Billed Treatment Time 1, ADL BROCK BELLA OT Mar 23, 2021 14:15
[2021-03-23] MEDS: ROSUVASTATIN 20 MG (CRESTOR) TABLET PO SCH (19:53)
[2021-03-23] MEDS: PRIMIDONE 50 MG TAB (MYSOLINE) PO SCH (19:53)
[2021-03-23] MEDS: ENOXAPARIN 40 MG/0.4 ML (LOVENOX) SYR SC SCH (22:20)
[2021-03-24] MEDS: LEVOTHYROXINE 125 MCG (LEVOTHROID) TABLET PO SCH (06:00)
[2021-03-24] MEDS: CATHETER FLUSH 10 ML SYR IV SCH (06:03)
[2021-03-24] MEDS ORDERED: METO50TA7 PO (06:25)
[2021-03-24] MEDS ORDERED: PREG50CA2 PO (06:25)
[2021-03-24] MEDS ORDERED: CLOP75TA28 PO (06:25)
--- NOTE | 2021-03-24 06:26 | D/C HH Face to Face Order ---
D/C Face to Face Orders Reconcile Patient Problems Problems Reviewed?: Yes Instructions for Patient Home Health Patient Instructions/FollowUp: [facility] in 1 week Physician to follow Patient: [facility] Discharge Diet for Home: No Restrictions Patient Problems: Extended stroke Patient Data-Allergies,Ht & Wt Patient Allergies: Coded Allergies: Sulfa (Sulfonamide Antibiotics) (Verified Allergy, Unknown, 05/01/19) Height (Feet): 5 Height (Inches): 8.00 Weight (Pounds): 236 Home Health Need/Face to Face Date of Face to Face: Mar 24, 2021 Clinical Findings: Generalized weakness and fatigue, Instability, Muscle weakness I have seen Pt [id number]: Yes Discharged To: Home Diagnosis/Conditions: Stroke Patient is Homebound due to: CognItive deficits, Muscle weakness Homebound Status Due to the above stated illness, injury or surgical procedure (medical condition or diagnosis) and associated clinical findings, the patient is homebound because of his/her inability to leave home except with aid of a supportive device and/or person AND leaving the home requires a considerable and taxing effort or is medically contraindicated. Pt req the following assistanc: Walker Home Health Nursing Orders Home Health Services Order: Nursing Services, Certified Registered Dental Assistant-Evaluate & Treat, Physical Therapy-Evaluate & Treat Home Health Infusion Therapy Line Start Date: Mar 18, 2021 Certify Stmt I certify that this patient is under my care and that I, a nurse practitioner or a physician; a drafter assistant working with me, had a face to face encounter that - meets the physician face to face encounter requirements with this patient as dated. JOSÉ MARIE DO Mar 24, 2021 06:26
--- NOTE | 2021-03-24 06:26 | Discharge Summary ---
Discharge Summary Hospital Course Was the Problem List Reviewed?: Yes Problems/Dx: (1) Troponin level elevated (2) Coronary artery disease without angina pectoris Status: Chronic (3) Acute left-sided weakness (4) Essential hypertension Status: Chronic (5) Mixed hyperlipidemia Status: Chronic (6) Cigarette smoker Hospital Course Date of Admission: Mar 18, 2021 at 15:56 Admission Diagnosis : Family Physician/Provider: Mariana Bowers Aprn Date of Discharge: 03/24/21 Discharge Diagnosis: Left-sided weakness acute on chronic from prior CVA suspected new CVA but MRI unable to be performed due to claustrophobia Hospital Course: Hospital Course: Pt had an uneventful hospital course for six days. She was admitted for weakness. She had a hx of a smoke, she continues to smoke. Plavix was restarted, she could not undergo MRI due to claustrophobia so blood pressure remained stable, bradycardia managed by cardiology and pt was deemed stable for DC with home health. Labs and Pending Lab Test: Home Meds Active Lyrica (Pregabalin) 50 Mg Capsule 50 Mg PO BID Metoprolol Succinate 50 Mg Tab.er.24h 50 Mg PO DAILY Clopidogrel (Clopidogrel Bisulfate) 75 Mg Tablet 75 Mg PO DAILY Reported Melatonin 5 Mg Tablet 5 Mg PO HS Metformin HCl ER (Metformin HCl) 500 Mg Tab.er.24h 500 Mg PO BID Losartan Potassium 25 Mg Tablet 25 Mg PO DAILY Proventil Hfa (Albuterol Sulfate) 6.7 Gm Hfa.aer.ad 1 Puff INH Q4H PRN Bupropion Xl (Bupropion HCl) 150 Mg Tab.er.24h 150 Mg PO DAILY [complete Keto] 1 PO HS Metoprolol Succinate 25 Mg Tab.er.24h 25 Mg PO DAILY Hydrocodone-Acetamin 10-325 mg (Hydrocodone/Acetaminophen) 1 Each Tablet 1 Each PO BID PRN PRN Cyclobenzaprine HCl 5 Mg Tablet 5 Mg PO HS PRN Estradiol Tablet (Estradiol) 1 Mg Tablet 1 Mg PO HS Aspirin EC (Aspirin) 81 Mg Tablet.dr 81 Mg PO DAILY Meloxicam 15 Mg Tablet 15 Mg PO HS Citalopram HBr (Citalopram Hydrobromide) 40 Mg Tablet 40 Mg PO HS Levothyroxine Sodium 125 Mcg Tablet 125 Mcg PO DAILY Rosuvastatin Calcium 20 Mg Tablet 20 Mg PO HS Mysoline (Primidone) 50 Mg Tablet 50 Mg PO HS Assessment/Pt Instructions [facility] in 1 week Discharge Planning: <30 minutes discharge planning Discharge Instructions Discharge Diet: Cardiac Diet Activity as Tolerated: Yes Discharge Physical Examination Vital Signs Vital Signs Date Time Temp Pulse Resp B/P (MAP) Pulse Ox O2 Delivery O2 Flow Rate FiO2 03/24/21 04:28 36.0 58 18 130/61 (84) 94 NIV CPAP 03/22/21 07:38 0.00 03/18/21 23:54 21 General Appearance: No Apparent Distress, WD/WN Respiratory: Lungs Clear Cardiovascular: Regular Rate, Rhythm Neurologic/Psychiatric: Alert, Oriented x3, No Motor/Sensory Deficits (Minimal left-sided weakness) Allergies: Coded Allergies: Sulfa (Sulfonamide Antibiotics) (Verified Allergy, Unknown, 05/01/19) Discharge Summary Date of Admission Mar 18, 2021 at 15:56 Date of Discharge Discharge Date: Mar 24, 2021 Admission Diagnosis Left leg weakness Discharge Diagnosis Assessment: Left leg weakness MRI pending Sunday Possible CVA History of CVA Elevated troponin CAD Hypertension Hyperlipidemia Hypothyroidism Obesity Plan: PT and OT MRI Rehab 03/21/2021: Canceled MRI due to claustrophobia Transfer to fourth floor Monitor closely Likely will need skilled care or rehab depending on bed availability 03/22/2021: Skilled care will be needed Continue aggressive therapy 03/23/2021: Discharge tomorrow on home health (1) Troponin level elevated Assessment & Plan: She has not reported any chest discomfort prior to or during her hospitalization. 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 Her troponin levels are essentially flat. 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 This is probably a type II non-ST elevation myocardial infarction related to her possible stroke and also laying on the floor for 2 hours. Her echocardiogram from this admission showed a normal ejection fraction with no wall motion abnormalities. I recommend she continue on the present guideline directed medical therapy with aspirin, clopidogrel, beta-ethel and statin medication. (2) Coronary artery disease without angina pectoris Status: Chronic Assessment & Plan: As above, she does not appear to be having any unstable angina at this time. As above, I recommend continuing guideline directed medical therapy. Given her extensive history of vascular disease, her estrogen replacement therapy has been discontinued. I would recommend she not resume this medication when she is discharged. (3) Acute left-sided weakness Assessment & Plan: Her initial and follow up head CTs did not show any acute changes. Her weakness has improved. She denies any recurrent neurologic complaints. She did not want to do the MRI due to claustrophobia. I will have my office set her up for a 30 day event recorder after discharge. (4) Essential hypertension Status: Chronic Assessment & Plan: Her blood pressures are better after adjusting her medications. I would rather let her blood pressure run a little high for the time being given her possible stroke/TIA. (5) Mixed hyperlipidemia Status: Chronic Assessment & Plan: Continue statin medication. Her LDL is at target. (6) Cigarette smoker Assessment & Plan: She was again encouraged to quit smoking. Clinical Quality Measures Stroke: Date of last known well: Mar 18, 2021 JOSÉ MARIE DO Mar 24, 2021 06:26
[2021-03-24] MEDS: buPROPion SR 150 MG (WELLBUTRIN SR) TAB PO SCH (08:20)
[2021-03-24] MEDS: ASPIRIN E.C. 81 MG (ECOTRIN) TAB PO SCH (08:21)
[2021-03-24] MEDS: CLOPIDOGREL 75 MG (PLAVIX) TABLET PO SCH (08:21)
[2021-03-24] MEDS: LOSARTAN 25 MG (COZAAR) TAB PO SCH ×2 (08:21)
[2021-03-24] MEDS: metFORMIN 500 MG (GLUCOPHAGE) TAB PO SCH (08:21)
[2021-03-24] MEDS: SENNOSIDES 8.6 MG (SENOKOT) TAB PO SCH (08:21)
[2021-03-24] MEDS: DOCUSATE SODIUM 100 MG (COLACE) CAP PO SCH (08:21)
[2021-03-24] MEDS: PREGABALIN 50 MG (LYRICA) CAP PO SCH (08:21)
[2021-03-24] MEDS: NICOTINE PATCH REMOVAL TP SCH (08:22)
[2021-03-24] MEDS: NICOTINE 21 MG (NICODERM) PATCH TD SCH (08:22)
[2021-03-24] MEDS: meTOproloL SUCCINATE 50 MG (TOPROL XL) TAB PO SCH (08:22)
[2021-03-24] MEDS ORDERED: MTP25TSR PO (09:36)
[2021-03-24 12:35] VITALS: BP 144/75
--- NOTE | 2021-03-24 12:37 | Progress Note - Cardiology ---
Cardiology SOAP Progress Note Subjective: No cp or palp or syncope No shortness of breath at rest No n/v/d She denies any focal weakness Objective: I&O/Vital Signs 03/24/21 03/24/21 03/24/21 04:28 08:00 08:14 Temp 36.0 36.2 Pulse 58 52 Resp 18 18 B/P (MAP) 130/61 (84) 144/75 (98) Pulse Ox 94 93 O2 Delivery NIV CPAP Room Air Room Air 03/24/21 00:00 Intake Total 1760 ml Output Total 1350 ml Balance 410 ml Weight (Pounds): 236 Weight (Calculated Kilograms): 107.003483 Constitutional: AAO x 3, well-developed, well-nourished Respiratory: No accessory muscle use; other (good bilateral air entry) Cardiovascular: regular rate-rhythm, S1 and S2, systolic murmur (faint MICK at card base) Gastrointestional: No tender; soft; No guarding, No rebound; audible bowel sounds Extremities: No clubbing, No cyanosis, No significant edema Neurologic/Psychiatric: oriented x 3, other (moves all limbs equally) Skin: No rash on exposed areas, No ulcerations on exposed areas A/P: Assessment: (1) Troponin level elevated Assessment & Plan: She has not reported any chest discomfort prior to or during her hospitalization. 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 Her troponin levels are essentially flat. 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 This is probably a type II non-ST elevation myocardial infarction related to her possible stroke and also laying on the floor for 2 hours. Her echocardiogram from this admission showed a normal ejection fraction with no wall motion abnormalities. I recommend she continue on the present guideline directed medical therapy with aspirin, clopidogrel, beta-ethel and statin medication. (2) Coronary artery disease without angina pectoris Status: Chronic Assessment & Plan: As above, she does not appear to be having any unstable angina at this time. As above, I recommend continuing guideline directed medical therapy. Given her extensive history of vascular disease, her estrogen replac ement therapy has been discontinued. I would recommend she not resume this medication when she is discharged. Advised outpatient f/u with Dr Murrieta, her teacher physically impaired (3) Acute left-sided weakness Assessment & Plan: Her initial and follow up head CTs did not show any acute changes. Her weakness has improved. She denies any recurrent neurologic complaints. She did not want to do the MRI due to claustrophobia. (4) Essential hypertension Status: Chronic Assessment & Plan: Her blood pressures are better after adjusting her med ications. I would rather let her blood pressure run a little high for the time being given her possible stroke/TIA. (5) Mixed hyperlipidemia Status: Chronic Assessment & Plan: Continue statin medication. Her LDL is at target. (6) Cigarette smoker Assessment & Plan: She was again encouraged to quit smoking. Plan: * I interviewed and examined her and reviewed her records * Assessment and plan are summarized above * I answered her CV-related questions * Outpt f/u is adivsed with Dr Murrieta within 1-2 weeks Clinical Quality Measures Stroke: Date of last known well: Mar 18, 2021 JASON HE MD FACP FAC CCDS Mar 24, 2021 12:37
== END 2021-03-24 11:00 | disposition home health service (06) ==
LOC: EDUNIT# 13:54 → ER 13:57 → UNDOADMOB 15:56 → CSD 15:56 → 4TH 03-21 17:45 → UNDODISOB 03-24 13:22
PROVIDERS: ADMIT Internal Medicine; ATTEND Internal Medicine
DX: I25.10 Atherosclerotic heart disease of native coronary artery without angina pectoris (principal); I10 Essential (primary) hypertension; R53.1 Weakness; R77.8 Other specified abnormalities of plasma proteins; E78.2 Mixed hyperlipidemia; E03.9 Hypothyroidism, unspecified; E66.9 Obesity, unspecified; Z68.36 Body mass index [BMI] 36.0-36.9, adult; E78.00 Pure hypercholesterolemia, unspecified; E11.9 Type 2 diabetes mellitus without complications; Z79.890 Hormone replacement therapy; F17.210 Nicotine dependence, cigarettes, uncomplicated; Z79.899 Other long term (current) drug therapy; Z79.82 Long term (current) use of aspirin; Z86.73 Personal history of transient ischemic attack (TIA), and cerebral infarction without residual deficits
CPT/HCPCS: 70450 ×2; 71045; 80053 ×5; 80061; 81000; 82947 ×2; 84484 ×2; 85025 ×5; 85379; 85610; 85730; 92507 ×2; 92523; 93005 ×3; 93041; 93306; 93880; 93971; 97116 ×3; 97162; 97167; 97530 ×2; 97535 ×2; 99284; G0378; 36415

== ENCOUNTER 2021-05-04 21:12 | Emergency (ER) | payer MEDICARE ==
[~2021-05-04] VITALS: Ht 175 cm; Wt 108.7 kg
[~2021-05-04 21:12] MED LIST changes: +BUPR150T24 PO; +CLOP75TA28 PO; +CYCL5TAB PO; +HYDR-3820 PO; +LACT-228 PO; +LOSA25TA41 PO; +MELA5TAB14 PO; +METF-865 PO; +METO50TA7 PO; +MTP25TSR PO; +PREG50CA2 PO; +PREG50CA65 PO; +RT-ALBUINH INH; +[UNRECOGNIZED DRUG - CODE] MC; +[UNRECOGNIZED DRUG - OTHER] PO
--- NOTE | 2021-05-04 21:35 | ED Fall/Injury ---
General Chief Complaint: Trauma-Non Activation Stated Complaint: FALL Nursing Triage Note: Pt awake, alert, oriented. Ambulated from waiting room to ER 2 without difficulty. Pt reports falling approx 1 hour ago et hitting back of head on tree stump. Mechanical, ground-level fall. Denies LOC. Reports feeling off-balance, but states that she always has d/t history of multiple strokes. Denies headache. Airway intact. Respirations even et unlabored. Skin warm, dry, appropriate for ethnicity. No sx of acute distress. Source: patient Exam Limitations: no limitations History of Present Illness Date Seen by Provider: May 04, 2021 Time Seen by Provider: 21:25 Initial Comments 70-year-old female presents after a fall this evening, she was outdoors and fell in the driveway hitting her head on a tree stump. Denies loss of consciousness, feeling dazed or confused. She was helped up by a neighbor who saw her fall. She denies headache, but does have a lump on the back of her head, denies neck pain, but is having some upper back pain. Denies weakness or loss of motion or pain of extremities. Asked if she took anything for pain, she says, no it doesn't hurt that bad. Allergies and Home Medications Allergies Coded Allergies: Sulfa (Sulfonamide Antibiotics) (Verified Allergy, Unknown, 05/01/19) Home Medications Albuterol Sulfate 6.7 Gm Hfa.aer.ad, 1 PUFF INH Q4H PRN for SHORTNESS OF BREATH, (Reported) Aspirin 81 Mg Tablet.dr, 81 MG PO DAILY, (Reported) Bupropion HCl 150 Mg Tab.er.24h, 150 MG PO DAILY, (Reported) Citalopram Hydrobromide 40 Mg Tablet, 40 MG PO HS, (Reported) Clopidogrel Bisulfate 75 Mg Tablet, 75 MG PO DAILY Prescribed by: JOSÉ MARIE on 03/24/21 0625 Cyclobenzaprine HCl 5 Mg Tablet, 5 MG PO HS PRN for MUSCLE SPASMS, (Reported) Estradiol 1 Mg Tablet, 1 MG PO HS, (Reported) Hydrocodone/Acetaminophen 1 Each Tablet, 1 EACH PO BID PRN PRN for PAIN-MILD (1- 4), (Reported) Levothyroxine Sodium 125 Mcg Tablet, 125 MCG PO DAILY, (Reported) Losartan Potassium 25 Mg Tablet, 25 MG PO DAILY, (Reported) Melatonin 5 Mg Tablet, 5 MG PO HS, (Reported) Meloxicam 15 Mg Tablet, 15 MG PO HS, (Reported) Metformin HCl 500 Mg Tab.er.24h, 500 MG PO BID, (Reported) Metoprolol Succinate 25 Mg Tab.er.24h, 25 MG PO DAILY Prescribed by: MACY NOLAN on 03/24/21 0936 Pregabalin 50 Mg Capsule, 50 MG PO BID Prescribed by: JOSÉ MARIE on 03/24/21 0625 Primidone 50 Mg Tablet, 50 MG PO HS, (Reported) Rosuvastatin Calcium 20 Mg Tablet, 20 MG PO HS, (Reported) [complete Keto] , 1 PO HS, (Reported) Patient Home Medication List Home Medication List Reviewed: Yes Review of Systems Review of Systems Constitutional: No dizziness, No fever, No malaise, No weakness Eyes: No Symptoms Reported Ears, Nose, Mouth, Throat: no symptoms reported Respiratory: no symptoms reported; No cough, No short of breath Cardiovascular: No edema, No palpitations Musculoskeletal: see HPI, back pain; No joint pain; muscle pain; No neck pain Skin: No change in color, No lumps, No rash Past Tmgkvcv-Hthieg-Akqzkd Hx Patient Social History Tobacco Use?: No Immunizations Up To Date Tetanus Booster (TDap): Unknown Seasonal Allergies Seasonal Allergies: No Past Medical History Surgeries: Yes (hernia repair; ) Hysterectomy, Orthopedic Respiratory: No Cardiac: Yes High Cholesterol, Hypertension Neurological: Yes Stroke Genitourinary: No Gastrointestinal: No Musculoskeletal: No Endocrine: Yes Diabetes, Non-Insulin dep HEENT: No Cancer: No Psychosocial: No Integumentary: No Family Medical History No Pertinent Family Hx Physical Exam Vital Signs Vital Signs - First Documented 05/04/21 21:15 Temp 36.6 Pulse 72 Resp 20 B/P (MAP) 172/103 (126) Pulse Ox 96 O2 Delivery Room Air Capillary Refill : Less Than 3 Seconds Height, Weight, BMI Height: 5'8.00" Weight: 236lbs. oz. 107.440559ap; 35.00 BMI Method:Stated General Appearance: WD/WN, no apparent distress HEENT: PERRL/EOMI, normal ENT inspection, other (small contusion - post scalp w no lac or active bleeding) Neck: non-tender, full range of motion, supple Cardiovascular: regular rate, rhythm, no edema, no gallop Respiratory: chest non-tender, lungs clear, normal breath sounds Gastrointestinal: normal bowel sounds, non tender, soft Back: no CVA tenderness, no vertebral tenderness; No CVA tenderness (R), No CVA tenderness (L), No decreased range of motion; other (soft tissue and muscular TTP upper back w some faint erythema/ abrasions. No vertebral TTP, functional ROM b/l UE and flex/rotation of T-spine and L-spine) Extremities: normal range of motion, non-tender, normal inspection, no pedal edema, normal capillary refill Neurologic/Psychiatric: no motor/sensory deficits, alert, normal mood/affect, oriented x 3 Skin: normal color, warm/dry Progress/Results/Core Measures Results/Orders Vital Signs/I&O 05/04/21 21:15 Temp 36.6 Pulse 72 Resp 20 B/P (MAP) 172/103 (126) Pulse Ox 96 O2 Delivery Room Air Blood Pressure Mean: 126 Departure Impression Primary Impression: Fall from ground level Additional Impressions: Head contusion Qualified Codes: S00.03XA - Contusion of scalp, initial encounter Contusion of back Qualified Codes: S20.229A - Contusion of unspecified back wall of thorax, initial encounter Disposition: 01 HOME, SELF-CARE Condition: Stable Departure-Patient Inst. Decision time for Depature: 21:34 Referrals: GEO THAPA APRN (PCP/Family) Primary Care Physician Patient Instructions: Contusion (DC) Add. Discharge Instructions: follow up with your PCP in 1 week for re-evaluation, sooner if worse All discharge instructions reviewed with patient and/or family. Voiced understanding. MANNY RUBIO DO May 04, 2021 21:35
[2021-05-04 21:40] VITALS: BP 172/103
--- OUTSIDE RECORDS SUMMARY | 2021-05-04 21:58 | XMS REPORT | Encounter Summary ---
Author Author [facility] Address Unknown Phone Unavailable Care Team Providers Care Auto Air Conditioning Mechanic Name Role Phone Mariana Bowers APRN PCP Reason for Referral * Consultation (Routine) Referred By Contact Referred To Contact Status Reason Specialty Diagnoses / Procedures Mariana Bowers APRN [address] [place] [address] [facility] [address] [facility] [address] [place] [address] Closed Specialty Services Neurology Diagnoses Required History of stroke Electronically signed by Mariana Bowers APRN at Encounter Details Care Team Description Date Type Department Mariana Bowers APRN [address] [place], [place] [id number] History of stroke (Primary Dx) 04/04/2021 Transcribe [facility] Neurol ogy Orders [address] [id number] Social History Date Tobacco Use Types Packs/Day Years Used Never Assessed Sex Assigned at Date Recorded Not on file documented as of this encounter Plan of Treatment Order Schedule Name Type Priority Associated Diag noses 1 Occurrences starting 04/04/2021 until 07/05/2021 Amb Referral To Neurology Outpatient Routine Hist ory of stroke Referral documented as of this encounter Visit Diagnoses Diagnosis History of stroke - Primary Transient ischemic attack (TIA), and ce rebral infarction without residual deficits documented in this encounter
== END 2021-05-04 21:42 | disposition home or self-care (01) ==
LOC: EDUNIT# 21:12 → ER FS 21:14
DX: S00.03XA Contusion of scalp, initial encounter (principal); S20.229A Contusion of unspecified back wall of thorax, initial encounter; I10 Essential (primary) hypertension; E11.9 Type 2 diabetes mellitus without complications; E78.00 Pure hypercholesterolemia, unspecified; Z86.73 Personal history of transient ischemic attack (TIA), and cerebral infarction without residual deficits; Z79.82 Long term (current) use of aspirin; Z79.84 Long term (current) use of oral hypoglycemic drugs; Z79.01 Long term (current) use of anticoagulants; W22.8XXA Striking against or struck by other objects, initial encounter
CPT/HCPCS: 99281

== ENCOUNTER → 2021-07-05 | Outpatient (CLI) | payer MEDICARE ==
--- NOTE | 2021-07-05 14:06 | Diagnostic Imaging Report ---
Indication: Recent fall with persistent cervical pain. FINDINGS: 3 views. Cervical spine shows good alignment. Body height is well-maintained without compression fractures. The odontoid is intact. The atlantoaxial joint shows good alignment. Facets are in good alignment. There is moderate severe hypertrophic change noted along the facets bilaterally throughout the neck. There is loss of disc space height at C4-C5, C5-C6 and C6-C7 with hypertrophic change of the endplates as well as the uncovertebral joint. This is most severe at C5-C6. The prevertebral soft tissues are not widened. IMPRESSION: Diffuse cervical spondylosis with rather severe degenerative disc disease noted at C5-C6. There is associated hypertrophic change of the endplates. Dictated by: Dictated on workstation # [id number]
--- NOTE | 2021-07-05 14:13 | Diagnostic Imaging Report ---
INDICATION: Upper abdominal pain. FINDINGS: 3 views. The lung bases are clear. There is moderate amount of stool noted throughout the colon. There are no air-fluid levels demonstrated or free air on the upright film. There is no organomegaly. No pathologic calcifications are seen. Degenerative disc disease noted throughout the lumbar spine. IMPRESSION: Moderate amount of stool present within the colon. No evidence of bowel obstruction. No acute abnormalities. Dictated by: Dictated on workstation # [id number]
== END ==
LOC: RAD FS 11:54
PROVIDERS: ATTEND Nurse Practitioner Family
DX: M47.812 Spondylosis without myelopathy or radiculopathy, cervical region (principal); M50.322 Other cervical disc degeneration at C5-C6 level; R10.10 Upper abdominal pain, unspecified; W19.XXXA Unspecified fall, initial encounter
CPT/HCPCS: 72040; 74019

== ENCOUNTER 2021-09-06 05:35 | Outpatient (CLI) | payer MEDICARE ==
[~2021-09-06] VITALS: Ht 175.3 cm; Wt 111.3 kg
[~2021-09-06 05:35] MED LIST changes: -CITA40TA11 PO; +CITA40TA13 PO
[2021-09-06] MEDS ORDERED: PREG50CA65 PO (15:28)
[2021-09-06] MEDS ORDERED: ALBU0.63 IH (15:28)
[2021-09-06] MEDS ORDERED: FLUT9.9S NS (15:28)
[2021-09-06] MEDS ORDERED: BIOT0.5P MC (15:28)
[2021-09-06] MEDS ORDERED: ONDA4TAB11 PO (15:28)
[2021-09-06] MEDS ORDERED: MULT-974 PO (15:28)
[2021-09-06] MEDS ORDERED: FEXO1TAB97 PO (15:28)
[2021-09-06] MEDS ORDERED: NYST15CR TP (15:28)
[2021-09-06] MEDS ORDERED: TR1C15 TP (15:28)
== END 2021-09-06 16:31 | disposition home or self-care (01) ==
LOC: PREOP 05:35
PROVIDERS: ATTEND Surgery
DX: Z01.818 Encounter for other preprocedural examination (principal)

== ENCOUNTER → 2021-09-12 | Day surgery (SDC) | payer MEDICARE ==
[~2021-09-12] VITALS: Ht 175 cm; Wt 111.0 kg
[~2021-09-12] MED LIST changes: +ALBU0.63 IH; +BIOT0.5P MC; +FEXO1TAB97 PO; +FLUT9.9S NS; +HURRICAINE EXT TUBE (BENZOCAINE) XX PRN; +LACTATED RINGERS 1,000 ML IV ONE; +LACTATED RINGERS 1,000 ML IV STA; +MULT-974 PO; +NYST15CR TP; +ONDA4TAB11 PO; +PROPOFOL INJECTION 50 ML IV ONE; +TR1C15 TP; +meTOprolol 5 MG/5 ML (LOPRESSOR) VIAL ONE; +proPOfol 200 MG/20 ML (DIPRIVAN) VIAL IV ONE
--- OUTSIDE RECORDS SUMMARY | 2021-09-12 11:20 | XMS REPORT | Clinical Summary ---
Author Author [facility] Organization [facility] Address Unknown Phone Unavailable Care Team Providers Care Director Of It Operations Name Role Phone Mariana Bowers APRN PCP Allergies Not on File Medications Not on file Active Problems Not on file Social History Date Tobacco Use Types Packs/Day Years Used Never Assessed Sex Assigned at Date Recorded Not on file Last Filed Vital Signs Not on file Plan of Treatment Care Team Description Date Type Specialty Arthur Otto MD [address] [address] 11/07/2021 Initial consult Neurology Results Not on filefrom Last 3 Months Insurance Type Payer Benefit Subscriber ID Effective Phone Address Plan / Dates Group MEDICARE REPLACEMENT PLAN [employer] [id number] 2019-P [address] MEDICARE resent [id number] [place] [address] Advance Directives For more information, please contact: [phone] 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
[2021-09-12 11:36] VITALS: BP 139/82
--- NOTE | 2021-09-12 11:57 | Progress Note-Pre Operative ---
Pre-Operative Progress Note H&P Reviewed The H&P was reviewed, patient examined and no changes noted. Time Seen by Provider: 11:56 Date H&P Reviewed: Sep 12, 2021 Time H&P Reviewed: 11:56 Pre-Operative Diagnosis: Nausea and rectal bleeding BILL ZHANG DO Sep 12, 2021 11:57
[2021-09-12 13:40] VITALS: BP 187/99
[2021-09-12 13:44] VITALS: BP 187/99
--- NOTE | 2021-09-12 13:44 | Progress Note-Post Operative ---
Post-Operative Progess Note Surgeon (s)/Knitting Teacher (s) Surgeon BILL ZHANG DO Knitting Teacher: PENNY Rainey Pre-Operative Diagnosis Nausea and rectal bleeding Post-Operative Diagnosis Gastritis Small Hiatal hernia Esophagitis Internal hemorrhoidss Procedure & Operative Findings Date of Procedure 09/12/21 Procedure Performed/Findings 1) EGD with bx 2) Colonoscopy PROCEDURE NOTE: After informed consent was obtained, the patient was brought to the endoscopy suite, placed in bed in left lateral decubitus position. She was administered IV sedation by the CONTROL ANALYST who then monitored vitals the entire time, heart rate, blood pressure and pulse ox and the scope was inserted down the mouth through the esophagus into the stomach. On the way down, noted some mild esophagitis, took a picture, pushed into the stomach, pushed past the antrum into the duodenum. Duodenum looked good. Pulled back and did a biopsy of antrum, then retroflexed the scope, saw hiatal hernia, took a picture of this and then pulled the scope into the GE junction, took another picture of the hiatal hernia and then did a biopsy of the GE junction. Pushed the scope back into the stomach, suctioned all the air out of the stomach. At this point pulled the scope up the esophagus and out the mouth. Switched camera, switched gloves, went down below and started the colonoscopy. Pushed all the way into about 160 cm to get all the way to cecum. She had a very twisty distal colon it was hard to get past here. Once in the Cecum took a picture of the appendiceal orifice and noted the ileocecal valve. Then slowly withdrew the scope, insufflating to look circumferentially at the burris starting in the cecum, up the ascending colon to the hepatic flexure, then down the transverse colon, splenic flexure, into the descending colon, down into the sigmoid and finally into the rectum, retroflexed in the rectal vault, saw some minimal internal hemorrhoids and took a picture of this. The patient tolerated the procedure and she recovered in the endoscopy suite. Anesthesia Type IV sedation by CONTROL ANALYST Estimated Blood Loss Estimated blood loss (mL): scant Specimens/Packing Specimens Removed antral bx GE jxn bx BILL ZHANG DO Sep 12, 2021 13:44
--- NOTE | 2021-09-12 13:46 | Endoscopy Discharge Instruct ---
Endo Procedure/Findings Findings 1.: Gastritis 2.: Hiatal Hernia 3.: Internal Hemorrhoids Discharge Instructions - Activity: You might feel a little sleepy until tomorrow. This is due to the medicine you received to relax you. Until tomorrow, you should: NOT drive a car, operate machinery or power tools. NOT drink any alcoholic beverages. NOT make any important decisions or sign importortant papers. Do not return to work until tomorrow, unless otherwise instructed. Resume previous activities tomorrow. Diet: Start by taking liquids. If you tolerate liquids, advance to solid food. 1.: EGD in 3 years 2.: Colonscopy in 10 years Notify Physician - If you experience excessive bleeding, unusual abdominal pain, fever, or chest pain, contact your doctor immediately. BILL ZHANG DO Sep 12, 2021 13:46
--- NOTE | 2021-09-12 13:50 | Anesthesia-General Post-Op ---
MAC Patient Condition Mental Status/LOC: Same as Preop Cardiovascular: Satisfactory Nausea/Vomiting: Absent Respiratory: Satisfactory Pain: Controlled Complications: Absent Post Op Complications Complications None Follow Up Care/Instructions Patient Instructions None needed. Anesthesiology Discharge Order Discharge Order Patient is doing well, no complaints, stable vital signs, no apparent adverse anesthesia problems. No complications reported per nursing. RAYMUNDO OCAMPO CRNA Sep 12, 2021 13:50
[2021-09-12 14:50] VITALS: BP 167/101
== END | disposition home or self-care (01) ==
LOC: ENDO 11:16
PROVIDERS: ATTEND Surgery
DX: K29.71 Gastritis, unspecified, with bleeding (principal); K44.9 Diaphragmatic hernia without obstruction or gangrene; K64.8 Other hemorrhoids; K20.91 Esophagitis, unspecified with bleeding; E78.2 Mixed hyperlipidemia; I10 Essential (primary) hypertension; E11.9 Type 2 diabetes mellitus without complications; K59.00 Constipation, unspecified; J44.9 Chronic obstructive pulmonary disease, unspecified; F32.A Depression, unspecified; E66.9 Obesity, unspecified; G47.33 Obstructive sleep apnea (adult) (pediatric); F17.200 Nicotine dependence, unspecified, uncomplicated; Z79.899 Other long term (current) drug therapy; Z79.84 Long term (current) use of oral hypoglycemic drugs; Z68.36 Body mass index [BMI] 36.0-36.9, adult
CPT/HCPCS: 82947

== ENCOUNTER → 2022-02-10 | Outpatient (CLI) | payer MEDICARE ==
[~2022-02-10] MED LIST changes: -HURRICAINE EXT TUBE (BENZOCAINE) XX PRN; -LACTATED RINGERS 1,000 ML IV ONE; -LACTATED RINGERS 1,000 ML IV STA; -PROPOFOL INJECTION 50 ML IV ONE; -meTOprolol 5 MG/5 ML (LOPRESSOR) VIAL ONE; -proPOfol 200 MG/20 ML (DIPRIVAN) VIAL IV ONE
--- NOTE | 2022-02-10 15:49 | Diagnostic Imaging Report ---
INDICATION: Bilateral knee pain. COMPARISON: None Three radiographic views of the right knee were obtained. FINDINGS: There is no evidence of acute fracture or dislocation. Osseous structures are intact. There are mild osteoarthritic changes. Joint spaces are otherwise maintained. There does appear to be an intra-articular calcified loose body within the posterior joint space, midline. No unexpected radiopaque foreign bodies are seen. IMPRESSION: 1. No acute fracture or dislocation in the right knee. 2. Osteoarthritic changes with probable calcified intra-articular loose body. Dictated by: Dictated on workstation # [id number]
--- NOTE | 2022-02-10 16:33 | Diagnostic Imaging Report ---
INDICATION: PAIN IN LEFT KNEE COMPARISON: None. FINDINGS: 3 views of the left knee joint demonstrate no acute fracture or dislocation. Mild osteoarthritic changes are noted. There is also chondrocalcinosis. No focal osseous lesions are seen. No significant joint effusion is seen. The surrounding soft tissue structures are unremarkable. There are no radiopaque foreign bodies. IMPRESSION: 1. No acute fractures or dislocations of the left knee joint. 2. Mild osteoarthritic changes. 3. Chondrocalcinosis. This may be degenerative in nature as well, but may also be seen with underlying CPPD. Dictated by: Dictated on workstation # [id number]
== END ==
LOC: RAD FS 15:07
PROVIDERS: ATTEND Nurse Practitioner Family
DX: M17.0 Bilateral primary osteoarthritis of knee (principal)
CPT/HCPCS: 73562

== ENCOUNTER → 2023-04-10 | Outpatient (CLI) | payer MEDICARE ==
[~2023-04-10] MED LIST changes: -NYST15CR TP; +NYST15CR35 TP; -ROSU20TA32 PO; +ROSU20TA73 PO
== END ==
LOC: CARD 12:56
PROVIDERS: ATTEND Internal Medicine Cardiovascular Disease
DX: I11.9 Hypertensive heart disease without heart failure (principal)
CPT/HCPCS: 93306